=== PATIENT | male | born 1930 | race Caucasian/White ===

== ENCOUNTER 2017-11-14 23:34 | Inpatient (IN) | payer MEDICARE ==
[2017-11-15] LABS: #Lymphocytes 1.2 thou/uL (1.20-3.40); #Monocytes 0.8 thou/uL (0.11-0.59); %Basophils 0.2 % (0.0-1.0); %Eosinophils 0.2 % (0.0-10.0); %Lymphocytes 8.1 % (21.0-51.0); %Neutrophils 86.5 % (42.0-75.0); Hemoglobin 9.9 g/dL (14.0-18.0); Mean Platelet Volume 9.4 fL (7.4-10.4); Platelet Count 212 thou/uL (130-400); RBC Distribution Width 12.5 % (11.5-14.5); Red Blood Cell (RBC) Count 3.19 mill/uL (4.70-6.10)
[2017-11-15] MEDS ORDERED: Morphine 4 MG/ML VIAL ONE (00:02)
--- NOTE | 2017-11-15 00:06 | RAD ---
CHEST ONE VIEW: HISTORY: Chest pain. COMPARISON: Chest radiograph from 2008. FINDINGS: There are patchy opacities in both lung bases. No pneumothorax. No large effusion. The cardiac jesi houette is similar. IMPRESSION: Patchy opacities in both lung bases may reflect developing pneumonia. POS: [facility]
[2017-11-15 00:17] LABS: ALT (SGPT) 12 U/L (8-55); AST (SGOT) 8 U/L (5-34); Albumin 2.9 g/dL (3.4-4.8); Alkaline Phosphatase 66 U/L (40-150); Anion Gap 12 mmol/L (10-20); BUN (Urea Nitrogen) 31 mg/dL (8.4-25.7); Bilirubin, Total 0.4 mg/dL (0.2-1.2); Calc. Creatinine Clearance 0 mL/min (70-130); Calcium 8.1 mg/dL (7.8-10.44); Carbon Dioxide 26 mmol/L (23-31); Chloride 101 mmol/L (98-107); Estimated GFR-MDRD 49; Globulin 1.5 g/dL (2.4-3.5); Glucose 472 mg/dL (83-110); Lipase 35 U/L (8-78); Potassium 5.2 mmol/L (3.5-5.1); Protein, Total 4.4 g/dL (5.8-8.1); Sodium 134 mmol/L (136-145)
[2017-11-15 00:22] LABS: CKMB 3.2 ng/mL (0-6.6); Troponin I 0.038 ng/mL (< 0.028)
[2017-11-15] MEDS ORDERED: Cefepime 2 GM in Sodium Chloride 0.9% 100 ML IVPB SCH (01:15)
[2017-11-15 01:41] LABS: Bilirubin Negative (Negative); Blood, Urine Negative (Negative); Clarity CLEAR (Clear); Glucose, Urine (Dipstick) >=1000 mg/dL (Negative); Leukocyte Negative (Negative); Nitrite Negative (Negative); Protein, Urine (Dipstick) Negative (Neg-Trace); Specific Gravity, Urine 1.018 (1.002-1.036); Urobilinogen 0.2 mg/dL (0.2-1.0); pH, Urine 6.5 (5.0-9.0)
[2017-11-15 03:22] LABS: Troponin I 0.103 ng/mL (< 0.028)
[2017-11-15 03:41] LABS: Lactic Acid 1.4 mmol/L (0.5-2.2)
[2017-11-15] MEDS ORDERED: Sodium Chloride 0.9% 1,000 ML IV SCH ×2 (04:23→09:00)
[2017-11-15] MEDS ORDERED: Acetaminophen 325 MG TAB PO PRN (04:23)
[2017-11-15] MEDS ORDERED: Ondansetron HCl/PF 4 MG/2 ML Vial IVP PRN (04:23)
[2017-11-15] MEDS ORDERED: Ondansetron ODT 4 MG TAB SL PRN (04:23)
[2017-11-15 04:59] VITALS: BMI 36.6
[2017-11-15 08:20] LABS: Anion Gap 9 mmol/L (10-20); BUN (Urea Nitrogen) 35 mg/dL (8.4-25.7); Calc. Creatinine Clearance 71 mL/min (70-130); Calcium 8.1 mg/dL (7.8-10.44); Carbon Dioxide 26 mmol/L (23-31); Chloride 105 mmol/L (98-107); Estimated GFR-MDRD 59; Glucose 302 mg/dL (83-110); Magnesium 2.5 mg/dL (1.6-2.6); Potassium 4.6 mmol/L (3.5-5.1); Sodium 135 mmol/L (136-145)
[2017-11-15 08:23] LABS: Troponin I 0.906 ng/mL (< 0.028)
[2017-11-15] MEDS ORDERED: Nitroglycerin 0.4 MG TAB (25 Tab Bottle) PO PRN (08:49)
[2017-11-15] MEDS ORDERED: Ondansetron ODT 4 MG TAB PO PRN (08:50)
[2017-11-15] MEDS ORDERED: Mag-Al 1200 mg/1200 mg/30 ML UDCUP PO PRN (08:50)
[2017-11-15] MEDS ORDERED: Enoxaparin Sodium 40 MG/0.4 ML SYRINGE SC SCH ×2 (09:00→09:30)
[2017-11-15] MEDS ORDERED: Nitroglycerin 0.4 MG TAB (25 Tab Bottle) SL SCH (09:00)
[2017-11-15] MEDS ORDERED: Carvedilol 3.125 MG TAB PO SCH (09:00)
[2017-11-15] MEDS ORDERED: Lisinopril 20 MG TAB PO SCH ×2 (09:00)
[2017-11-15 09:11] LABS: Hemoglobin A1c 7.3 % (4.0-6.0)
[2017-11-15] MEDS ORDERED: Dextrose 5% in Water 1,000 ML IV PRN (09:26)
[2017-11-15] MEDS ORDERED: Dextrose 50% Abboject 50 ML SYRINGE SLOW IVP PRN (09:26)
[2017-11-15] MEDS ORDERED: Insulin Regular 300 UNITS/3 ML VIAL SC PRN (09:26)
[2017-11-15] MEDS ORDERED: Enoxaparin Sodium 120 MG/0.8 ML SYRINGE SC SCH ×2 (09:45→19:45)
[2017-11-15 09:57] LABS: Hemoglobin 9.8 g/dL (14.0-18.0); Mean Corpuscular HGB CONC 32.8 g/dL (32.0-36.0); Mean Corpuscular Hemoglobin 30.6 pg (27.0-31.0); Mean Corpuscular Volume 93.3 fL (78.0-98.0); Mean Platelet Volume 9.3 fL (7.4-10.4); Platelet Count 188 thou/uL (130-400); RBC Distribution Width 12.6 % (11.5-14.5); White Blood Cell (WBC) Count 19.1 thou/uL (4.8-10.8)
--- NOTE | 2017-11-15 09:59 | CON ---
DATE OF CONSULTATION: 11/15/2017 REASON FOR CONSULTATION: Pain between his shoulder blades, non-ST elevation myocardial infarction. Mr. Nir Johnson is an 87-year-old gentleman with history of hypertension, coronary artery disease, ob esity, transferred here with shortness of breath and increased white count, thought to have pneumonia , but appears to have had a non-ST elevation infarction. Mr. Johnson has a very long cardiac history. He underwent a percutaneous coronary angioplasty of a di agonal branch in 1995. At that time diagonal branch was successfully dilated. The patient may actually have had a previous angioplasty prior to that, it is unclear from the record s available in the chart. The patient presented with recurrent chest pain between his shoulder blade s 2000, that was found to have a stable lesion in his diagonal branch, but a critical lesion is right coronary artery. He had successful stent implantation. I believe it is 3 mm x 15 mm nondrug coated stent. The patient has done really well from a cardiac standpoint since then. He has had some hype rtension and peripheral edema. He was transferred from an outlying institution on this occasion with shortness of breath, some pain between his shoulder blades. The white count was elevated. He was t hought to potentially have pneumonia, but his follow up cardiac enzymes have been elevated. MEDICATIONS: 1. He was on aspirin. 2. Nitroglycerin. 3. Tamsulosin. 4. Lisinopril. 5. Furosemide. 6. Carvedilol. 7. Atorvastatin. 8. Amlodipine. ALLERGIES: FLUORESCEIN DYE, HYDROCODONE, PENICILLIN. REVIEW OF SYSTEMS: Constitutional: No significant weight gain or loss, but he is in active and rela tively poor health. Vision: No changes. Hearing: No changes. Pulmonary: Some shortness of breat h with exertion. Cardiac: As outlined above. Gastrointestinal: No nausea, vomiting, diarrhea. Sk in: No rashes. Neurologic: No unilateral weakness or numbness. Psychiatric: No unusual depressio n or anxiety. Hematologic: No unusual bruising. Genitourinary: No burning with urination. Muscul oskeletal: No unusual joint pains. PHYSICAL EXAMINATION: GENERAL: This is an 87-year-old gentleman resting in his bed, not having any pain now. VITAL SIGNS: His blood pressure is 126/61, pulse 74 regular. EYES: Sclerae nonicteric. Mouth mucous membranes moist. NECK: Supple, no lymphadenopathy. LUNGS: Clear, no wheezing, rales or rhonchi. CARDIOVASCULAR: Normal S1, normal S2. There is no murmur, rub or gallop. ABDOMEN: Soft, nontender, no hepatosplenomegaly, is obese. EXTREMITIES: No clubbing or cyanosis. He has mild to moderate edema. He has palpable posterior tib ial pulses. LABORATORY AND X-RAY FINDINGS: EKG initially did not show any acute changes. He does have right bun dle branch block with a left axis deviation. Followup EKG shows some T-wave inversions in V4 through V6. Troponin level 0.9. ASSESSMENT: 1. Non-ST elevation myocardial infarction. 2. History of hypertension. 3. Relatively inactive and would be a very poor candidate for surgical therapy. 4. Probably has sleep apnea. 5. Hypercholesterolemia. PLAN: 1. I will give him a full dose enoxaparin. 2. We will load him with Plavix. I think he would be a very poor surgical candidate. 3. Continue aspirin. 4. Echocardiogram. 5. Tentative plan for cardiac catheterization tomorrow. I discussed risks of stroke, heart attack, iodine allergy, loss of blood supply to the leg or kidney, stent thrombosis, stent restenosis. He un derstands and wishes to proceed.
[2017-11-15] MEDS ORDERED: Communication Order-Pharmacy FS SCH (10:00)
[2017-11-15 10:25] LABS: #Eosinphils 0.1 thou/uL (0.0-0.7); #Lymphocytes 1.5 thou/uL (1.20-3.40); #Monocytes 1.5 thou/uL (0.11-0.59); %Basophils 0.1 % (0.0-1.0); %Eosinophils 0.4 % (0.0-10.0); %Lymphocytes 7.7 % (21.0-51.0); %Monocytes 7.9 % (0.0-10.0); %Neutrophils 83.9 % (42.0-75.0); Band 9 % (5-11); Eosinophils 1 % (0-10); Lymphocytes 10 % (21-51); MDiff Complete? YES; Monocytes 8 % (0-10); Neutrophil 72 % (42-75); PLT Morphology Comment Appears Adequate; Polychromasia SLIGHT = 2-3 cells (100X) (0-2/hpf)
[2017-11-15] MEDS: Docusate 100 MG CAP PO SCH ×2 (10:27→22:20)
[2017-11-15] MEDS: Carvedilol 3.125 MG TAB PO SCH ×2 (10:27→23:21)
[2017-11-15] MEDS: Atorvastatin Calcium 40 MG TAB PO SCH (10:27)
[2017-11-15] MEDS: Aspirin 325 MG TAB PO SCH (10:27)
[2017-11-15] MEDS: Famotidine 20 MG TAB PO SCH ×2 (10:27→22:21)
[2017-11-15] MEDS: Nitroglycerin 2% Ointment 1 INCH/1 GM Packet TOP SCH ×3 (10:27→18:48)
[2017-11-15] MEDS: Insulin Regular 300 UNITS/3 ML VIAL SC PRN ×2 (10:28→16:57)
[2017-11-15] MEDS: Tamsulosin HCl 0.4 MG CAP PO SCH (10:28)
[2017-11-15] MEDS: Cefepime 1 GM in Sodium Chloride 0.9% 100 ML IVPB SCH ×2 (11:58→22:19)
[2017-11-15] MEDS: Timolol 0.5% Ophth Soln 5 ml Bottle EA EYE SCH (12:00)
[2017-11-15 12:57] LABS: Troponin I 1.836 ng/mL (< 0.028)
--- NOTE | 2017-11-15 13:23 | HP ---
DATE OF ADMISSION: 11/15/2017 PRIMARY CARE PHYSICIAN: Radha Monroe MD PRIMARY TERRA [place]: Dr. Smiley. CHIEF COMPLAINT: Chest discomfort. HISTORY OF PRESENT ILLNESS: Patient is an 87-year-old male with coronary artery disease, status post stent placement, obesity with suspected obstructive sleep apnea, hypertension, and hyperlipidemia, p resented to the emergency room with sudden onset of chest discomfort between his scapula that woke hi m up around 10:30 p.m. It was severe in intensity, associated with shortness of breath and diaphores is. There were no associated palpitations, lightheadedness or syncope. There was some nausea; howev er, denies any vomiting. Lately, patient has been getting short of breath on minimal exertion accord ing to the spouse. Please note that patient is a poor historian and history was obtained from the sp ou over the phone. There was no heartburn reported. He occasionally has dry cough. Patient state d that the pain radiated to his left arm. He is chest pain free at this time. PAST MEDICAL HISTORY: 1. Coronary artery disease, status post stent placement. 2. History of prostate cancer, status post radiation and hormone treatment. 3. Hypertension. 4. Dyslipidemia. 5. Glaucoma. 6. Diverticulosis. 7. Macular degeneration. 8. Degenerative joint disease. 9. Prediabetes. 10. Basal cell carcinoma, status post removal in 1984. PAST SURGICAL HISTORY: 1. Coronary stent placement in 2000. 2. Lumbar surgery in 2007. 3. Right knee meniscus repair. 4. Bilateral cataract surgery in 2012. 5. Colonoscopy in 2010. He was advised to repeat colonoscopy; however, the patient declined. ALLERGIES: The patient is allergic to HYDROCODONE, PENICILLIN, and FLUORESCEIN. CURRENT HOME MEDICATIONS: Aspirin 81 mg daily, amlodipine 5 mg daily, sublingual nitroglycerin as ne eded, Lipitor 40 mg daily, Carvedilol 3.125 mg b.i.d., Lasix 40 mg b.i.d., lisinopril 20 mg b.i.d., m agnesium oxide 800 mg daily, Flomax 0.4 mg daily, timolol eyedrops daily. SOCIAL HISTORY: Patient currently lives at home with spouse. He is a former smoker, quit in the 199 0s. He is retired. He has 3 children. He retired from [employer]. DPOA is the spouse. He is FULL CODE. FAMILY HISTORY: Positive for heart disease. Mother had colon cancer. One son with prostate cancer. REVIEW OF SYSTEMS: The following complete review of systems was negative, unless otherwise mentioned in the HPI or below: Constitutional: Weight loss or gain, ability to conduct usual activities. Sk in: Rash, itching. Eyes: Double vision, pain. ENT/Mouth: Nose bleeding, neck stiffness, pain, ten derness. Cardiovascular: Palpitations, dyspnea on exertion, orthopnea. Respiratory: Shortness of breath, wheezing, cough, hemoptysis, fever or night sweats. Gastrointestinal: Poor appetite, abdomi nal pain, heartburn, nausea, vomiting, constipation, or diarrhea. Genitourinary: Urgency, frequency , dysuria, nocturia. Musculoskeletal: Pain, swelling. Neurologic/Psychiatric: Anxiety, depression . Allergy/Immunologic: Skin rash, bleeding tendency. PHYSICAL EXAMINATION: VITAL SIGNS: Temperature 98.2, respirations 20, pulse 78, blood pressure 107/44 with O2 saturation 9 4% on room air. GENERAL: An 87-year-old male, obese, in no apparent distress. Denies any chest discomfort at this t wendi. HEENT: Head atraumatic, normocephalic. Sclerae are anicteric. Moist mucous membrane, no oral lesio n. NECK: Supple, no JVD, no carotid bruit. Again, JVD not really appreciated due to body habitus. LUNGS: Showed scattered rales at bases bilaterally. No wheezing. Lungs were symmetrical. No acces gemma muscle use. HEART: S1, S2 present. Regular rate and rhythm, no significant murmurs or rubs appreciated. ABDOMEN: Obese, soft. Bowel sounds present. EXTREMITIES: Trace edema in bilateral lower extremities. SKIN: Warm and dry. LYMPH NODES: No palpable lymph nodes in the neck. PERIPHERAL VASCULAR: Radial pulses palpable bilaterally. MUSCULOSKELETAL: No joint swelling or tenderness. LABORATORY FINDINGS: CBC showed WBC of 19.1 with hemoglobin 9.8, hematocrit 29.8, platelet of 188. Chemistries showed sodium 134, potassium 5.2, chloride 101, bicarb 26, BUN 31, creatinine 1.38. Hemo globin A1c 7.3. Maximum troponin 0.9. Lactic acid on admission was 2.5, albumin 2.9 with total prot ein of 4.4. Urinalysis was negative for WBC, bacteria. Influenza testing was negative. Chest x-ray by my review showed some patchy opacities in both the lung base. EKG by my review showed sinus rhyt hm with first degree AV block, left axis deviation, right bundle branch block with T-wave inversions in the lateral leads. IMPRESSION: 1. Non-ST elevation myocardial infarction. 2. Leukocytosis with questionable infiltrate suspected community-acquired pneumonia, questionable pn eumococcal. 3. Acute kidney injury on chronic kidney disease stage 2. 4. Coronary artery disease, status post stent placement. 5. Obesity with a body mass index of 36.7. 6. Suspected obstructive sleep apnea. 7. Moderate protein calorie malnutrition. 8. Hyperkalemia, probably secondary to acute kidney injury. 9. Hyponatremia. 10. Newly diagnosed diabetes mellitus type 2. 11. Lactic acidosis, probably secondary to suspected pneumonia. 12. Chronic anemia, normochromic normocytic. 13. History of prostate cancer. 14. Dyslipidemia. 15. Venous insufficiency. 16. Glaucoma. 17. Diverticulosis. PLAN: The patient will be monitored on telemetry unit. Cardiology has been consulted. We will cont inue aspirin. I discussed the case with Dr. Smiley. He will also receive a loading dose of Plavix w ith 1 mg/kg dose of Lovenox. We will empirically start him on antibiotics for suspected pneumonia. We will recheck chest x-ray in a.m. We will reduce the dose of lisinopril due to acute kidney injury and hyperkalemia. We will recheck labs in a.m. Repeat troponins. We will hold IV fluids due to hess spected congestive heart failure. Echocardiogram will be obtained. We will keep him n.p.o. past mid night for possible cardiac intervention. Plan of care was discussed with the patient and the family in detail. They stated understanding. The patient will require 2-3 days for stabilization. Cardiac rehabilitation will be consulted.
[2017-11-15] MEDS: Lisinopril 10 MG TAB PO SCH (23:27)
[2017-11-16] MEDS: Nitroglycerin 2% Ointment 1 INCH/1 GM Packet TOP SCH ×3 (02:45→17:15)
[2017-11-16] MEDS ORDERED: Clopidogrel Bisulfate 75 MG TAB PO SCH (06:00)
[2017-11-16 06:41] LABS: #Eosinphils 0.2 thou/uL (0.0-0.7); #Lymphocytes 1.4 thou/uL (1.20-3.40); #Monocytes 0.8 thou/uL (0.11-0.59); #Neutrophils 13.4 thou/uL (1.40-6.50); %Basophils 0.2 % (0.0-1.0); %Eosinophils 1.2 % (0.0-10.0); %Lymphocytes 9.1 % (21.0-51.0); %Monocytes 4.9 % (0.0-10.0); %Neutrophils 84.6 % (42.0-75.0); Hemoglobin 8.6 g/dL (14.0-18.0); Mean Corpuscular HGB CONC 32.9 g/dL (32.0-36.0); Mean Corpuscular Hemoglobin 31.2 pg (27.0-31.0); Mean Corpuscular Volume 94.6 fL (78.0-98.0); Mean Platelet Volume 9.3 fL (7.4-10.4); Platelet Count 182 thou/uL (130-400); RBC Distribution Width 12.8 % (11.5-14.5); Red Blood Cell (RBC) Count 2.75 mill/uL (4.70-6.10); White Blood Cell (WBC) Count 15.8 thou/uL (4.8-10.8)
[2017-11-16 06:44] LABS: Anion Gap 9 mmol/L (10-20); BUN (Urea Nitrogen) 59 mg/dL (8.4-25.7); Calc. Creatinine Clearance 73 mL/min (70-130); Calcium 8.2 mg/dL (7.8-10.44); Carbon Dioxide 27 mmol/L (23-31); Chloride 106 mmol/L (98-107); Estimated GFR-MDRD 61; Glucose 214 mg/dL (83-110); Magnesium 2.5 mg/dL (1.6-2.6); Potassium 4.4 mmol/L (3.5-5.1); Sodium 138 mmol/L (136-145)
[2017-11-16 06:48] LABS: Critical Call Chem Troponin I RESULT DECREASING; Troponin I 1.201 ng/mL (< 0.028)
[2017-11-16] MEDS ORDERED: Sodium Chloride 0.9% 1,000 ML IV SCH ×2 (07:00→09:28)
[2017-11-16] MEDS: Clopidogrel Bisulfate 300 MG TAB PO SCH ×2 (07:14→07:17)
[2017-11-16] MEDS ORDERED: Nitroglycerin 100MG/250ML BOT 0 ML ONE (07:16)
[2017-11-16] MEDS ORDERED: Lidocaine 1% (PF) 30 ML VIAL ONE (07:16)
[2017-11-16] MEDS: Lisinopril 10 MG TAB PO SCH (07:17)
[2017-11-16] MEDS: Aspirin 325 MG TAB PO SCH (07:17)
[2017-11-16] MEDS: Carvedilol 3.125 MG TAB PO SCH ×2 (07:18→21:22)
[2017-11-16] MEDS: Cefepime 1 GM in Sodium Chloride 0.9% 100 ML IVPB SCH ×2 (07:22→22:34)
[2017-11-16] MEDS ORDERED: Fentanyl 100 MCG/2 ML VIAL ONE (08:49)
[2017-11-16] MEDS ORDERED: Iopamidol 370 76% 100 ML VIAL ONE (09:01)
--- NOTE | 2017-11-16 09:13 | RAD ---
CHEST TWO VIEWS: HISTORY: Shortness of breath. FINDINGS: Heart size is enlarged. There are atherosclerotic changes of the aorta. The lungs are clear of inf iltrates. There are arthritic changes of the spine. IMPRESSION: Cardiomegaly. POS: [facility]
[2017-11-16] MEDS ORDERED: Nitroglycerin 0.4 MG TAB (25 Tab Bottle) SL PRN (09:29)
[2017-11-16] MEDS ORDERED: Sodium Chloride 0.9% 200 ML IV PRN (09:30)
[2017-11-16] MEDS: Atorvastatin Calcium 40 MG TAB PO SCH (11:17)
[2017-11-16] MEDS: Ondansetron HCl/PF 4 MG/2 ML Vial IVP PRN (11:18)
[2017-11-16] MEDS: Famotidine 20 MG TAB PO SCH ×2 (11:18→21:22)
[2017-11-16] MEDS: Tamsulosin HCl 0.4 MG CAP PO SCH (11:18)
[2017-11-16] MEDS: Docusate 100 MG CAP PO SCH ×2 (11:18→21:22)
[2017-11-16] MEDS: Timolol 0.5% Ophth Soln 5 ml Bottle EA EYE SCH (11:26)
[2017-11-16] MEDS: Acetaminophen 325 MG TAB PO PRN (14:02)
[2017-11-16] MEDS: traMADol HCl 50 MG TAB PO PRN (17:17)
[2017-11-16] MEDS ORDERED: Furosemide 20 MG/2 ML VIAL SLOW IVP SCH (18:30)
[2017-11-16] MEDS: Senokot 8.6 MG TAB PO PRN (19:11)
[2017-11-16] MEDS: Lisinopril 5 MG TAB PO SCH (21:23)
--- NOTE | 2017-11-16 22:17 | PDOC.PN ---
- Subjective Encounter Start Date: 11/16/17 Encounter Start Time: 12:30 Patient seen and examined for NSTEMI/Pneumonia. s/p Cath. No CP/SOB. Feels better. No new complaints. No overnight events - Objective Resuscitation Status: Resuscitation Status FULL:Full Resuscitation MAR Reviewed: Yes Vital Signs & Weight: Vital Signs (12 hours) Temp Pulse Resp BP BP Pulse Ox 11/16/17 21:23 100 124/76 11/16/17 15:18 97.6 F 68 17 122/75 97 11/16/17 11:56 98.1 F 63 20 135/71 95 11/16/17 11:26 70 Weight Admit Weight 241 lb 1.6 oz Weight 241 lb 1.6 oz I&O: 11/15/17 11/16/17 11/17/17 06:59 06:59 06:59 Intake Total 900 Balance 900 Result Diagrams: 11/16/17 05:44 11/16/17 05:44 Additional Labs: Accuchecks 11/16/17 11/16/17 11/16/17 16:42 10:48 05:49 POC Glucose 215 H 224 H 229 H EKG Reviewed by me: Yes (Tele SR) Phys Exam - Physical Examination Constitutional: NAD Neck: no nodes, no JVD Respiratory: no wheezing, no rhonchi Scat bibasilar rales, Symmetrical Cardiovascular: RRR, no rub No heaves/pulsations Gastrointestinal: soft, non-tender, positive bowel sounds Musculoskeletal: no edema Neurological: non-focal, normal sensation, moves all 4 limbs Psychiatric: normal affect, A&O x 3 Dx/Plan - Plan DVT proph w/SCDs IMPRESSION: 1. Non-ST elevation myocardial infarction. 2. Leukocytosis with questionable infiltrate suspected community-acquired pneumonia, questionable pneumococcal. - ruled out 3. Acute kidney injury on chronic kidney disease stage 2. 4. Coronary artery disease, status post stent placement. 5. Obesity with a body mass index of 36.7. 6. Suspected obstructive sleep apnea. 7. Moderate protein calorie malnutrition. 8. Hyperkalemia, probably secondary to acute kidney injury. 9. Hyponatremia. 10. Newly diagnosed diabetes mellitus type 2. 11. Lactic acidosis, probably secondary to suspected pneumonia. 12. Chronic anemia, normochromic normocytic. 13. History of prostate cancer. 14. Dyslipidemia. 15. Venous insufficiency. 16. Glaucoma. 17. Diverticulosis. PLAN: s/p Cath DC ATbx- No infiltrates on CXR - PA and Lat AM labs Cont ASA/Plavix/Coreg/Statins/ACEI Await Echo Review of Systems - Review of Systems Respiratory: negative: Cough, Dry, Shortness of Breath, Hemoptysis, SOB with Excertion, Pleuritic Pain, Sputum, Wheezing Cardiovascular: negative: chest pain, palpitations, orthopnea, paroxysmal nocturnal dyspnea, edema, light headedness, other Gastrointestinal: negative: Nausea, Vomiting, Abdominal Pain, Diarrhea, Constipation, Melena, Hematochezia, Other - Medications/Allergies Allergies/Adverse Reactions: Allergies Allergy/AdvReac Type Severity Reaction Status Date / Time fluorescein Allergy Verified 11/15/17 05:04 hydrocodone Allergy Verified 11/15/17 05:03 Penicillins Allergy Verified 11/15/17 05:03 Medications: Current Medications Acetaminophen (Tylenol) 650 mg PO Q4H PRN PRN Reason: Headache/Fever or Pain Last Admin: 11/16/17 14:02 Dose: 650 mg Al Hydroxide/Mg Hydroxide (Maalox) 30 ml PO Q6H PRN PRN Reason: Heartburn or Indigestion Aspirin (Aspirin) 325 mg PO DAILY [facility] Last Admin: 11/16/17 07:17 Dose: 325 mg Atorvastatin Calcium (Lipitor) 40 mg PO DAILY [facility] Last Admin: 11/16/17 11:17 Dose: 40 mg Calcium Carbonate (Tums) 1,000 mg PO Q4H PRN PRN Reason: Heartburn or Indigestion Carvedilol (Coreg) 6.25 mg PO BID [facility] Last Admin: 11/16/17 21:22 Dose: 6.25 mg Dextrose/Water (Dextrose 50%) 25 gm SLOW IVP PRN PRN PRN Reason: Hypoglycemia Docusate Sodium (Colace) 100 mg PO BID [facility] Last Admin: 11/16/17 21:22 Dose: 100 mg Famotidine (Pepcid) 20 mg PO BID [facility] Last Admin: 11/16/17 21:22 Dose: 20 mg Glucagon (Glucagon) 1 mg IM PRN PRN PRN Reason: Hypoglycemia Cefepime HCl 1 gm/ Sodium (Chloride) 100 mls @ 200 mls/hr IVPB Q12HR [facility] Last Admin: 11/16/17 07:22 Dose: 100 mls Dextrose/Water (D5w) 1,000 mls @ 0 mls/hr IV .Q0M PRN PRN Reason: Hypoglycemia Sodium Chloride (Normal Saline 0.9%) 200 mls @ 0 mls/hr IV ONE PRN PRN Reason: Bolus PRN SBP < 90 mm Hg Stop: 11/19/17 09:31 Lisinopril (Zestril) 5 mg PO BID [facility] Last Admin: 11/16/17 21:23 Dose: 5 mg Nitroglycerin (Nitro-Bid 2% Ointment) 0.5 inch TOP Q8H [facility] Last Admin: 11/16/17 17:15 Dose: 0.5 inch Nitroglycerin (Nitrostat) 0.4 mg PO Q5MIN PRN PRN Reason: Chest Pain Nitroglycerin (Nitrostat) 0.4 mg SL Q5MIN PRN PRN Reason: Chest Pain Ondansetron HCl (Zofran Odt) 4 mg PO Q6H PRN PRN Reason: Nausea/Vomiting Ondansetron HCl (Zofran) 4 mg IVP Q6H PRN PRN Reason: Nausea/Vomiting Last Admin: 11/16/17 11:18 Dose: 4 mg Senna (Senokot) 2 tab PO HSPRN PRN PRN Reason: Constipation Last Admin: 11/16/17 19:11 Dose: 2 tab Sodium Chloride (Flush - Normal Saline) 10 ml IVF Q12HR [facility] Last Admin: 11/16/17 21:24 Dose: 10 ml Sodium Chloride (Flush - Normal Saline) 10 ml IVF PRN PRN PRN Reason: Saline Flush Tamsulosin HCl (Flomax) 0.4 mg PO DAILY [facility] Last Admin: 11/16/17 11:18 Dose: 0.4 mg Timolol Maleate (Timoptic 0.5% Ophth Soln) 1 drop EA EYE DAILY [facility] Last Admin: 11/16/17 11:26 Dose: 1 drp Tramadol HCl (Ultram) 50 mg PO Q6H PRN PRN Reason: Moderate Pain (4-6) Last Admin: 11/16/17 17:17 Dose: 50 mg
[2017-11-17 05:58] LABS: Anion Gap 9 mmol/L (10-20); BUN (Urea Nitrogen) 38 mg/dL (8.4-25.7); Calc. Creatinine Clearance 84 mL/min (70-130); Calcium 8.2 mg/dL (7.8-10.44); Carbon Dioxide 27 mmol/L (23-31); Chloride 106 mmol/L (98-107); Estimated GFR-MDRD 71; Glucose 190 mg/dL (83-110); Potassium 4.4 mmol/L (3.5-5.1); Sodium 138 mmol/L (136-145)
[2017-11-17 06:02] LABS: #Eosinphils 0.2 thou/uL (0.0-0.7); #Lymphocytes 1.2 thou/uL (1.20-3.40); #Monocytes 0.9 thou/uL (0.11-0.59); #Neutrophils 12.5 thou/uL (1.40-6.50); %Basophils 0.3 % (0.0-1.0); %Eosinophils 1.5 % (0.0-10.0); %Lymphocytes 8.4 % (21.0-51.0); %Monocytes 6.1 % (0.0-10.0); %Neutrophils 83.7 % (42.0-75.0); Mean Corpuscular HGB CONC 32.6 g/dL (32.0-36.0); Mean Corpuscular Volume 94.9 fL (78.0-98.0); Mean Platelet Volume 9.1 fL (7.4-10.4); Platelet Count 187 thou/uL (130-400); RBC Distribution Width 13.2 % (11.5-14.5); Red Blood Cell (RBC) Count 2.57 mill/uL (4.70-6.10); White Blood Cell (WBC) Count 14.9 thou/uL (4.8-10.8)
[2017-11-17] MEDS: Aspirin 325 MG TAB PO SCH (08:02)
[2017-11-17] MEDS: Carvedilol 3.125 MG TAB PO SCH ×2 (08:02→21:34)
[2017-11-17] MEDS: Famotidine 20 MG TAB PO SCH ×2 (08:02→21:32)
[2017-11-17] MEDS: Lisinopril 5 MG TAB PO SCH ×2 (08:02→21:31)
[2017-11-17] MEDS: Atorvastatin Calcium 40 MG TAB PO SCH (08:02)
[2017-11-17] MEDS: Docusate 100 MG CAP PO SCH (08:02)
[2017-11-17] MEDS: Timolol 0.5% Ophth Soln 5 ml Bottle EA EYE SCH (08:03)
[2017-11-17] MEDS: Tamsulosin HCl 0.4 MG CAP PO SCH (08:03)
[2017-11-17] MEDS: traMADol HCl 50 MG TAB PO PRN ×2 (08:04→19:18)
[2017-11-17] MEDS ORDERED: Aspirin 325 MG TAB PO SCH (09:00)
--- NOTE | 2017-11-17 09:07 | PRG ---
DATE OF SERVICE: 11/17/2017 SUBJECTIVE: Mr. Johnson this morning started having chest pain or pressure. He said he slept well, b ut he is frustrated this morning. He is constipated. He had some shoulder pain, but does not sound like angina. PHYSICAL EXAMINATION: VITAL SIGNS: Blood pressure is 119/71, pulse 70, it is sinus with PACs on the monitor. LUNGS: Clear. CARDIAC: Normal S1, normal S2 with some premature contractions. ABDOMEN: Soft, nontender. EXTREMITIES: There is mild edema. LABORATORY: The hemoglobin is decreased to 8. ASSESSMENT: 1. Coronary artery disease, stable, has occluded right coronary artery, likely chronic with multiple subtotal lesions prior to the occlusion. There are collaterals from the left side. 2. Ejection fraction is 55-60%. 3. Some element of diastolic heart failure with increased BNP. 4. Premature atrial contractions. 5. Obesity. 6. Probable sleep apnea. 7. Constipation. PLAN: 1. He will receive lactulose. 2. Check iron levels, if he is low give him intravenous iron. 3. He may ultimately need blood, if so, he will need Lasix as well. 4. Continue carvedilol and lisinopril. 5. Aspirin without Plavix. 6. Statin certainly at the time of discharge.
[2017-11-17] MEDS ORDERED: Bisacodyl 10 MG SUPP PR PRN (09:38)
[2017-11-17] MEDS ORDERED: Polyethylene Glycol 3350 17 GM Packet PO SCH (09:45)
[2017-11-17] MEDS ORDERED: Senokot S 8.6-50 MG TAB PO SCH (09:45)
[2017-11-17 09:53] LABS: Iron 84 ug/dL (65-175); Iron Binding Capacity, Total 260 mcg/dL (261-462)
[2017-11-17] MEDS: Insulin Regular 300 UNITS/3 ML VIAL SC PRN ×3 (11:50→21:39)
[2017-11-17] MEDS: Ondansetron HCl/PF 4 MG/2 ML Vial IVP PRN (12:01)
[2017-11-17] MEDS ORDERED: Fleet Enema 133 ML BOT PR PRN (13:06)
--- NOTE | 2017-11-17 15:26 | RAD ---
KUB AND UPRIGHT: HISTORY: Abdominal pain and constipation. FINDINGS: The bowel gas pattern appears nonobstructed. No free air. No radiopaque calculi are demonstrated. There are arthritic changes of the spine and hips. Vascular calcifications are noted. IMPRESSION: No acute findings. POS: [facility]
--- NOTE | 2017-11-17 18:41 | PDOC.PN ---
- Subjective Encounter Start Date: 11/17/17 Encounter Start Time: 09:00 Patient seen and examined for NSTEMI. No new complaints. No CP/cough. No overnight events - Objective Resuscitation Status: Resuscitation Status FULL:Full Resuscitation MAR Reviewed: Yes Vital Signs & Weight: Vital Signs (12 hours) Temp Pulse Pulse Pulse Resp BP BP 11/17/17 15:53 97.8 F 65 16 11/17/17 11:56 97.9 F 67 18 11/17/17 11:39 97.9 F 67 18 11/17/17 09:40 76 66 128/65 11/17/17 08:03 68 119/71 11/17/17 08:02 68 119/71 11/17/17 07:40 11/17/17 07:32 97.4 F L 68 20 BP BP Pulse Ox 11/17/17 15:53 126/61 97 11/17/17 11:56 112/55 L 96 11/17/17 11:39 112/55 L 96 11/17/17 09:40 111/56 L 11/17/17 08:03 11/17/17 08:02 11/17/17 07:40 96 11/17/17 07:32 119/71 96 Weight Admit Weight 241 lb 1.6 oz Weight 241 lb 1.6 oz I&O: 11/16/17 11/17/17 11/18/17 06:59 06:59 06:59 Intake Total 900 460 600 Balance 900 460 600 Result Diagrams: 11/17/17 05:08 11/17/17 05:08 Additional Labs: Accuchecks 11/17/17 11/17/17 11/17/17 16:49 10:42 06:25 POC Glucose 263 H 241 H 201 H 11/17/17 11/16/17 02:08 20:32 POC Glucose 214 H 243 H EKG Reviewed by me: Yes (Tele SR) Phys Exam - Physical Examination Constitutional: NAD Respiratory: no wheezing, no rhonchi Cardiovascular: RRR, no rub Gastrointestinal: soft, non-tender, positive bowel sounds Musculoskeletal: no edema Neurological: non-focal, moves all 4 limbs Psychiatric: A&O x 3 Dx/Plan - Plan DVT proph w/SCDs IMPRESSION: 1. Non-ST elevation myocardial infarction. s/p Cath 2. Acute kidney injury on chronic kidney disease stage 2. 3. Coronary artery disease, status post stent placement. 4. Newly diagnosed diabetes mellitus type 2. on Sliding scale 5. Obesity with a body mass index of 36.7. 6. Suspected obstructive sleep apnea. 7. Moderate protein calorie malnutrition. 8. Hyperkalemia, probably secondary to acute kidney injury. 9. Hyponatremia. 10. Diverticulosis. 11. Lactic acidosis, probably secondary to suspected pneumonia. 12. Chronic anemia, normochromic normocytic. 13. History of prostate cancer. 14. Dyslipidemia. 15. Venous insufficiency. 16. Glaucoma. PLAN: Cont ASA/Coreg/Statins/ACEI Echo - normal EF Stat Metformin in AM Treat constipation CBC in AM Review of Systems - Review of Systems Respiratory: negative: Cough, Dry, Shortness of Breath, Hemoptysis, SOB with Excertion, Pleuritic Pain, Sputum, Wheezing Cardiovascular: negative: chest pain, palpitations, orthopnea, paroxysmal nocturnal dyspnea, edema, light headedness, other Gastrointestinal: Constipation. negative: Nausea, Vomiting, Abdominal Pain, Diarrhea, Melena, Hematochezia, Other - Medications/Allergies Allergies/Adverse Reactions: Allergies Allergy/AdvReac Type Severity Reaction Status Date / Time fluorescein Allergy Verified 11/15/17 05:04 hydrocodone Allergy Verified 11/15/17 05:03 Penicillins Allergy Verified 11/15/17 05:03 Medications: Current Medications Acetaminophen (Tylenol) 650 mg PO Q4H PRN PRN Reason: Headache/Fever or Pain Last Admin: 11/16/17 14:02 Dose: 650 mg Al Hydroxide/Mg Hydroxide (Maalox) 30 ml PO Q6H PRN PRN Reason: Heartburn or Indigestion Aspirin (Aspirin Chewable) 81 mg PO DAILY [facility] Last Admin: 11/17/17 09:21 Dose: Not Given Atorvastatin Calcium (Lipitor) 40 mg PO DAILY [facility] Last Admin: 11/17/17 08:02 Dose: 40 mg Bisacodyl (Dulcolax) 10 mg LA DAILYPRN PRN PRN Reason: Constipation Last Admin: 11/17/17 11:56 Dose: 10 mg Calcium Carbonate (Tums) 1,000 mg PO Q4H PRN PRN Reason: Heartburn or Indigestion Carvedilol (Coreg) 6.25 mg PO BID [facility] Last Admin: 11/17/17 08:02 Dose: 6.25 mg Dextrose/Water (Dextrose 50%) 25 gm SLOW IVP PRN PRN PRN Reason: Hypoglycemia Famotidine (Pepcid) 20 mg PO BID [facility] Last Admin: 11/17/17 08:02 Dose: 20 mg Glucagon (Glucagon) 1 mg IM PRN PRN PRN Reason: Hypoglycemia Dextrose/Water (D5w) 1,000 mls @ 0 mls/hr IV .Q0M PRN PRN Reason: Hypoglycemia Sodium Chloride (Normal Saline 0.9%) 200 mls @ 0 mls/hr IV ONE PRN PRN Reason: Bolus PRN SBP < 90 mm Hg Stop: 11/19/17 09:31 Iron Dextran 500 mg/ Sodium (Chloride) 250 mls @ 80 mls/hr IVPB ONE [facility] Insulin Human Regular (Humulin R) 0 units SC .MILD SLIDING SCALE PRN PRN Reason: Mild Correctional Scale Last Admin: 11/17/17 17:28 Dose: 4 unit Insulin Human Regular (Humulin R) 0 units SC .BEDTIME SLIDING SC PRN PRN Reason: Bedtime Correctional Scale Lisinopril (Zestril) 5 mg PO BID [facility] Last Admin: 11/17/17 08:02 Dose: 5 mg Nitroglycerin (Nitrostat) 0.4 mg SL Q5MIN PRN PRN Reason: Chest Pain Ondansetron HCl (Zofran Odt) 4 mg PO Q6H PRN PRN Reason: Nausea/Vomiting Ondansetron HCl (Zofran) 4 mg IVP Q6H PRN PRN Reason: Nausea/Vomiting Last Admin: 11/17/17 12:01 Dose: 4 mg Polyethylene Glycol (Miralax) 17 gm PO DAILY [facility] Senna (Senokot) 2 tab PO HSPRN PRN PRN Reason: Constipation Last Admin: 11/16/17 19:11 Dose: 2 tab Senna/Docusate Sodium (Senokot S) 2 tab PO BID [facility] Sodium Biphosphate/Sodium Phosphate (Fleet Enema) 133 ml LA DAILY PRN PRN Reason: Constipation Sodium Chloride (Flush - Normal Saline) 10 ml IVF Q12HR [facility] Last Admin: 11/17/17 08:03 Dose: 10 ml Sodium Chloride (Flush - Normal Saline) 10 ml IVF PRN PRN PRN Reason: Saline Flush Tamsulosin HCl (Flomax) 0.4 mg PO DAILY [facility] Last Admin: 11/17/17 08:03 Dose: 0.4 mg Timolol Maleate (Timoptic 0.5% Oph Soln) 1 drop EA EYE DAILY [facility] Last Admin: 11/17/17 08:03 Dose: 1 drp Tramadol HCl (Ultram) 50 mg PO Q6H PRN PRN Reason: Moderate Pain (4-6) Last Admin: 11/17/17 08:04 Dose: 50 mg
[2017-11-17] MEDS: Calcium Carbonate 500 MG ChewTAB PO PRN (19:19)
[2017-11-17] MEDS ORDERED: Sodium Ferric Gluconate 250 MG in Sodium Chloride 0.9% 100 ML IVPB SCH (20:00)
[2017-11-17] MEDS: Senokot S 8.6-50 MG TAB PO SCH (21:31)
[2017-11-17] MEDS: Sodium Ferric Gluconate 250 MG in Sodium Chloride 0.9% 100 ML IVPB SCH (21:32)
[2017-11-18] MEDS: Insulin Regular 300 UNITS/3 ML VIAL SC PRN ×3 (06:35→18:02)
[2017-11-18 06:49] LABS: Hemoglobin 8.9 g/dL (14.0-18.0); Hypochromia SLIGHT = 6-15 cells (100X) (0-5/hpf); Lymphocytes 7 % (21-51); MDiff Complete? YES; Mean Corpuscular HGB CONC 32.5 g/dL (32.0-36.0); Mean Corpuscular Hemoglobin 31.1 pg (27.0-31.0); Mean Corpuscular Volume 95.6 fL (78.0-98.0); Mean Platelet Volume 9.7 fL (7.4-10.4); Monocytes 7 % (0-10); Neutrophil 86 % (42-75); PLT Morphology Comment Appears Adequate; Platelet Count 223 thou/uL (130-400); Red Blood Cell (RBC) Count 2.86 mill/uL (4.70-6.10); White Blood Cell (WBC) Count 19.2 thou/uL (4.8-10.8)
[2017-11-18] MEDS ORDERED: Iron Dextran 500 MG in Sodium Chloride 0.9% 250 ML IVPB SCH (08:00)
--- NOTE | 2017-11-18 08:28 | PRG ---
DATE OF SERVICE: 11/18/2017 SUBJECTIVE: Mr. Johnson says he is going "stir crazy" wants to go home. His says his stomach "feels upset." He had bowel movements yesterday. His stomach feels better, but not back to normal he said. He is not having any chest pain. The patient did go in atrial fibrillation last night with control led ventricular response last night. PHYSICAL EXAMINATION: VITAL SIGNS: His blood pressure this morning 146/103 earlier 125/65, pulse 98 irregular, pulse is no w in the 80s on the monitor, it is atrial fibrillation. LUNGS: Clear. CARDIAC: Irregular. ABDOMEN: Soft, nontender. EXTREMITIES: There is no significant clubbing, cyanosis or edema. ASSESSMENT: 1. Status post non-ST elevation infarction, probably demand ischemia. 2. Atrial fibrillation. 3. Anemia, some degree of iron deficiency. PLAN: 1. We will have to resume anticoagulation. 2. Start low dose amiodarone. 3. Check complete blood count tomorrow. 4. If he is still in fibrillation tomorrow we will probably need to cardiovert, may not be able to a nticoagulate long-term due to the anemia.
[2017-11-18] MEDS: Polyethylene Glycol 3350 17 GM Packet PO SCH (09:51)
[2017-11-18] MEDS: Enoxaparin Sodium 120 MG/0.8 ML SYRINGE SC SCH ×2 (09:51→20:31)
[2017-11-18] MEDS: Famotidine 20 MG TAB PO SCH (09:52)
[2017-11-18] MEDS: metFORMIN 500 MG TAB PO SCH ×2 (09:52→18:02)
[2017-11-18] MEDS: Senokot S 8.6-50 MG TAB PO SCH ×2 (09:52→20:30)
[2017-11-18] MEDS: Atorvastatin Calcium 40 MG TAB PO SCH (09:52)
[2017-11-18] MEDS: Cefdinir 300 MG CAP PO SCH ×2 (09:52→20:30)
[2017-11-18] MEDS: Carvedilol 3.125 MG TAB PO SCH ×2 (09:52→20:29)
[2017-11-18] MEDS: Amiodarone 200 MG TAB PO SCH ×3 (09:53→20:30)
[2017-11-18] MEDS: Lisinopril 5 MG TAB PO SCH ×2 (09:53→20:31)
[2017-11-18] MEDS: Tamsulosin HCl 0.4 MG CAP PO SCH (09:54)
[2017-11-18] MEDS: Timolol 0.5% Ophth Soln 5 ml Bottle EA EYE SCH (09:54)
[2017-11-18] MEDS ORDERED: Sodium Ferric Gluconate 250 MG in Sodium Chloride 0.9% 100 ML IVPB SCH (11:00)
[2017-11-18] MEDS: Sodium Ferric Gluconate 250 MG in Sodium Chloride 0.9% 100 ML IVPB SCH (12:10)
[2017-11-18] MEDS: Senokot 8.6 MG TAB PO PRN (14:13)
--- NOTE | 2017-11-18 19:02 | PDOC.PN ---
- Subjective Encounter Start Date: 11/18/17 Encounter Start Time: 12:00 Patient seen and examined for NSTEMI. Developed Afib - started Amiodarone. Also had dark stool yesterday. No other complaints. No overnight events - Objective Resuscitation Status: Resuscitation Status FULL:Full Resuscitation MAR Reviewed: Yes Vital Signs & Weight: Vital Signs (12 hours) Temp Pulse Pulse Pulse Resp BP BP 11/18/17 15:57 99.1 F 80 20 11/18/17 12:00 98.9 F 82 20 11/18/17 11:07 84 66 124/57 L 11/18/17 09:54 98 146/103 H 11/18/17 09:53 98 146/103 H 11/18/17 09:29 98 20 146/103 H 11/18/17 07:50 98.1 F 98 20 BP BP Pulse Ox 11/18/17 15:57 132/74 94 L 11/18/17 12:00 95/64 98 11/18/17 11:07 108/63 11/18/17 09:54 98 11/18/17 09:53 11/18/17 09:29 11/18/17 07:50 146/103 H 99 Weight Admit Weight 241 lb 1.6 oz Weight 241 lb 1.6 oz I&O: 11/17/17 11/18/17 11/19/17 06:59 06:59 06:59 Intake Total 460 1700 Balance 460 1700 Result Diagrams: 11/18/17 05:22 11/17/17 05:08 Additional Labs: Accuchecks 11/18/17 11/18/17 11/18/17 17:00 10:45 05:54 POC Glucose 216 H 279 H 204 H 11/18/17 11/17/17 02:30 20:14 POC Glucose 210 H 261 H EKG Reviewed by me: Yes (Tele Afib) Phys Exam - Physical Examination Constitutional: NAD Respiratory: no wheezing, no rhonchi Cardiovascular: no rub, irregular Gastrointestinal: soft, non-tender, positive bowel sounds Musculoskeletal: no edema Neurological: moves all 4 limbs Dx/Plan - Plan DVT proph w/SCDs IMPRESSION: 1. Non-ST elevation myocardial infarction. s/p Cath 2. Acute kidney injury on chronic kidney disease stage 2. 3. Coronary artery disease, status post stent placement in the past. 4. Newly diagnosed diabetes mellitus type 2. on Sliding scale 5. New onset Afib 6. Dark stool - r/o GI bleeding 7. Moderate protein calorie malnutrition. 8. Hyperkalemia, probably secondary to acute kidney injury. resolved 9. Hyponatremia. 10. Diverticulosis. 11. Leucocytosis - unlikely to be infectious. 12. Chronic anemia, normochromic normocytic. 13. History of prostate cancer. 14. Dyslipidemia. 15. Venous insufficiency. 16. Glaucoma/Suspected obstructive sleep apnea/Obesity with a body mass index of 36.7/Constipation PLAN: Starte on Amiodarone with anticoag Stool for occult blood - Change Pepcid to PPI AM labs Cont ASA/Coreg/Statins/ACEI Echo - normal EF Cont Metformin Treat constipation CBC/BMP in AM Review of Systems - Review of Systems Respiratory: negative: Cough, Dry, Shortness of Breath, Hemoptysis, SOB with Excertion, Pleuritic Pain, Sputum, Wheezing Cardiovascular: negative: chest pain, palpitations, orthopnea, paroxysmal nocturnal dyspnea, edema, light headedness, other Gastrointestinal: Constipation. negative: Nausea, Vomiting, Abdominal Pain, Diarrhea, Melena, Hematochezia, Other - Medications/Allergies Allergies/Adverse Reactions: Allergies Allergy/AdvReac Type Severity Reaction Status Date / Time fluorescein Allergy Verified 11/15/17 05:04 hydrocodone Allergy Verified 11/15/17 05:03 Penicillins Allergy Verified 11/15/17 05:03 Medications: Current Medications Acetaminophen (Tylenol) 650 mg PO Q4H PRN PRN Reason: Headache/Fever or Pain Last Admin: 11/16/17 14:02 Dose: 650 mg Al Hydroxide/Mg Hydroxide (Maalox) 30 ml PO Q6H PRN PRN Reason: Heartburn or Indigestion Amiodarone HCl (Cordarone) 200 mg PO TID [facility] Last Admin: 11/18/17 14:56 Dose: 200 mg Aspirin (Aspirin Chewable) 81 mg PO DAILY [facility] Last Admin: 11/18/17 09:53 Dose: 81 mg Atorvastatin Calcium (Lipitor) 40 mg PO DAILY [facility] Last Admin: 11/18/17 09:52 Dose: 40 mg Bisacodyl (Dulcolax) 10 mg [place] DAILYPRN PRN PRN Reason: Constipation Last Admin: 11/17/17 11:56 Dose: 10 mg Calcium Carbonate (Tums) 1,000 mg PO Q4H PRN PRN Reason: Heartburn or Indigestion Last Admin: 11/17/17 19:19 Dose: 1,000 mg Carvedilol (Coreg) 6.25 mg PO BID [facility] Last Admin: 11/18/17 09:52 Dose: 6.25 mg Cefdinir (Omnicef) 300 mg PO BID [facility] Last Admin: 11/18/17 09:52 Dose: 300 mg Dextrose/Water (Dextrose 50%) 25 gm SLOW IVP PRN PRN PRN Reason: Hypoglycemia Enoxaparin Sodium (Lovenox) 120 mg SC 0900,2099 [facility] Last Admin: 11/18/17 09:51 Dose: 120 mg Famotidine (Pepcid) 20 mg PO BID [facility] Last Admin: 11/18/17 09:52 Dose: 20 mg Glucagon (Glucagon) 1 mg IM PRN PRN PRN Reason: Hypoglycemia Dextrose/Water (D5w) 1,000 mls @ 0 mls/hr IV .Q0M PRN PRN Reason: Hypoglycemia Sodium Chloride (Normal Saline 0.9%) 200 mls @ 0 mls/hr IV ONE PRN PRN Reason: Bolus PRN SBP < 90 mm Hg Stop: 11/19/17 09:31 Insulin Human Regular (Humulin R) 0 units SC .MILD SLIDING SCALE PRN PRN Reason: Mild Correctional Scale Last Admin: 11/18/17 18:02 Dose: 3 unit Insulin Human Regular (Humulin R) 0 units SC .BEDTIME SLIDING SC PRN PRN Reason: Bedtime Correctional Scale Last Admin: 11/17/17 21:39 Dose: 3 unit Lisinopril (Zestril) 5 mg PO BID [facility] Last Admin: 11/18/17 09:53 Dose: 5 mg Metformin HCl (Glucophage) 500 mg PO BID[facility] Last Admin: 11/18/17 18:02 Dose: 500 mg Nitroglycerin (Nitrostat) 0.4 mg SL Q5MIN PRN PRN Reason: Chest Pain Ondansetron HCl (Zofran Odt) 4 mg PO Q6H PRN PRN Reason: Nausea/Vomiting Ondansetron HCl (Zofran) 4 mg IVP Q6H PRN PRN Reason: Nausea/Vomiting Last Admin: 11/17/17 12:01 Dose: 4 mg Polyethylene Glycol (Miralax) 17 gm PO DAILY [facility] Last Admin: 11/18/17 09:51 Dose: 17 gm Senna (Senokot) 2 tab PO HSPRN PRN PRN Reason: Constipation Last Admin: 11/18/17 14:13 Dose: 2 tab Senna/Docusate Sodium (Senokot S) 2 tab PO BID [facility] Last Admin: 11/18/17 09:52 Dose: 2 tab Sodium Biphosphate/Sodium Phosphate (Fleet Enema) 133 ml [place] DAILY PRN PRN Reason: Constipation Sodium Chloride (Flush - Normal Saline) 10 ml IVF Q12HR [facility] Last Admin: 11/18/17 09:54 Dose: 10 ml Sodium Chloride (Flush - Normal Saline) 10 ml IVF PRN PRN PRN Reason: Saline Flush Tamsulosin HCl (Flomax) 0.4 mg PO DAILY [facility] Last Admin: 11/18/17 09:54 Dose: 0.4 mg Timolol Maleate (Timoptic 0.5% [facility]) 1 drop EA EYE DAILY [facility] Last Admin: 11/18/17 09:54 Dose: 1 drp Tramadol HCl (Ultram) 50 mg PO Q6H PRN PRN Reason: Moderate Pain (4-6) Last Admin: 11/17/17 19:18 Dose: 50 mg
[2017-11-19] MEDS ORDERED: Temazepam 15 MG CAP PO SCH (01:45)
[2017-11-19 05:54] LABS: Anion Gap 10 mmol/L (10-20); BUN (Urea Nitrogen) 30 mg/dL (8.4-25.7); Calc. Creatinine Clearance 79 mL/min (70-130); Calcium 8.3 mg/dL (7.8-10.44); Carbon Dioxide 27 mmol/L (23-31); Chloride 101 mmol/L (98-107); Estimated GFR-MDRD 66; Glucose 165 mg/dL (83-110); Potassium 4.2 mmol/L (3.5-5.1); Sodium 134 mmol/L (136-145)
[2017-11-19 06:09] LABS: Band 19 % (5-11); Hemoglobin 8.5 g/dL (14.0-18.0); Lymphocytes 15 % (21-51); MDiff Complete? YES; Mean Corpuscular HGB CONC 32.6 g/dL (32.0-36.0); Mean Corpuscular Hemoglobin 30.8 pg (27.0-31.0); Mean Corpuscular Volume 94.5 fL (78.0-98.0); Mean Platelet Volume 9.4 fL (7.4-10.4); Metamyelocyte 3 % (0-0); Monocytes 7 % (0-10); Neutrophil 56 % (42-75); PLT Morphology Comment Appears Adequate; Platelet Count 238 thou/uL (130-400); RBC Distribution Width 14.1 % (11.5-14.5); Red Blood Cell (RBC) Count 2.75 mill/uL (4.70-6.10); White Blood Cell (WBC) Count 17.1 thou/uL (4.8-10.8)
[2017-11-19] MEDS ORDERED: Labetalol HCl 100 MG/20 ML VIAL IVPB PRN (08:05)
[2017-11-19 08:24] LABS: CRP (Inflammatory) Less than 0.50 mg/dL (= or < 0.5); Lipase 25 U/L (8-78)
[2017-11-19 08:25] LABS: ALT (SGPT) 29 U/L (8-55); AST (SGOT) 22 U/L (5-34); Albumin 3.4 g/dL (3.4-4.8); Alkaline Phosphatase 62 U/L (40-150); Bilirubin, Direct 0.2 mg/dL (0.1-0.3); Bilirubin, Total 0.5 mg/dL (0.2-1.2); Protein, Total 5.3 g/dL (5.8-8.1)
[2017-11-19] MEDS ORDERED: Albuterol Sulfate 2.5 mg/3 ml Neb NEB SCH (09:00)
[2017-11-19] MEDS ORDERED: Albuterol Sulfate 1.25 MG/3 ML NEB ONE (09:01)
[2017-11-19] MEDS ORDERED: PROPOFOL 20 ML ONE (09:17)
[2017-11-19] MEDS ORDERED: Clopidogrel Bisulfate 75 MG TAB ONE (09:17)
[2017-11-19] MEDS ORDERED: Lisinopril 10 MG TAB ONE (09:17)
[2017-11-19] MEDS ORDERED: Atropine Sulfate 1 mg/10 ml Syringe ONE (09:19)
--- NOTE | 2017-11-19 10:00 | PRG ---
DATE OF SERVICE: 11/19/2017 SUBJECTIVE: Mr. Johnson still is having abdominal discomfort, not having chest pain or pressure. PHYSICAL EXAMINATION: VITAL SIGNS: His blood pressure was 142/94 followed by 180/108. Pulse, this morning it was irregula r prior to the cardioversion, now it is regular. LUNGS: Clear. CARDIAC: Previously irregular, now it is regular. ABDOMEN: Obese, nontender. EXTREMITIES: Mild edema. ASSESSMENT: 1. Atrial fibrillation. He was successfully cardioverted. 2. Coronary artery disease, stable. It looks like he has a chronically occluded right coronary fill ing via collaterals from the left. 3. Anemia, appears to be iron deficiency. 4. Atrial fibrillation, status post cardioversion. 5. Abdominal pain being evaluated by hospitalist. PLAN: 1. Continue enoxaparin. May have to stop if the blood counts drop. 2. The abdominal discomfort is being investigated.
--- NOTE | 2017-11-19 11:04 | OP ---
DATE OF PROCEDURE: 11/19/2017 PROCEDURE: Cardioversion. Mr. Johnson was brought to the post-cath area in the fasting state. He was sedated intravenously. He was given 200 joules direct current energy and converted to sinus rhythm with premature atrial contr actions. Prior to the cardioversion, he was in atrial fibrillation with a ventricular response of ap proximately 75-80 beats per minute. CONCLUSION: Successful cardioversion. Indication was persistent atrial fibrillation and successful cardioversion.
[2017-11-19] MEDS: Timolol 0.5% Ophth Soln 5 ml Bottle EA EYE SCH (11:50)
[2017-11-19] MEDS: Senokot S 8.6-50 MG TAB PO SCH ×2 (11:51→21:28)
[2017-11-19] MEDS: Enoxaparin Sodium 120 MG/0.8 ML SYRINGE SC SCH (11:51)
[2017-11-19] MEDS: Carvedilol 3.125 MG TAB PO SCH ×2 (11:52→21:28)
[2017-11-19] MEDS: Tamsulosin HCl 0.4 MG CAP PO SCH (11:52)
[2017-11-19] MEDS: Atorvastatin Calcium 40 MG TAB PO SCH (11:52)
[2017-11-19] MEDS: Lisinopril 5 MG TAB PO SCH ×2 (11:53→21:28)
[2017-11-19] MEDS: Polyethylene Glycol 3350 17 GM Packet PO SCH (11:59)
[2017-11-19] MEDS ORDERED: Iopamidol 370 76% 100 ML VIAL ONE (12:01)
[2017-11-19] MEDS: Cefdinir 300 MG CAP PO SCH (13:11)
[2017-11-19] MEDS: Amiodarone 200 MG TAB PO SCH ×2 (13:11→21:28)
[2017-11-19] MEDS: metFORMIN 500 MG TAB PO SCH (13:11)
[2017-11-19] MEDS: cefTRIAXone\\ROCEPHIN 1 GM in Sodium Chloride 0.9% 100 ML IVPB SCH (13:37)
--- NOTE | 2017-11-19 13:57 | CT ---
CONTRAST ENHANCED CT ABDOMEN AND PELVIS: HISTORY: Leukocytosis. Bandemia. TECHNIQUE: Contrast enhanced CT images of the abdomen and pelvis are obtained after the administration of IV and oral contrast. FINDINGS: The lung bases demonstrate small bilateral pleural effusions and some patchy bibasilar areas of atele ctasis in the lung bases. The heart demonstrates mitral annular calcifications and some coronary artery calcifications. The liver is unremarkable with no evidence of masses or lesions. There is diffuse enhancement of the gallbladder. There is extensive fat stranding surrounding the ga llbladder, concerning for an inflammatory process and possible cholecystitis. The common bile duct is of normal size. The spleen is unremarkable, except for some splenic calcifications, compatible with previous granulom atous disease. The pancreas is unremarkable. The adrenal glands and kidneys are unremarkable. A normal appendix is visualized. The small bowel is unremarkable. No definite evidence of colonic lesions seen. A moderate sized umbilical hernia is seen with herniation of intraperitoneal fat through the hernial defect. IMPRESSION: Abnormal inflammatory change and enhancement of the gallbladder. This is concerning for acute cholec ystitis. Findings called to Dr. Peterson at 12:33 p.m. on 11/19/2017. CODE CR POS: [facility]
[2017-11-19] MEDS: metroNIDAZOLE 500 MG in Premix Bag 1 BAG IVPB SCH ×2 (14:43→21:29)
[2017-11-19] MEDS ORDERED: PROPOFOL 200 MG/20 ML VIAL ONE (15:13)
--- NOTE | 2017-11-19 15:16 | ULT ---
GALLBLADDER ULTRASOUND: 11/19/17 HISTORY: Possible cholecystitis on CT. COMPARISON: None. TECHNIQUE: Utilizing a multihertz transducer, sonographic imaging of the right upper quadrant is performed in th e longitudinal and transverse plane. FINDINGS: The visualized head of the pancreas has a normal echotexture. The remainder of the pancreas is obscur ed by bowel gas. Main portal vein is patent. Appropriate directional flow. Liver has an appropriate echotexture. No hepatic masses or intrahepatic biliary dilatation. Right hep atic lobe measures 14.6 cm. Gallbladder wall is thickened. There is pericholecystic fluid. Sonographe r does not report a positive Moss's sign. Common bile duct diameter is 0.3 cm. No sonographic evidence of cholelithiasis. RIGHT KIDNEY: No hydronephrosis, with a maximum diameter of 10.9 cm. IMPRESSION: Limited evaluation by body habitus. There is gallbladder wall thickening and pericholecystic fluid wi thout evidence of cholelithiasis. Correlate for possible chronic cholecystitis versus acalculous chol ecystitis. Consider HIDA scan. POS: [facility]
[2017-11-19] MEDS ORDERED: Fentanyl 100 MCG/2 ML VIAL SLOW IVP PRN (17:36)
[2017-11-19] MEDS: Acetaminophen 325 MG TAB PO PRN ×2 (17:39→23:24)
[2017-11-19] MEDS: traMADol HCl 50 MG TAB PO PRN (17:39)
--- NOTE | 2017-11-19 19:03 | PRG ---
DATE OF SERVICE: 11/19/2017 DATE OF ADMISSION: 11/15/2017 BRIEF HOSPITAL COURSE: Patient is an 87-year-old male with coronary artery disease, status post sten t, hypertension, hyperlipidemia, and suspected obstructive sleep apnea, presented to the hospital on 11/15/2017 with chest discomfort. He also was short of breath and had diaphoresis. His workup on ad mission was consistent with non-ST elevation [place]. He also had leukocytosis; however, his repeat chest x-ray was negative for infiltrate. Echocardiogram showed ejection fraction 55%-60%. Cardiac cathet erization was performed by Dr. Smiley on the that showed 2-vessel coronary artery disease. Ther e was 100% RCA lesion which is filling via collaterals. There was 80% diagonal lesion. Medical ther apy was recommended. The patient converted to atrial fibrillation for which he was started on amiodarone oral loading. He underwent cardioversion this morning, which was successful. Due to persistent leukocytosis as well as 19% bandemia this morning, the patient underwent a CT scan of the abdomen and pelvis. SUBJECTIVE: The patient feels better after cardioversion. He persistently has generalized abdominal discomfort without any point tenderness. He denies any nausea or vomiting. No chest pain, shortnes s of breath reported. Patient continues to have on and off black stools. CURRENT MEDICATIONS: Reviewed. The patient has been started on ceftriaxone and Flagyl. He also is on amiodarone loading. OBJECTIVE: VITAL SIGNS: Temperature 97.6, pulse rate of 87, respiration of 18, blood pressure 162/84 with O2 sa turation 92% on room air. Intake of 1700, output not documented. Weight unavailable. GENERAL: An 87-year-old male, in no apparent distress. Still has some discomfort in the abdomen whi ch is generalized. NECK: Supple, no JVD. LUNGS: Essentially clear to auscultation bilaterally with scattered rhonchi. HEART: S1, S2 present. Regular rate and rhythm. No rubs or gallops. ABDOMEN: Soft, obese, bowel sounds present. Mild generalized tenderness, without any rebound or gua rding. EXTREMITIES: No edema or calf tenderness. LABORATORY FINDINGS: 1. WBC 17.1 with 19% bandemia. 2. LFTs in normal range. Lipase 25, BUN 30, creatinine 1.06, sodium 134. Stool for occult blood wa s positive. 3. Telemetry by my review showed sinus rhythm. CT scan of the abdomen and pelvis showed questionabl e acute cholecystitis. Appendix was normal. 4. Right upper quadrant ultrasound showed gallbladder wall thickening and pericholecystic fluid with out evidence of cholelithiasis. Possibilities include chronic cholecystitis versus acalculous cholec ystitis. IMPRESSION: 1. Non-ST elevation myocardial infarction on admission, requiring cardiac catheterization. 2. New onset of atrial fibrillation requiring cardioversion this morning. 3. New diagnosis of cholecystitis today. 4. New diagnosis of diabetes mellitus type 2 this admission with A1c of 7.3. 5. History of coronary artery disease, status post stent placement. 6. Acute kidney injury on chronic kidney disease stage 2, resolved. 7. Hemoccult positive stool. 8. Other diagnosis per previous notes. PLAN: The patient will be kept n.p.o. Antibiotics have been initiated. I have contacted Dr. Jimmy teague. I also discussed with Dr. Smiley, who is okay with General anesthetics if needed. Right upper qu adrant ultrasound has been done. HIDA scan per GI/general surgery. We will also consult Gastroenter ology for positive Hemoccult blood. We will hold anticoagulation for now due to possible surgical in tervention. He received a dose of Lovenox today. We will repeat labs in a.m. Plan of and care was discussed with the patient in detail. He stated understanding.
[2017-11-19] MEDS: Melatonin 3 MG TAB PO PRN (21:28)
[2017-11-19] MEDS: Saccharomyces boulardii 250 MG CAP PO SCH (21:28)
--- NOTE | 2017-11-19 23:02 | CON ---
DATE OF CONSULTATION: 11/19/2017 CHIEF COMPLAINT: Abdominal pain. HISTORY OF PRESENT ILLNESS: Mr. Johnson is an 87-year-old man who was admitted to the hospital on with chest discomfort. He was noted to have mildly elevated troponins and ultimately underwe nt cardiac catheterization that showed coronary artery disease. He was noted to have diastolic dysfu nction and then developed atrial fibrillation and underwent cardioversion today. He has been complai kathleen of upper to periumbilical abdominal pain, which is diffuse aching and comes with severity severa l times per hour and last a few times per minute. He has had nausea when the pain comes on. He did eat last night, which was associated with some worsening of the discomfort then. He was incidentally also noted to have severe anemia, hemoglobin is ranging in the 8.5 to 9.9 range. MCV has been ria l. His iron studies show normal iron, normal ferritin, and low TIBC. He has had no overt gastrointe stinal blood loss. He had a colonoscopy back around 2010 with a couple of polyps removed that was do ne by Dr. Perdomo in [place]. He has had a small bowel movement today. PAST MEDICAL HISTORY: Coronary artery disease with history of prior stent, hypertension, hyperlipide raghav, glaucoma, prostate cancer treated with radiation and hormone therapy, diverticulosis, macular de generation, arthritis. PAST SURGICAL HISTORY: Knee surgery, cataract surgery, basal cell carcinoma resection decades ago, c olonoscopy. FAMILY HISTORY: His mother had colon cancer. SOCIAL HISTORY: No alcohol, tobacco, or drugs. He did smoke in the past. ALLERGIES: HYDROCODONE, PENICILLIN. MEDICATIONS: Prior to admission included aspirin, amlodipine, Lipitor, carvedilol, Lasix, lisinopril , Flomax, magnesium, and timolol eye drops. He also reports taking ibuprofen around once per week fo r knee pain. Here in the hospital, he is on amiodarone, aspirin, atorvastatin, carvedilol, ceftriaxo ne, labetalol, lisinopril, metronidazole, pantoprazole, Florastor, Flomax, timolol eye drops, tramado l as needed. REVIEW OF SYSTEMS: Negative x10 systems reviewed except as stated in history of present illness. PHYSICAL EXAMINATION: VITAL SIGNS: Temperature 97.4, pulse 80, blood pressure 162/84. GENERAL: He is in no acute distress. EYES: Have no scleral icterus. OROPHARYNX: Clear without lesions. He is obese. He has a thick neck, certainly looks acute be a ri sk for sleep apnea. He has no cervical or supraclavicular lymphadenopathy. LUNGS: Clear to auscultation bilaterally. HEART: Regular rate and rhythm. ABDOMEN: Soft, it is somewhat distended. His bowel sounds are present. His tenderness somewhat dif fusely in the upper abdomen without guarding. Bowel sounds are present. EXTREMITIES: No lower extremity edema. LABORATORY DATA: Creatinine 1.06, bilirubin 0.5, AST 22, ALT 29, alkaline phosphatase 62, albumin 3. 4, lipase 25. Hemoglobin 8.5, white blood cell count 17.1, platelets 238. CT scan of the abdomen an d pelvis from this morning shows inflammatory changes and thickening around the gallbladder concernin g for acute cholecystitis. Ultrasound was performed follow that up; however, it was limited by body habitus. There was gallbladder wall thickening and pericholecystic fluid noted. IMPRESSION: 1. Diffuse upper abdominal pain with nausea and abdominal distention. The pain has been severe at t imes and comes and goes several times per hour. The CT scan certainly concerning for acute cholecyst itis. 2. Anemia. He has iron studies suggestive of source other than iron deficiency given his normal jody ritin, normal iron, and low TIBC. He does have a history of colon polyps removed in 2010. His mothe r had colon cancer. He has had no overt GI bleeding. He does take ibuprofen occasionally and has be en on aspirin. RECOMMENDATIONS: 1. He is on appropriate antibiotics with ceftriaxone and metronidazole. 2. General Surgery consultation. Ultimately, if he is not an adequate surgical candidate, then chol ecystostomy tube could be considered. 3. Proton pump inhibitor.
[2017-11-20] MEDS: traMADol HCl 50 MG TAB PO PRN (01:03)
[2017-11-20 05:15] LABS: ALT (SGPT) 26 U/L (8-55); AST (SGOT) 17 U/L (5-34); Albumin 3.3 g/dL (3.4-4.8); Alkaline Phosphatase 61 U/L (40-150); Anion Gap 7 mmol/L (10-20); BUN (Urea Nitrogen) 29 mg/dL (8.4-25.7); Bilirubin, Total 0.6 mg/dL (0.2-1.2); Calc. Creatinine Clearance 89 mL/min (70-130); Calcium 8.2 mg/dL (7.8-10.44); Carbon Dioxide 29 mmol/L (23-31); Chloride 102 mmol/L (98-107); Estimated GFR-MDRD 76; Globulin 1.9 g/dL (2.4-3.5); Glucose 153 mg/dL (83-110); Magnesium 2.3 mg/dL (1.6-2.6); Protein, Total 5.2 g/dL (5.8-8.1); Sodium 134 mmol/L (136-145)
[2017-11-20] MEDS: metroNIDAZOLE 500 MG in Premix Bag 1 BAG IVPB SCH ×3 (05:19→20:54)
[2017-11-20 05:38] LABS: Band 1 % (5-11); Eosinophils 2 % (0-10); Hemoglobin 7.9 g/dL (14.0-18.0); Hypochromia SLIGHT = 6-15 cells (100X) (0-5/hpf); Lymphocytes 6 % (21-51); MDiff Complete? YES; Mean Corpuscular HGB CONC 32.8 g/dL (32.0-36.0); Mean Corpuscular Hemoglobin 31.2 pg (27.0-31.0); Mean Corpuscular Volume 95.1 fL (78.0-98.0); Mean Platelet Volume 9.3 fL (7.4-10.4); Monocytes 3 % (0-10); Neutrophil 88 % (42-75); Nucleated RBC 2 % (0); PLT Morphology Comment Appears Adequate; Platelet Count 235 thou/uL (130-400); RBC Distribution Width 14.4 % (11.5-14.5); Red Blood Cell (RBC) Count 2.53 mill/uL (4.70-6.10); White Blood Cell (WBC) Count 18.9 thou/uL (4.8-10.8)
--- NOTE | 2017-11-20 09:21 | PDOC.GSPN ---
Surgery Progress Note: Subj - Subjective Narrative: See note in chart. Pt wants to try non-op tx cholecystitis. OK to resume lovenox , diet. US ordered to eval for stones vs acalculous disease. Will follow. OR if sxs worsen. Surgery Progress Note: Obj - Vital signs Vital signs: Vital Signs - Most Recent Temp Pulse Resp BP Pulse Ox 98.5 F 80 16 147/91 H 92 L 11/20/17 08:00 11/20/17 08:00 11/20/17 08:00 11/20/17 08:00 11/20/17 08:00 Surgery Progress Note: Results - Labs Result Diagrams: 11/20/17 04:36 11/20/17 04:36 Lab results: Laboratory Results - last 24 hr 11/19/17 11/20/17 11/20/17 20:47 04:32 04:36 WBC 18.9 H RBC 2.53 L Hgb 7.9 L Hct 24.1 L MCV 95.1 MCH 31.2 H MCHC 32.8 RDW 14.4 Plt Count 235 MPV 9.3 Neutrophils % (Manual) 88 H Band Neuts % (Manual) 1 L Lymphocytes % (Manual) 6 L Monocytes % (Manual) 3 Eosinophils % (Manual) 2 Nucleated RBCs # (Man) 2 H Hypochromia SLIGHT = 6-15 cells Plt Morphology Comment Appears Adequate Sodium Potassium Chloride Carbon Dioxide Anion Gap BUN Creatinine Estimated GFR (MDRD) Glucose POC Glucose 184 H 171 H Calcium Magnesium Total Bilirubin AST ALT Alkaline Phosphatase Serum Total Protein Albumin Globulin Albumin/Globulin Ratio 11/20/17 11/20/17 04:36 05:31 WBC RBC Hgb Hct MCV MCH MCHC RDW Plt Count MPV Neutrophils % (Manual) Band Neuts % (Manual) Lymphocytes % (Manual) Monocytes % (Manual) Eosinophils % (Manual) Nucleated RBCs # (Man) Hypochromia Plt Morphology Comment Sodium 134 L Potassium 4.0 Chloride 102 Carbon Dioxide 29 Anion Gap 7 L BUN 29 H Creatinine 0.94 Estimated GFR (MDRD) 76 Glucose 153 H POC Glucose 155 H Calcium 8.2 Magnesium 2.3 Total Bilirubin 0.6 AST 17 ALT 26 Alkaline Phosphatase 61 Serum Total Protein 5.2 L Albumin 3.3 L Globulin 1.9 L Albumin/Globulin Ratio 1.7
[2017-11-20] MEDS: Carvedilol 3.125 MG TAB PO SCH ×2 (11:05→21:01)
[2017-11-20] MEDS: Senokot S 8.6-50 MG TAB PO SCH ×2 (11:05→21:01)
[2017-11-20] MEDS: Tamsulosin HCl 0.4 MG CAP PO SCH (11:06)
[2017-11-20] MEDS: Lisinopril 5 MG TAB PO SCH ×2 (11:06→21:00)
[2017-11-20] MEDS: Amiodarone 200 MG TAB PO SCH ×2 (11:06→21:00)
[2017-11-20] MEDS: Atorvastatin Calcium 40 MG TAB PO SCH (11:07)
[2017-11-20] MEDS: Timolol 0.5% Ophth Soln 5 ml Bottle EA EYE SCH (11:07)
--- NOTE | 2017-11-20 11:45 | CON ---
DATE OF CONSULTATION: 11/20/2017 REASON FOR CONSULT: Cholecystitis. HISTORY OF PRESENT ILLNESS: Mr. Johnson is an 87-year-old man who was admitted to the hospital with a non-ST elevation AK. Recently, he underwent heart catheterization and no stent or angioplasty was p erformed. He did have RCA occlusion filling through collaterals. Since that time, the pain that he was having in his chest and shoulders has resolved. He states that around the same time that he deve loped his heart problems, he also developed what he describes as indigestion pain in his abdomen with nausea. This persisted after his heart catheterization and cardioversion, so a CT was performed, wh ich showed significant inflammation around his gallbladder. The patient states that he has not eaten for 2 days, but back when he was eating, he did not notice any difference in his pain related to eat ing. The pain that he experiences is somewhat diffuse, but the tenderness in his abdomen is in the r ight upper quadrant. He states he still has occasional nausea when he changes position, but other th an that, he is not having any pain at this time. PAST MEDICAL HISTORY: Coronary artery disease status post AK twice in the past. He had angioplasty for his first AK and angioplasty and stenting for his second AK. He has a history of prostate cancer , hypertension, hyperlipidemia, prediabetes, basal cell carcinoma, macular degeneration and colonic d iverticula. Atrial fibrillation, cardioverted during this admission. PAST SURGICAL HISTORY: Angioplasty and stent in the past, angiography without stenting during this a dmission and cardioversion. He has also had back surgery, knee surgery, cataract surgery and colonos copy with removal of some polyps. ALLERGIES: He reports allergies or adverse drug reactions to PENICILLIN, which caused itching; HYDRO CODONE, which made it hard for him to sleep; FLUORESCEIN and also BETADINE, which caused itching. OUTPATIENT MEDICATIONS: Include aspirin, amlodipine, sublingual nitroglycerin, Lipitor, carvedilol, Lasix, lisinopril, magnesium oxide, Flomax and timolol eyedrops. INPATIENT MEDICATIONS: Include amiodarone, aspirin, atorvastatin, carvedilol, ceftriaxone started ye sterday, sliding scale insulin, lisinopril, Flagyl started yesterday, Protonix, Florastor, Senokot, F deloris, timolol eyedrops and multiple p.r.n. He was also on therapeutic dose Lovenox receiving his la st dose yesterday around noon. REVIEW OF SYSTEMS: Ten system review of systems is negative except per HPI. When he was having his chest and shoulder pain, he was also diaphoretic, but has not had any episodes of sweating, chills or fevers since his admission. He does have some chronic dyspnea on exertion. FAMILY HISTORY: Noncontributory. PHYSICAL EXAMINATION: VITAL SIGNS: The patient is afebrile since admission, heart rate 80, respirations 16, 92% saturated on room air with blood pressure of 147/91. GENERAL: Reveals an obese elderly man, in no acute distress. He does have central obesity with a pr otuberant abdomen. HEENT: Unremarkable. NECK: Short, but without lymphadenopathy or palpable thyroid nodules. HEART: Regular in its rate and rhythm without murmurs, rubs or gallops. LUNGS: Clear to auscultation bilaterally. He does not have any pain with deep inspiration. ABDOMEN: Soft, protuberant, but not tight or distended. He has an easily reducible umbilical hernia with about a 2 cm fascial defect. He is mildly tender to palpation in the right upper quadrant with out rigidity, rebound or guarding and is otherwise nontender to palpation. EXTREMITIES: Cool, but with normal capillary refill. He does not have any palpable pedal pulses, bu t does have popliteal pulses palpable. NEUROLOGIC: No focal deficits. PSYCHIATRIC: Alert, oriented and appropriate. LABORATORY DATA: White count is moderately elevated at 18. He does have a left shift of 88%. H and H are somewhat low at 7.9 and 24.1, but this is not much different from his last few H and Hs. Elec trolytes are unremarkable. Blood sugars have ranged from 153-223. LFTs are all normal and lipase wa s normal yesterday. IMAGING: CT showed significant inflammation around the gallbladder, but no other abnormalities. Ult rasound of the gallbladder did not show any stones, but did show wall thickening and pericholecystic fluid. Common bile duct was normal in diameter. ASSESSMENT AND PLAN: Acalculous cholecystitis. The patient was admitted with a non-ST elevation deb cardial infarction with troponins as high as 1.8, but no intervention on cardiac catheterization. Ia s computerized mill recorder feels he is an acceptable medical risk for a laparoscopic cholecystectomy. Options fo r treatments of his acalculous cholecystitis include laparoscopic cholecystectomy, medical treatment with antibiotics and observation or cholecystostomy drain placement. The gallbladder looks small on CT scans. I do not think that a cholecystostomy drain would be particularly helpful. So, options re ally include laparoscopic cholecystectomy or medical management with antibiotics. The risks and bene fits of both approaches were discussed with the patient and his family who are at the bedside. Risks of laparoscopic cholecystectomy include the typical operative risks of bleeding, infection, risks of anesthesia, damage to nearby structures including bowel, liver and bile duct, need for open surgery, need for other procedures. His medical risk is elevated somewhat due to his age, medical comorbidit ies and recent non-ST elevation myocardial infarction, but his computerized mill recorder feels like his risks are acceptable. Risks of medical management include failure to respond and worsening cholecystitis. The patient and his family wish to proceed with nonsurgical treatment at this time. He states that he i s feeling better and not having any pain and is hungry, so we will go ahead and start him on a clear liquid diet. If he tolerates that, advance to a low-fat diet. If he has worsening pain, nausea or v omiting with this, then we will reconsider surgery. I have told his nurse from a surgical standpoint , it is okay to resume his Lovenox since he has decided not to proceed with OR. Certainly, I do not anticipate that he would need an emergent procedure given his minimal tenderness on exam and stable v itals. If he does not respond to medical management, then we can hold his Lovenox and proceed with s urgshayan. I will continue to follow this patient as an inpatient.
--- NOTE | 2017-11-20 12:18 | PDOC.CTH ---
<Katina Nielsen - Last Filed: 11/20/17 12:16> Cardiology Progress Note - Subjective Patient without complaints. Has declined surgery for jewel. Plan for antibiotics only. Tele stable. - Objective Vital Signs Temp Pulse Resp BP Pulse Ox 11/20/17 11:48 99.2 F 84 16 96 11/20/17 11:07 80 11/20/17 11:06 80 11/20/17 08:00 98.5 F 80 16 147/91 H 92 L 11/20/17 04:00 99.1 F 48 L 20 145/81 H 93 L Admit Weight 241 lb 1.6 oz Weight 241 lb 1.6 oz 11/19/17 11/20/17 11/21/17 06:59 06:59 06:59 Intake Total 990 270 Balance 990 270 - Physical Examination General/Neuro: alert & oriented x3 Lungs: CTA Heart: RRR Abdomen: NT/ND - Telemetry Telemetry Rhythm: SR - Labs Result Diagrams: 11/20/17 04:36 11/20/17 04:36 Troponin/CKMB CK-MB (CK-2) 3.2 ng/mL (0-6.6) 11/14/17 23:47 Troponin I 1.201 ng/mL (< 0.028) H* 11/16/17 05:44 - Assessment/Plan 1. Acute cholecystitis 2. Anemia 3. s/p NSTEMi 4. AF s/p cardoversion 5. HTN 6. CAD Stable cardiac status, but now with declining Hgb. Recheck in AM. Hold Lovenox for now. <Dionisio Chowdary - Last Filed: 11/20/17 13:28> Cardiology Progress Note - Objective Vital Signs Temp Pulse Resp BP Pulse Ox 11/20/17 11:48 99.2 F 84 16 96 11/20/17 11:07 80 11/20/17 11:06 80 11/20/17 08:00 98.5 F 80 16 147/91 H 92 L 11/20/17 04:00 99.1 F 48 L 20 145/81 H 93 L Admit Weight 241 lb 1.6 oz Weight 241 lb 1.6 oz 11/19/17 11/20/17 11/21/17 06:59 06:59 06:59 Intake Total 990 270 Balance 990 270 - Labs Result Diagrams: 11/20/17 04:36 11/20/17 04:36 Troponin/CKMB CK-MB (CK-2) 3.2 ng/mL (0-6.6) 11/14/17 23:47 Troponin I 1.201 ng/mL (< 0.028) H* 11/16/17 05:44 - Assessment/Plan Pt seen and examined. Agree with above. Concerned about low Hb. No active bleeding. Continue with ACT for now and repeat Hb in am. Given one dose of lasix
--- NOTE | 2017-11-20 12:28 | PRG ---
DATE OF SERVICE: 11/20/2017 SUBJECTIVE: Mr. Johnson took some clear liquid diet this morning. He states after that his abdominal pain is completely resolved. OBJECTIVE: VITAL SIGNS: Temperature 99.2, pulse 84, blood pressure 147/91. GENERAL: He is in no acute distress. He is alert and oriented x3. His family is at the bedside. LUNGS: Clear to auscultation bilaterally. HEART: Regular rate and rhythm. ABDOMEN: Soft, nontender. He has an obese abdomen, but not acutely distended. His bowel sounds are present. EXTREMITIES: No lower extremity edema. LABORATORY DATA: White blood cell count 18.9, hemoglobin 7.9, platelets 235, creatinine 0.94. IMPRESSION: Apparent acalculous cholecystitis with significant inflammatory changes around the gallb ladder by CT scan. He discussed the risks and benefits of surgery with Dr. Gupta and ultimately he has decided against surgical management at this point. This morning he feels much better. His abdo katt pain is resolved. He has been on antibiotics. He is tolerating a clear liquid diet so far erin zavaleta RECOMMENDATIONS: 1. We will continue antibiotics and manage conservatively. 2. I did encourage him in the future as an outpatient to undergo a sleep evaluation for sleep apnea. His family is in agreement with this and he will discuss this with his primary care doctor.
--- NOTE | 2017-11-20 13:04 | PDOC.PN ---
- Subjective Encounter Start Date: 11/20/17 Encounter Start Time: 13:02 Mr. Johnson was seen today in follow-up of NSTEMI, and Cholecyctitis. He is sitting up in bed eating. He does not have any complaints. He denies abdominal pain, or nausea. He denies chest pain. He is asking to go home. - Objective Resuscitation Status: Resuscitation Status FULL:Full Resuscitation MAR Reviewed: Yes Vital Signs & Weight: Vital Signs (12 hours) Temp Pulse Resp BP Pulse Ox 11/20/17 11:48 99.2 F 84 16 96 11/20/17 11:07 80 11/20/17 11:06 80 11/20/17 08:00 98.5 F 80 16 147/91 H 92 L 11/20/17 04:00 99.1 F 48 L 20 145/81 H 93 L Weight Admit Weight 241 lb 1.6 oz Weight 241 lb 1.6 oz I&O: 11/19/17 11/20/17 11/21/17 06:59 06:59 06:59 Intake Total 990 270 Balance 990 270 Result Diagrams: 11/20/17 04:36 11/20/17 04:36 Additional Labs: Accuchecks 11/20/17 11/20/17 11/20/17 10:59 05:31 04:32 POC Glucose 163 H 155 H 171 H 11/19/17 11/19/17 20:47 16:28 POC Glucose 184 H 223 H Phys Exam - Physical Examination HEENT: PERRLA Respiratory: no wheezing, no rales + occasional rhonchi bilaterallt Cardiovascular: RRR, no significant murmur, no rub no gallop Gastrointestinal: soft, non-tender, no distention, positive bowel sounds Musculoskeletal: edema present trace pedal edema Neurological: non-focal Dx/Plan (1) NSTEMI (non-ST elevated myocardial infarction) Code(s): I21.4 - NON-ST ELEVATION (NSTEMI) MYOCARDIAL INFARCTION Status: Acute (2) Acute cholecystitis Code(s): K81.0 - ACUTE CHOLECYSTITIS Status: Acute (3) Atrial fibrillation Code(s): I48.91 - UNSPECIFIED ATRIAL FIBRILLATION Status: Acute (4) Obesity (BMI 30-39.9) Code(s): E66.9 - OBESITY, UNSPECIFIED Status: Chronic (5) Hypertension Code(s): I10 - ESSENTIAL (PRIMARY) HYPERTENSION Status: Chronic - Plan * NSTEMI- patient is s/p Cardiac Cath, and is being treated medically * AFIB- he is s/p cardioversion and is currently in sinus. Continue Amiodarone, and Lovenox, has been started- he will need to be switched over to an oral agent tomorrow if his H&H is stable * Acute cholecystitis- he has declined surgery, and is being treated medically. Continue Rocephin and Flagyl , IV- will re-evaluate his WBC count in the AM, and see how he does on a solid diet * Normocystic Anemia- ? cause- his iron level, are low but normal- he says he had a colonoscopy about 2 years ago, which was normal with exception of 2 polyps - discussed with the patient in detail- he will need to have this evaluated as an outpatient, he may also need to see a Filament Welder, as the Leukocytosis may also be chronic. He was given IV iron infusion * HTN.- Lisinopril has been re-introduced, at a lower dose, Amlodipine is on hold
[2017-11-20 14:26] LABS: Reticulocyte Count 8.6 % (0.5-1.5)
[2017-11-20] MEDS ORDERED: Furosemide 40 MG/4 ML VIAL SLOW IVP SCH (14:30)
--- NOTE | 2017-11-20 15:00 | RAD ---
PORTABLE AP CHEST XRAY: DATE: 11/20/17. HISTORY: Shortness of breath. COMPARISON: 11/14/17. FINDINGS: The cardiac silhouette is magnified by projection but does appear mildly enlarged. Pulmonary vascula ture is within normal limits. The lungs are clear. Vascular calcifications are again seen in the th oracic aorta and there are stable degenerative changes in the spine. IMPRESSION: 1. Cardiomegaly. 2. No acute cardiopulmonary process. POS: [facility]
[2017-11-20] MEDS: Senokot 8.6 MG TAB PO PRN (15:21)
[2017-11-20] MEDS: cefTRIAXone\\ROCEPHIN 1 GM in Sodium Chloride 0.9% 100 ML IVPB SCH ×2 (19:02→20:27)
[2017-11-20] MEDS: Insulin Regular 300 UNITS/3 ML VIAL SC PRN ×2 (19:03→21:16)
[2017-11-20] MEDS: Enoxaparin Sodium 120 MG/0.8 ML SYRINGE SC SCH (21:00)
[2017-11-20] MEDS: Saccharomyces boulardii 250 MG CAP PO SCH (21:01)
[2017-11-21] MEDS: metroNIDAZOLE 500 MG in Premix Bag 1 BAG IVPB SCH ×2 (04:41→12:56)
[2017-11-21 05:27] LABS: Band 13 % (5-11); Eosinophils 4 % (0-10); Hemoglobin 8.1 g/dL (14.0-18.0); Lymphocytes 14 % (21-51); MDiff Complete? YES; Mean Corpuscular HGB CONC 33.6 g/dL (32.0-36.0); Mean Corpuscular Hemoglobin 31.9 pg (27.0-31.0); Mean Corpuscular Volume 95.1 fL (78.0-98.0); Mean Platelet Volume 9.5 fL (7.4-10.4); Metamyelocyte 2 % (0-0); Monocytes 4 % (0-10); Neutrophil 63 % (42-75); Nucleated RBC 2 % (0); PLT Morphology Comment Appears Adequate; Platelet Count 253 thou/uL (130-400); RBC Distribution Width 15.4 % (11.5-14.5); Red Blood Cell (RBC) Count 2.55 mill/uL (4.70-6.10); White Blood Cell (WBC) Count 16.4 thou/uL (4.8-10.8)
[2017-11-21] MEDS ORDERED: Furosemide 40 MG/4 ML VIAL IVP SCH (07:30)
[2017-11-21] MEDS: Enoxaparin Sodium 120 MG/0.8 ML SYRINGE SC SCH ×2 (08:38→21:05)
[2017-11-21] MEDS: Timolol 0.5% Ophth Soln 5 ml Bottle EA EYE SCH (08:40)
[2017-11-21] MEDS: Acetaminophen 325 MG TAB PO PRN (08:40)
[2017-11-21] MEDS: Senokot S 8.6-50 MG TAB PO SCH ×2 (08:41→21:03)
[2017-11-21] MEDS: Lisinopril 5 MG TAB PO SCH ×2 (08:41→21:04)
[2017-11-21] MEDS: Carvedilol 3.125 MG TAB PO SCH ×2 (08:42→21:04)
[2017-11-21] MEDS: Atorvastatin Calcium 40 MG TAB PO SCH (08:42)
[2017-11-21] MEDS: Tamsulosin HCl 0.4 MG CAP PO SCH (08:42)
[2017-11-21] MEDS: Amiodarone 200 MG TAB PO SCH ×2 (08:43→21:04)
--- NOTE | 2017-11-21 10:13 | PDOC.PN ---
- Subjective Encounter Start Date: 11/21/17 Encounter Start Time: 10:11 Mr. Johnson was seen today in follow-up of AFIB and Cholecystitis. He says he rested ok last night. He denies any abdominal pain or nausea, and ate a solid diet. He syas he is breathing better today. He wants to go home. - Objective Resuscitation Status: Resuscitation Status FULL:Full Resuscitation MAR Reviewed: Yes Vital Signs & Weight: Vital Signs (12 hours) Temp Pulse Resp BP Pulse Ox 11/21/17 08:41 87 11/21/17 08:40 87 160/90 H 11/21/17 07:51 98.1 F 87 18 96 11/21/17 04:21 97.8 F 76 20 158/88 H 94 L Weight Admit Weight 241 lb 1.6 oz Weight 241 lb 1.6 oz I&O: 11/20/17 11/21/17 11/22/17 06:59 06:59 06:59 Intake Total 270 480 Output Total 2000 Balance 270 -1520 Result Diagrams: 11/21/17 04:22 11/20/17 04:36 Additional Labs: Accuchecks 11/21/17 11/20/17 11/20/17 05:38 21:11 17:04 POC Glucose 152 H 203 H 223 H 11/20/17 10:59 POC Glucose 163 H Phys Exam - Physical Examination HEENT: PERRLA Respiratory: no wheezing, no rhonchi, clear to auscultation bilateral minimal rales at the bases Cardiovascular: RRR, no significant murmur, no rub Gastrointestinal: soft, non-tender, positive bowel sounds mildly distended Musculoskeletal: edema present trace pedal edema Dx/Plan (1) NSTEMI (non-ST elevated myocardial infarction) Code(s): I21.4 - NON-ST ELEVATION (NSTEMI) MYOCARDIAL INFARCTION Status: Acute (2) Acute cholecystitis Code(s): K81.0 - ACUTE CHOLECYSTITIS Status: Acute (3) Atrial fibrillation Code(s): I48.91 - UNSPECIFIED ATRIAL FIBRILLATION Status: Acute (4) Obesity (BMI 30-39.9) Code(s): E66.9 - OBESITY, UNSPECIFIED Status: Chronic (5) Hypertension Code(s): I10 - ESSENTIAL (PRIMARY) HYPERTENSION Status: Chronic - Plan * NSTEMI- clinically stable- continue aspirin , Carvediolol, and lipitor * AFIB- his heart rate has been stable- Continue Amiodarone * Cholecystitis- he is tolerating a solid diet, continue flagyl, and Rocephin * Dyspnea- this has improved, likely from volume overload- he was given another dose of Lasix today. * HTN- not to goal- will restart his Amolodpine
[2017-11-21] MEDS ORDERED: Amlodipine 5 MG TAB PO SCH (10:45)
--- NOTE | 2017-11-21 11:47 | PDOC.CTH ---
<Katina Nielsen - Last Filed: 11/21/17 11:46> Cardiology Progress Note - Subjective Patient without complaints. Wanting to go home soon if possible. - Objective Vital Signs Temp Pulse Resp BP Pulse Ox 11/21/17 11:37 97.7 F 85 18 97 11/21/17 10:59 75 11/21/17 08:41 87 11/21/17 08:40 87 160/90 H 11/21/17 07:51 98.1 F 87 18 96 11/21/17 04:21 97.8 F 76 20 158/88 H 94 L Admit Weight 241 lb 1.6 oz Weight 241 lb 1.6 oz 11/20/17 11/21/17 11/22/17 06:59 06:59 06:59 Intake Total 270 480 Output Total 2000 Balance 270 -1520 - Physical Examination General/Neuro: alert & oriented x3 Neck: no JVD present Lungs: CTA Heart: RRR Abdomen: NT/ND - Telemetry Telemetry Rhythm: SR - Labs Result Diagrams: 11/21/17 04:22 11/20/17 04:36 Troponin/CKMB CK-MB (CK-2) 3.2 ng/mL (0-6.6) 11/14/17 23:47 Troponin I 1.201 ng/mL (< 0.028) H* 11/16/17 05:44 - Assessment/Plan 1. Acute cholecystitis 2. Anemia 3. s/p NSTEMi 4. AF s/p cardoversion 5. HTN 6. CAD Stable. Lovenox resumed last night. Hgb 8.1. Will continue for now. Dr. Corcoraney back tomorrow and can discuss long-term OAC with patient. Continue Amio. Continue antibiotics for conservative approach to cholecystitis. <Dionisio Chowdary - Last Filed: 11/21/17 13:57> Cardiology Progress Note - Objective Vital Signs Temp Pulse Resp BP Pulse Ox 11/21/17 11:37 97.7 F 85 18 97 11/21/17 10:59 75 11/21/17 08:41 87 11/21/17 08:40 87 160/90 H 11/21/17 07:51 98.1 F 87 18 96 11/21/17 04:21 97.8 F 76 20 158/88 H 94 L Admit Weight 241 lb 1.6 oz Weight 241 lb 1.6 oz 11/20/17 11/21/17 11/22/17 06:59 06:59 06:59 Intake Total 270 480 240 Output Total 1999 Balance 270 -1520 240 - Labs Result Diagrams: 11/21/17 04:22 11/20/17 04:36 Troponin/CKMB CK-MB (CK-2) 3.2 ng/mL (0-6.6) 11/14/17 23:47 Troponin I 1.201 ng/mL (< 0.028) H* 11/16/17 05:44 - Assessment/Plan Added one dose of lasix today and reassess symptoms given SOB and distention
--- NOTE | 2017-11-21 12:04 | PRG ---
DATE OF SERVICE: 11/21/2017 SUBJECTIVE: Mr. Johnson had one small black stool this morning. He has no abdominal pain, no nausea or vomiting. He is tolerating diet well. OBJECTIVE: VITAL SIGNS: Temperature 98.1, pulse 87, blood pressure 160/90. GENERAL: He is in no acute distress. He is alert and oriented x3. LUNGS: Clear to auscultation bilaterally. HEART: Regular rate and rhythm. ABDOMEN: Soft, mildly distended. Bowel sounds are present. EXTREMITIES: Trace lower extremity edema. LABORATORY DATA: White blood cell count 16.4, hemoglobin 8.1, platelets 253. IMPRESSION: 1. Cholecystitis is being treated conservatively with medical management. He is asymptomatic now an d tolerating antibiotics. Should be able to shift over to oral antibiotics now. 2. Anemia. He has black stools today. This was just one small black stool. His hemoglobin has bee n stable. He did have an episode of atrial fibrillation, but converted spontaneously and only had th at fibrillation when he was acutely ill. He may not require chronic anticoagulation. I would prefer to avoid anticoagulation if it is not absolutely necessary. He has been on NSAIDs and he has been s tarted on proton pump inhibitors. RECOMMENDATIONS: 1. Should be okay to just to oral antibiotics. 2. Continue pantoprazole 40 mg daily with discharge. 3. I would like to check his hemoglobin again tomorrow given black stool that he passed this morning .
[2017-11-21] MEDS: Insulin Regular 300 UNITS/3 ML VIAL SC PRN ×2 (12:54→18:25)
--- NOTE | 2017-11-21 14:25 | EKG ---
Test Reason : Blood Pressure : / mmHG Vent. Rate : 073 BPM Atrial Rate : 073 BPM P-R Int : 230 ms QRS Dur : 142 ms QT Int : 422 ms P-R-T Axes : 051 -60 -50 degrees QTc Int : 464 ms Sinus rhythm with 1st degree A-V block with Premature atrial complexes Left axis deviation Right bundle branch block T wave abnormality, consider lateral ischemia Abnormal ECG When compared with ECG of 14-NOV-2017 23:40, (Unconfirmed) Premature atrial complexes are now Present Confirmed by ENRIKE VEGA (2) on 11/21/2017 2:25:07 PM Referred By: LIONEL Confirmed By:ENRIKE VEGA
--- NOTE | 2017-11-21 14:34 | EKG ---
Test Reason : Blood Pressure : / mmHG Vent. Rate : 077 BPM Atrial Rate : 277 BPM P-R Int : 000 ms QRS Dur : 144 ms QT Int : 400 ms P-R-T Axes : 000 -86 -37 degrees QTc Int : 452 ms Normal sinus rhythm with premature atrial complexes Left axis deviation Right bundle branch block T wave abnormality, consider lateral ischemia Abnormal ECG No previous ECGs available Confirmed by ENRIKE VEGA (2) on 11/21/2017 2:33:34 PM Referred By: ILYA Confirmed By:ENRIKE VEGA
[2017-11-21] MEDS: metroNIDAZOLE 500 MG TAB PO SCH ×2 (17:38→21:03)
--- NOTE | 2017-11-21 17:51 | EKG ---
Test Reason : POST CARDIOVERSION Blood Pressure : / mmHG Vent. Rate : 070 BPM Atrial Rate : 061 BPM P-R Int : 214 ms QRS Dur : 144 ms QT Int : 434 ms P-R-T Axes : 058 -63 -27 degrees QTc Int : 468 ms Sinus rhythm with marked sinus arrhythmia with 1st degree A-V block with Premature supraventricular c omplexes Left axis deviation Right bundle branch block Abnormal ECG When compared with ECG of 15-NOV-2017 19:20, (Unconfirmed) Sinus rhythm has replaced Atrial fibrillation Confirmed by ENRIKE VEGA (2) on 11/21/2017 5:51:31 PM Referred By: LIONEL Confirmed By:ENRIKE VEGA
[2017-11-21] MEDS: cefTRIAXone\\ROCEPHIN 1 GM in Sodium Chloride 0.9% 100 ML IVPB SCH (18:24)
[2017-11-21] MEDS: Calcium Carbonate 500 MG ChewTAB PO PRN (19:40)
[2017-11-21] MEDS: traMADol HCl 50 MG TAB PO PRN (19:41)
--- NOTE | 2017-11-21 20:13 | PDOC.GSPN ---
Surgery Progress Note: Subj - Subjective Narrative: Patient denies nausea or abdominal pain. He tolerated his diet without problems. He is afebrile and his abdomen is nontender and nondistended. His white count is still elevated but down somewhat from yesterday. From a surgical standpoint he could be transitioned to oral antibiotics and discharged home since he has declined surgical intervention. He can follow up in my clinic in a couple weeks. No new recommendations. Surgery Progress Note: Obj - Vital signs Vital signs: Vital Signs - Most Recent Temp Pulse Resp BP Pulse Ox 98 F 84 20 138/80 97 11/21/17 19:50 11/21/17 19:50 11/21/17 19:50 11/21/17 16:55 11/21/17 19:50 Surgery Progress Note: Results - Labs Result Diagrams: 11/21/17 04:22 11/20/17 04:36 Lab results: Laboratory Results - last 24 hr 11/21/17 11/21/17 11:00 16:59 POC Glucose 181 H 161 H
[2017-11-21] MEDS: Melatonin 3 MG TAB PO PRN (21:03)
[2017-11-21] MEDS: Saccharomyces boulardii 250 MG CAP PO SCH (21:03)
[2017-11-22 06:48] LABS: Eosinophils 3 % (0-10); Hemoglobin 8.4 g/dL (14.0-18.0); Hypochromia SLIGHT = 6-15 cells (100X) (0-5/hpf); Lymphocytes 10 % (21-51); MDiff Complete? YES; Mean Corpuscular HGB CONC 33.1 g/dL (32.0-36.0); Mean Corpuscular Hemoglobin 32.4 pg (27.0-31.0); Mean Corpuscular Volume 97.8 fL (78.0-98.0); Mean Platelet Volume 8.9 fL (7.4-10.4); Monocytes 5 % (0-10); Neutrophil 82 % (42-75); Nucleated RBC 2 % (0); PLT Morphology Comment Appears Adequate; Platelet Count 268 thou/uL (130-400); RBC Distribution Width 16.8 % (11.5-14.5); Red Blood Cell (RBC) Count 2.58 mill/uL (4.70-6.10); White Blood Cell (WBC) Count 11.8 thou/uL (4.8-10.8)
--- NOTE | 2017-11-22 08:45 | PRG ---
DATE OF SERVICE: 11/22/2017 Mr. Johnson is feeling much better. He has no chest pain or pressure. PHYSICAL EXAMINATION: VITAL SIGNS: Blood pressure 148/62, pulse 88, it is regular with frequent PACs (premature atrial con tractions). LUNGS: Clear. CARDIAC: Normal S1, normal S2 with frequent premature beats. ABDOMEN: Obese, nontender. EXTREMITIES: Warm and dry. ASSESSMENT: 1. Coronary artery disease, recent non-ST elevation infarction, probably demand ischemia. 2. Episode of atrial fibrillation, it was short, it was treated successfully with cardioversion. He is maintaining sinus rhythm. 3. Anemia with some black stools, probably had some gastrointestinal blood loss. 4. Obesity. 5. Probable sleep apnea. 6. Acalculous cholecystitis, improved with antibiotics. PLAN: 1. He is to receive antibiotics. 2. He is on amiodarone 200 mg twice daily. 3. Aspirin 81 mg daily. 4. He will receive 1 further dose of enoxaparin, then stop. It looks like the risk of full anticoag ulation at this time is very substantial as he has had a drop in hemoglobin and hematocrit earlier du ring this admission when he was anticoagulated. He will receive 1 further dose of anticoagulation an d then be treated with aspirin only. He will be on amiodarone, which will hopefully maintain sinus r hythm. At this point, I think the risk of long-term anticoagulation exceeds the potential benefit. This can be reassessed in the future, but I think the patient is at high risk of GI bleeding and the commercial credit analyst is also concerned about the risk of GI bleeding with anticoagulation at this time. The patient remains anemic at this point. He has received iron.
[2017-11-22] MEDS ORDERED: Amlodipine 5 MG TAB PO SCH (09:00)
[2017-11-22] MEDS: Enoxaparin Sodium 120 MG/0.8 ML SYRINGE SC SCH (10:21)
[2017-11-22] MEDS: Senokot S 8.6-50 MG TAB PO SCH (10:22)
[2017-11-22] MEDS: Lisinopril 5 MG TAB PO SCH (10:22)
[2017-11-22] MEDS: Acetaminophen 325 MG TAB PO PRN (10:23)
[2017-11-22] MEDS: Atorvastatin Calcium 40 MG TAB PO SCH (10:24)
[2017-11-22] MEDS: Carvedilol 3.125 MG TAB PO SCH (10:25)
[2017-11-22] MEDS: Tamsulosin HCl 0.4 MG CAP PO SCH (10:25)
[2017-11-22] MEDS: Amiodarone 200 MG TAB PO SCH (10:25)
[2017-11-22] MEDS: metroNIDAZOLE 500 MG TAB PO SCH ×2 (10:25→15:46)
[2017-11-22] MEDS: Timolol 0.5% Ophth Soln 5 ml Bottle EA EYE SCH (10:26)
--- NOTE | 2017-11-22 11:21 | PDOC.PN ---
- Subjective Encounter Start Date: 11/22/17 Encounter Start Time: 11:19 Mr. Johnson was seen today in follow-up of AFIB, and Cholecystitis. He says he is feeling much better and ready to go home. - Objective Resuscitation Status: Resuscitation Status FULL:Full Resuscitation MAR Reviewed: Yes Vital Signs & Weight: Vital Signs (12 hours) Temp Pulse Pulse Pulse Resp BP BP 11/22/17 10:26 88 11/22/17 10:24 88 162/82 H 11/22/17 10:22 88 11/22/17 09:12 90 97 162/82 H 11/22/17 07:37 97.8 F 88 18 11/22/17 04:40 11/22/17 04:00 97.4 F L 70 18 11/22/17 02:01 11/22/17 00:00 97.6 F 71 20 BP BP Pulse Ox 11/22/17 10:26 11/22/17 10:24 11/22/17 10:22 11/22/17 09:12 162/77 H 11/22/17 07:37 96 11/22/17 04:40 148/62 H 11/22/17 04:00 97 11/22/17 02:01 172/78 H 11/22/17 00:00 94 L Weight Admit Weight 241 lb 1.6 oz Weight 241 lb 1.6 oz I&O: 11/21/17 11/22/17 11/23/17 06:59 06:59 06:59 Intake Total 480 1220 Output Total 2000 225 Balance -1520 995 Result Diagrams: 11/22/17 05:25 11/20/17 04:36 Additional Labs: Accuchecks 11/22/17 11/22/17 11/22/17 10:28 05:46 02:07 POC Glucose 198 H 137 H 161 H 11/21/17 11/21/17 20:36 16:59 POC Glucose 171 H 161 H Phys Exam - Physical Examination HEENT: PERRLA Respiratory: no wheezing, no rales, no rhonchi, clear to auscultation bilateral Cardiovascular: RRR, no significant murmur, no rub Gastrointestinal: soft, non-tender, positive bowel sounds Musculoskeletal: edema present Dx/Plan (1) NSTEMI (non-ST elevated myocardial infarction) Code(s): I21.4 - NON-ST ELEVATION (NSTEMI) MYOCARDIAL INFARCTION Status: Acute (2) Acute cholecystitis Code(s): K81.0 - ACUTE CHOLECYSTITIS Status: Acute (3) Atrial fibrillation Code(s): I48.91 - UNSPECIFIED ATRIAL FIBRILLATION Status: Acute (4) Obesity (BMI 30-39.9) Code(s): E66.9 - OBESITY, UNSPECIFIED Status: Chronic (5) Hypertension Code(s): I10 - ESSENTIAL (PRIMARY) HYPERTENSION Status: Chronic - Plan * .Cholecystitis- being treated medically * AFIB- his heart rate is stable. Cardiology input appreciated. He is too high risk for anticoagulation. aspirin only for stroke prevention * NSTEMI- stable * D/C home
[2017-11-22 11:46] VITALS: BP 137/83; TEMP 97.6
--- NOTE | 2017-11-22 13:26 | DIS ---
PRIMARY CARE PHYSICIAN: Radha Monroe MD DATE OF ADMISSION: 11/15/2017 DATE OF DISCHARGE: 11/22/2017 DISCHARGE DISPOSITION: Home. PRIMARY DISCHARGE DIAGNOSES: 1. Non-ST segment elevated myocardial infarction. 2. Atrial fibrillation. 3. Acute cholecystitis. 4. Severe iron deficiency anemia. 5. Hypertension. 6. Obesity. DISCHARGE MEDICATIONS: Include amiodarone 200 mg twice daily, aspirin 81 mg daily, ciprofloxacin 500 mg twice a day for 7 days, Flagyl 500 mg t.i.d. for 7 days, lisinopril 5 mg twice a day, pantoprazol e 40 mg twice daily, Florastor 250 mg daily, timolol ophthalmic 0.5% 1 drop in each eye daily, Flomax 0.4 mg daily, Nitrostat 0.4 mg sublingual p.r.n., magnesium oxide 800 mg daily, furosemide 40 mg twi ce a day, carvedilol 3.125 mg twice daily, Lipitor 40 mg daily, and amlodipine 5 mg daily. PROCEDURES DONE DURING ADMISSION: The patient had a cardiac catheterization and it showed 2-vessel c oronary artery disease. There was 100% RCA defect, which fills via collaterals from the left and 80% diagonal, and it was recommended medical treatment. The patient also had an echocardiogram, in ic h the ejection fraction was estimated at 55-60%. It was technically difficult due to the patient's b brian habitus. No significant valvular disease. The patient also had a CT scan of the abdomen and pel vis showing abnormal inflammatory change and enhancement of the gallbladder, which was concerning for acute cholecystitis. CODE STATUS: FULL CODE. ALLERGIES: To FLUORESCEIN, HYDROCODONE, and PENICILLIN. HOSPITAL COURSE: Mr. Johnson is a pleasant 87-year-old gentleman, who presented to the emergency room initially with complaints of chest discomfort. He was evaluated in the emergency room and found to have a non-ST segment elevated VA. He was seen urgently by Cardiology and underwent cardiac catheter ization. He was found to have 2-vessel coronary artery disease, which was not amenable to invasive t herapy such as a stent placement, angioplasty, or bypass. It was recommended that he be treated medi nay. Also, during this hospital stay, he developed atrial fibrillation. This was treated with rat e control medications with carvedilol as well as he was placed on amiodarone. He will not be anticoa gulated due to severe anemia and he had an initial drop in his hemoglobin during his hospital stay. He has since converted to sinus and anticoagulation can be readdressed once he is clinically more sta ble and once the anemia is addressed further. He was seen by Gastroenterology both due to abdominal pain and findings on CT related to gallbladder disease. He was seen by General Surgery as well. Reg arding the gallbladder disease, findings on CT scan were consistent with acute cholecystitis; however , given his recent VA during this hospital stay and also his multiple comorbid conditions, it was rec ommended that this be treated nonsurgically. He was placed on antibiotics to cool off the gallbladde r. Also, endoscopy will be held off until a later date once he is stabilized from the [facility] to furt her evaluate the anemia. It is consistent with possible iron deficiency anemia and his iron level wa s low normal, so was his ferritin level. His indices were normocytic however, and I did explain to power verdin and his that he may need hematology evaluation as well should it nocturnist that he does not sanders ve iron deficiency anemia or possibly have multiple etiologies for his anemia.
--- NOTE | 2017-11-22 14:33 | PRG ---
DATE OF SERVICE: 11/22/2017 SUBJECTIVE: Mr. Johnson has had no bowel movement today. No abdominal pain. He is tolerating his di et well. OBJECTIVE: VITAL SIGNS: Temperature 97.6, pulse 77, blood pressure 137/83. GENERAL: He is in no acute distress. He is alert and oriented x3. LUNGS: Clear to auscultation bilaterally. HEART: Regular rate and rhythm without murmur. ABDOMEN: Soft, nontender. Bowel sounds are present. EXTREMITIES: No lower extremity edema. LABORATORY DATA: Hemoglobin is 8.4. IMPRESSION: 1. Acute cholecystitis being treated conservatively with medical management with antibiotics. He is responding to this well and has no abdominal pain and tolerating a regular diet well. 2. Anemia with some component of blood loss. He did have black stools previously, but no ongoing ov ert bleeding now. His iron studies are consistent with anemia of chronic disease. We will treat wit h a proton pump inhibitor and follow up as needed. RECOMMENDATIONS: 1. Pantoprazole 40 mg daily. 2. Follow up in GI clinic as needed.
--- NOTE | 2017-11-22 15:17 | PDOC.GSPN ---
Surgery Progress Note: Subj - Subjective Narrative: Patient is feeling well and expects to go home today. No pain tenderness or nausea and is tolerating his diet. White count is down. I offered to see him in my clinic in follow-up and he prefers to follow-up with his primary care doctor in [place]. He has my contact information if he develops any abdominal pain or nausea. Surgery Progress Note: Obj - Vital signs Vital signs: Vital Signs - Most Recent Temp Pulse Resp BP Pulse Ox 97.6 F 77 18 137/83 96 11/22/17 11:46 11/22/17 11:46 11/22/17 11:46 11/22/17 11:46 11/22/17 11:46 Surgery Progress Note: Results - Labs Result Diagrams: 11/22/17 05:25 11/20/17 04:36 Lab results: Laboratory Results - last 24 hr 11/22/17 11/22/17 11/22/17 05:25 05:46 10:28 WBC 11.8 H RBC 2.58 L Hgb 8.4 L Hct 25.2 L MCV 97.8 MCH 32.4 H MCHC 33.1 RDW 16.8 H Plt Count 268 MPV 8.9 Neutrophils % (Manual) 82 H Lymphocytes % (Manual) 10 L Monocytes % (Manual) 5 Eosinophils % (Manual) 3 Nucleated RBCs # (Man) 2 H Hypochromia SLIGHT = 6-15 cells Plt Morphology Comment Appears Adequate POC Glucose 137 H 198 H
== END 2017-11-22 15:47 | disposition home health service (06) | DRG 281 ==
LOC: ERS 23:34 → 2SE 11-15 01:10 → ERS 11-15 03:30
PROVIDERS: ADMIT Hospitalist; ATTEND Hospitalist
PROC: 4A023N7 Measurement of Cardiac Sampling and Pressure, Left Heart, Percutaneous Approach (ICD-10-PCS; 2017-11-16)
PROC: B2111ZZ Fluoroscopy of Multiple Coronary Arteries using Low Osmolar Contrast (ICD-10-PCS; 2017-11-16)
PROC: 5A2204Z Restoration of Cardiac Rhythm, Single (ICD-10-PCS; principal; 2017-11-19)
DX: I21.4 Non-ST elevation (NSTEMI) myocardial infarction (principal); N17.9 Acute kidney failure, unspecified; E44.0 Moderate protein-calorie malnutrition; E87.1 Hypo-osmolality and hyponatremia; E87.2 Acidosis; I45.2 Bifascicular block; K81.0 Acute cholecystitis; I13.0 Hypertensive heart and chronic kidney disease with heart failure and stage 1 through stage 4 chronic kidney disease, or unspecified chronic kidney disease; I50.30 Unspecified diastolic (congestive) heart failure; I25.10 Atherosclerotic heart disease of native coronary artery without angina pectoris; E66.9 Obesity, unspecified; Z68.36 Body mass index [BMI] 36.0-36.9, adult; G47.33 Obstructive sleep apnea (adult) (pediatric); E78.5 Hyperlipidemia, unspecified; H40.9 Unspecified glaucoma; K57.90 Diverticulosis of intestine, part unspecified, without perforation or abscess without bleeding; H35.30 Unspecified macular degeneration; M19.90 Unspecified osteoarthritis, unspecified site; D72.829 Elevated white blood cell count, unspecified; E11.22 Type 2 diabetes mellitus with diabetic chronic kidney disease; N18.2 Chronic kidney disease, stage 2 (mild); E87.5 Hyperkalemia; I87.2 Venous insufficiency (chronic) (peripheral); I48.2 Chronic atrial fibrillation; D50.9 Iron deficiency anemia, unspecified; Z79.82 Long term (current) use of aspirin; Z88.0 Allergy status to penicillin; Z88.5 Allergy status to narcotic agent; I25.2 Old myocardial infarction; Z85.828 Personal history of other malignant neoplasm of skin; Z85.46 Personal history of malignant neoplasm of prostate; Z87.891 Personal history of nicotine dependence; Z95.5 Presence of coronary angioplasty implant and graft; Z82.49 Family history of ischemic heart disease and other diseases of the circulatory system; Z80.0 Family history of malignant neoplasm of digestive organs; Z80.42 Family history of malignant neoplasm of prostate
CPT/HCPCS: 36415; 36416; 71045; 71046; 74019; 74177; 76705; 76942; 80048; 80053; 80076; 81003; 82274; 82550; 82553; 82728; 83010; 83036; 83540; 83550; 83605; 83615; 83690; 83735; 83880; 84484; 85025; 85046; 86140; 87040; 87804; 92960; 93005; 93010; 93306; 93454; 93798; 94640; 94760; 96361; 96365; 96375; A4216; C1769; G8978-GP-CJ; G8979-GP-CJ; G8980-GP-CJ; J0461; J0692; J0696; J1644; J1650; J1815; J1940; J1956; J2001; J2270; J2405; J2704; J2916; J3010; J7050; J7611

== ENCOUNTER 2019-07-24 04:21 | Inpatient (IN) | payer MEDICARE ==
[2019-07-24 07:45] VITALS: BMI 35.8
[2019-07-24] MEDS ORDERED: Prevnar 13-Val Conj/PF 0.5 ML SYRINGE IM ONE (08:15)
[2019-07-24] MEDS ORDERED: Lisinopril 5 MG TAB PO SCH (09:30)
[2019-07-24] MEDS ORDERED: Aspirin 81 mg Enteric Coated Tablet PO SCH (09:30)
[2019-07-24] MEDS ORDERED: Furosemide 40 MG TAB PO SCH (09:30)
[2019-07-24] MEDS ORDERED: Amlodipine 5 MG TAB PO SCH (09:30)
--- NOTE | 2019-07-24 09:31 | PDOC.HHP ---
Hospitalist HPI - History of Present Illness Altered mental status History of Present Illness: This patient is a 89-year-old male with a history of significant coronary artery disease that is not amenable to intervention. He has had prior MIs, stent placements. He also has a history of atrial fibrillation that probably converted back to sinus rhythm during a hospitalization in 2018. Patient had significant iron deficiency anemia at that time and was not placed on anticoagulation. Patient was in his usual state of health at home with his . He developed some confusion yesterday. He can recall the episodes of confusion quite well. States he was having some difficulty trying to place the chain on his door lock. He also had some difficulty trying to get the sheets arranged properly on his bed. He states they all ended up on the floor. Per the record the patient also had some other confusion issues referring to towels as "#9" and putting his clothes and piles on the floor. The patient initially presented to the emergency department in [place]. There the patient was assessed and was found to have difficulty determining the time on the clock although he was able to name all of the numbers and components of the clock. He had no other neurologic findings at that time. Work-up there included labs and imaging. He had a mild leukocytosis but otherwise his labs were generally unremarkable his initial blood pressure was 202/93 and a temperature of 99.2 his exam was otherwise unremarkable he did apparently report some generalized abdominal discomfort at that time specifics of his note, patient did have a negative COVID -19 screening sodium was 132 white count was 13.2 hemoglobin 11.4 troponin was normal alcohol level normal ammonia level normal CT head only some chronic findings CT abdomen and pelvis showed nothing specific other than some generalized vascular calcifications drug screen was negative urinalysis was only notable for some protein disposition from there was to transfer the patient to this facility was initially admitted to the family practice residents however upon their evaluation of the patient this morning it was found that his PCP was Dr. Monroe. Therefore his care is been transferred to the hospitalist service. Currently the patient feels like he is completely back to his normal baseline. He has insight to his confusion. He recalls his difficulty with the clock at the emergency department in [place] and that is now completely and fully resolved. He states he has had one other episode like this in the past and that was related to a urinary tract infection. That was documented in his record here in 2018. ED Course: At the emergency department in [place] the patient received IV fluids sublingual nitroglycerin with substantial improvement in his blood pressure he also received clonidine, pantoprazole and famotidine. Hospitalist ROS - Review of Systems Constitutional: reports: fever, chills Eyes: denies: vision change Cardiovascular: denies: chest pain, palpitations Gastrointestinal: denies: nausea, vomiting, abdominal pain Genitourinary: reports: frequency, other (Frequent nocturia chronically) All other systems reviewed; all pertinent +/- noted in HPI/Subj Hospitalist History - Past Medical History Source: patient Cardiac: reports: AFIB, CAD (Heart cath in 2018 revealed significant two-vessel disease that was not amenable to intervention.), HTN, Hyperlipidemia Gastrointestinal: reports: Diverticulosis Heme/Onc: reports: Iron deficiency anemia Musculoskeletal: reports: Osteoarthritis Renal/: reports: Benign prostatic enlarg. - Exam General Appearance: NAD, awake alert Neck: supple, symmetric, no JVD, no thyromegaly, no lymphadenopathy, no carotid bruit Heart: RRR, no murmur, no gallops, no rubs, normal peripheral pulses Respiratory: CTAB, no wheezes, no rales, no ronchi, normal chest expansion, no tachypnea, normal percussion Gastrointestinal: soft, non-tender, non-distended, normal bowel sounds, no palpable masses, no hepatomegaly, no splenomegaly, no bruit Extremities: no cyanosis, no clubbing, no edema Skin: normal turgor, no lesions, no rashes Neurological: cranial nerve grossly intact, normal sensation to touch, no weakness, no focal deficits, no new deficit Musculoskeletal: normal tone, normal strength, no muscle wasting Psychiatric: normal affect, normal behavior, A&O x 3 Hospitalist Results - Labs Lab results: Lipase 26, ammonia 23, drug screen negative, alcohol less than 10, procalcitonin 0.06, coronavirus screen negative next urinalysis with protein and rare bacteria otherwise normal. Troponin 0 0.02, glucose 114, BUN 20, creatinine 0.99, sodium 132, potassium 4.4, chloride 97, CO2 26, calcium 8.9, LFTs normal, WBC 13.2, hemoglobin 11.4, platelets 294. Additional comment: CT abdomen and pelvis no acute findings CT head chronic findings with no acute abnormalities chest x-ray negative - EKG Interpretation EKG: Sinus bradycardia with first-degree AV block with a rate of 58. Hospitalist H&P A/P - Problem (1) TIA (transient ischemic attack) Code(s): G45.9 - TRANSIENT CEREBRAL ISCHEMIC ATTACK, UNSPECIFIED Status: Acute (2) History of atrial fibrillation Code(s): Z86.79 - PERSONAL HISTORY OF OTHER DISEASES OF THE CIRCULATORY SYSTEM Status: Acute (3) Coronary artery disease Code(s): I25.10 - ATHSCL HEART DISEASE OF [place] CORONARY ARTERY W/O ANG PCTRS Status: Acute (4) Hyperlipidemia Code(s): E78.5 - HYPERLIPIDEMIA, UNSPECIFIED Status: Acute (5) BPH (benign prostatic hyperplasia) Code(s): N40.0 - BENIGN PROSTATIC HYPERPLASIA WITHOUT LOWER URINRY TRACT SYMP Status: Acute (6) Hypertension Code(s): I10 - ESSENTIAL (PRIMARY) HYPERTENSION Status: Chronic (7) Obesity (BMI 30-39.9) Code(s): E66.9 - OBESITY, UNSPECIFIED Status: Chronic - Plan Plan: Acute metabolic encephalopathy/TIA: This patient had a strange onset of some acute metabolic encephalopathy. He does not appear to have any underlying dementia. Currently he is very cognitively intact and appropriate. He is very detailed about the history and has good insight to these episodes. Concerning for a TIA primarily based on the fact that he has a history of significant atherosclerotic disease. Possibility of a stroke exist although initial CT was negative. This would be partially based on his history of his atherosclerotic disease and transient A. fib. Will obtain echocardiogram. Carotid Dopplers. Continue telemetry. MRI of the brain. Neurology consult. He is currently on aspirin and a statin. History of atrial fibrillation: This patient has a history of transient atrial fibrillation in 2018. There is no evidence that he has had a recurrence since that time. Given his current symptomatology well consult cardiology. I do not have any indication that the patient has had recurrence of A. fib since that time. However given the current symptoms consideration may be given to anticoagulation. Hypertension: Patient has a history of hypertension. He had a significant elevation of his blood pressure on presentation to the emergency department in [place]. It did improve with nitroglycerin and clonidine. Possible that this is related to his altered mental status. Could potentially have been a hypertensive encephalopathy. Blood pressure is much improved although still slightly elevated. We will continue to monitor closely and not be too aggressive and reducing it until we have evaluated for possible stroke.
--- NOTE | 2019-07-24 13:15 | CON ---
DATE OF CONSULTATION: HISTORY OF PRESENT ILLNESS: Nir Johnson is an 89-year-old white male, who has followed with Dr. Smiley for many years. In July 1995, he underwent PTCA of first diagonal lesion. In September 1995, he underwent redo PTCA of this. In January 2001, there was a 70% lesion in the first diagonal; however, the distal RCA had a 90% lesion. He underwent placement of a 3.0 x 15 mm stent. In August 2001 catheterization, the stent continues to show good results. However, the first diagonal had an 80% lesion. He presented in October 2017 having done well during the interim. He again had some infrascapular pain, which is in general his anginal-type pain. Troponin I was 0.9. He underwent cardiac catheterization, which revealed 30% left main, 80% first diagonal. There was total occlusion of the distal right coronary artery at the area of stent implantation and the distal right coronary filled retrograde. Also during that admission, he developed atrial fibrillation. He was started on amiodarone as well as anticoagulation with Lovenox. He did have some black bowel movements and was somewhat anemic and was felt that he should not be anticoagulated. On November 19, 2017 he underwent electrical cardioversion by Dr. Smiley and with 200 joules, returned to sinus rhythm. Again, it was felt that he was not a good candidate for long-term anticoagulation, but he did get the Lovenox for several days. He has not had any further documentation of atrial fibrillation since that time. It also does not appear that he has had any further gastrointestinal evaluation. Mr. Johnson was seen in the office for follow up in January,. He had a heart rate in the low 50s and Amiodarone was discontinued at that time. He states that several weeks ago, he started to notice a lot of dark bowel movements. He saw his oracle programmer analyst, which he thinks is Dr. Garrett and was told to stop taking his aspirin several weeks ago. Then yesterday, he had an episode of confusion with difficulty in doing simple tasks around the house, difficulty getting into the sheets in bed, etc. He was taken to the [facility], evaluated and then transferred here. He denies any chest discomfort or infrascapular pain. He denies any shortness of breath or palpitations. PAST MEDICAL HISTORY: Coronary artery disease, episode of atrial fibrillation in October 2017, history of cholelithiasis, hypertension, hyperlipidemia, iron-deficiency anemia, and benign prostatic hypertrophy. HOME MEDICATIONS: (The patient states he is not taking aspirin 81 for several weeks). 1. Amlodipine 5 mg daily. 2. Atorvastatin 40 daily. 3. Vitamin D3. 4. Vitamin B12. 5. Furosemide 40 q.a.m. 6. Lisinopril 5 mg b.i.d. 7. Magnesium oxide 400 at bedtime. 8. Nitrostat p.r.n. 9. Protonix 40 mg b.i.d. 10. Flomax 0.4 at bedtime. ALLERGIES: HYDROCODONE, PENICILLIN, AND FLUORESCEIN. REVIEW OF SYSTEMS: A 10-point review of systems is otherwise unremarkable. PHYSICAL EXAMINATION: VITAL SIGNS: Blood pressure 167/73 and pulse of 66 and sinus rhythm on the monitor. HEENT: PERRL. NECK: Supple. CHEST: Clear. CARDIAC: S1 and S2 normal without any S3, S4, or murmurs. Carotid upstrokes normal without bruits. ABDOMEN: Normal bowel sounds without tenderness or organomegaly. EXTREMITIES: Revealed no clubbing, cyanosis, or edema. NEUROLOGIC: Grossly intact. SKIN: Warm and dry. LABORATORY DATA: EKG reveals sinus bradycardia with rate of 58 per minute, first-degree AV block, left axis deviation, and right bundle-branch block. Blood work from [facility] revealed negative urine drug screen, ammonia 23. EtOH less than 10. Sodium 132, potassium 4.4, chloride 97, carbon dioxide 26, BUN 20, creatinine 0.99, and glucose 114. Liver function tests normal. Hemoglobin 11.4, hematocrit 38.4, white count 13,200, and platelets 294,000. It is of note that he has hypochromic microcytic anemia. Head CT in [place] was unremarkable. IMPRESSION: 1. Transient confusion, which appears to have resolved. It does not appear that he had any localizing neurological symptoms. This certainly may be related to being off his aspirin for several weeks. 2. Hypochromic microcytic anemia, probably due to iron deficiency. As best I can tell, he has never undergone Gastroenterology evaluation except for a colonoscopy many years ago. This certainly may need to be further evaluated. 3. History of atrial fibrillation in October 2017 converted electrically to sinus rhythm. Amiodarone was stopped several months later due to bradycardia. He has never been on anticoagulation due to dark stools at the time of electrical cardioversion and iron deficiency. 4. Hypertension. 5. Hypercholesterolemia. 6. Obesity. 7. Benign prostatic hyperplasia. PLAN: Mr. Johnson has been restarted on his aspirin. There is no evidence that he has had recurrence of atrial fibrillation. [facility] and TIBC will be ordered. He probably needs to undergo GI evaluation. Since he was not on aspirin when this occurred, I would simply resume his aspirin and avoid anticoagulation at this time with possible gastrointestinal blood loss. Job ID: [id number] MTDD
--- NOTE | 2019-07-24 13:18 | ULT ---
BILATERAL CAROTID DUPLEX ULTRASOUND INCLUDING COLOR AND SPECTRAL DOPPLER IMAGING: HISTORY: TIA. FINDINGS: Minimal visual plaque, evidence for atherosclerotic vascular disease. PSV right ICA 109 cm/s, EDV 16 cm/s, ICA/CCA ratio 0.8. PSV left ICA 59 cm/s, EDV 8 cm/s, ICA/CCA ratio 0.6. Vertebral flow is antegrade. 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 No hemodynamica lly significant stenosis. POS: [facility]
--- NOTE | 2019-07-24 13:18 | MRI ---
EXAM: BRAIN MRI WITHOUT IV CONTRAST: History: TIA FINDINGS: There is bilateral atrophy and chronic white matter ischemic changes with fairly prominent periventri cular white matter changes. No evidence for acute infarct. No mass or midline shift. No intra or extr aaxial hemorrhage. IMPRESSION: Atrophy and chronic white matter ischemic change. No evidence for acute infarct or other acute proces s. POS: [facility]
--- NOTE | 2019-07-24 13:39 | CON ---
DATE OF CONSULTATION: 07/24/2019 CONSULTING PHYSICIAN: Hospitalist Service. IMPRESSION: 1. Possible transient ischemic attack. 2. Possible aspirin failure. PLAN: 1. If MRI of the brain confirms evidence of an ischemic event, I would add Plavix 75 mg per day. 2. Carotid ultrasound. 3. Echocardiogram. HISTORY OF PRESENT ILLNESS: Mr. Johnson is an 89-year-old gentleman with past history of hypertension, coronary artery disease with previous myocardial infarction, hyperlipidemia, peripheral vascular disease, right bundle branch block, and questionable atrial fibrillation. He presented after developing some confusion. He was having trouble locking the door and manipulating the covers to go to bed. He was taken to the emergency room and was noted that he could not tell the time on the clock. He had symptoms for several hours. There was no associated headache, nausea, vomiting, vertigo, lateralized weakness or numbness. He has had some chronic abdominal pain, which has been attributed to nonsteroidal use. He is complaining of some of that today as well. He denies any history of stroke-like symptoms, otherwise. PAST MEDICAL HISTORY: As listed above. ALLERGIES: PER CHART. SOCIAL HISTORY: No tobacco or alcohol use. FAMILY HISTORY: Noncontributory. REVIEW OF SYSTEMS: Ten-system review of systems is otherwise negative. PHYSICAL EXAMINATION: GENERAL: He is a well-nourished elderly man, who appears younger than his age. VITAL SIGNS: Stable. He has been afebrile. HEENT: Pupils are equal and reactive. Conjunctivae clear. Oropharynx clear. NECK: Supple. EXTREMITIES: No cyanosis present. NEUROLOGIC: He was alert and oriented. His speech was fluent and clear. Cranial nerves 2 through 12 are intact. Motor exam showed equal strength. There was no tremor or dysmetria. Sensations intact to touch. He was sitting at the bedside without any difficulty. Gait was not tested. DIAGNOSTIC STUDIES: CT of the brain was unremarkable. Vascular studies are pending. SUMMARY: This is an elderly gentleman with some transient nonspecific confusions, this is the second time it has happened in his life. There are no definitive stroke symptoms otherwise given the duration of symptoms, if his MRI shows evidence of an acute ischemic event, I would make the adjustments as noted above. Otherwise, I would continue his current treatment plan given the lack of other etiologies based on his lab work. Job ID: [id number]
[2019-07-24] MEDS: Calcium Carbonate 500 MG ChewTAB PO PRN ×2 (17:07→21:12)
[2019-07-24] MEDS: Acetaminophen 325 MG TAB PO PRN (18:31)
[2019-07-24] MEDS ORDERED: Senokot S 8.6-50 MG TAB PO PRN (20:50)
[2019-07-24] MEDS: Timolol 0.5% Ophth Soln 5 ml Bottle EA EYE SCH (21:12)
[2019-07-24] MEDS: Tamsulosin HCl 0.4 MG CAP PO SCH (21:13)
[2019-07-24] MEDS: Lisinopril 5 MG TAB PO SCH (21:14)
[2019-07-24] MEDS: Atorvastatin Calcium 40 MG TAB PO SCH (21:14)
[2019-07-24] MEDS: Magnesium Oxide 400 MG TAB PO SCH (21:14)
[2019-07-25] MEDS: Mag-Al 1200 mg/1200 mg/30 ML UDCUP PO PRN ×4 (00:25→17:47)
[2019-07-25] MEDS ORDERED: Ondansetron ODT 4 MG TAB PO SCH (02:30)
[2019-07-25 05:21] LABS: Anion Gap 10 mmol/L (10-20); BUN (Urea Nitrogen) 15 mg/dL (8.4-25.7); Calc. Creatinine Clearance 87 mL/min (70-130); Calcium 8.5 mg/dL (7.8-10.44); Carbon Dioxide 27 mmol/L (23-31); Cardiac Risk 2.6 (Less than 4.5); Chloride 89 mmol/L (98-107); Cholesterol 128 mg/dl (< 200 Desired); Estimated GFR-MDRD 80; Glucose 176 mg/dL (83-110); HDL Cholesterol 49 mg/dL (>60 Neg Risk); Iron 23 ug/dL (65-175); Iron Binding Capacity, Total 365 mcg/dL (261-462); LDL Cholesterol, Calculated 65 mg/dL; Sodium 122 mmol/L (136-145); Triglycerides 70 mg/dL (Less than 150)
[2019-07-25 05:47] LABS: #Eosinphils 0.1 thou/uL (0.0-0.7); #Lymphocytes 0.9 thou/uL (1.20-3.40); #Monocytes 0.8 thou/uL (0.11-0.59); #Neutrophils 9.9 thou/uL (1.40-6.50); %Basophils 0.4 % (0.0-1.0); %Eosinophils 0.5 % (0.0-10.0); %Lymphocytes 7.6 % (21.0-51.0); %Monocytes 7.2 % (0.0-10.0); %Neutrophils 84.3 % (42.0-75.0); Anisocytosis SLIGHT = 6-15 cells (100X) (0-5/hpf); Elliptocytes SLIGHT = 2-5 cells (100X) (0-1/hpf); Hemoglobin 10.9 g/dL (14.0-18.0); Hypochromia SLIGHT = 6-15 cells (100X) (0-5/hpf); Large Platelets SLIGHT; MDiff Complete? YES; Mean Corpuscular HGB CONC 29.6 g/dL (32.0-36.0); Mean Corpuscular Hemoglobin 22.1 pg (27.0-31.0); Mean Corpuscular Volume 74.6 fL (78.0-98.0); Mean Platelet Volume 10.3 fL (7.4-10.4); Microcytosis SLIGHT = 6-15 cells (100X) (0-5/hpf); Platelet Count 269 thou/uL (130-400); Platelet Morphology Comment Appears Adequate; RBC Distribution Width 16.8 % (11.5-14.5); Red Blood Cell (RBC) Count 4.95 mill/uL (4.70-6.10); White Blood Cell (WBC) Count 11.7 thou/uL (4.8-10.8)
[2019-07-25] MEDS: Nitroglycerin 0.4 MG TAB (25 Tab Bottle) SL SCH ×2 (06:32→12:58)
[2019-07-25] MEDS: Lisinopril 5 MG TAB PO SCH ×2 (08:18→21:21)
[2019-07-25] MEDS: Aspirin Chewable 81 MG TAB PO SCH (08:19)
[2019-07-25] MEDS: Cyanocobalamin (Vitamin B-12) 1,000 MCG TAB PO SCH (08:19)
[2019-07-25] MEDS: Timolol 0.5% Ophth Soln 5 ml Bottle EA EYE SCH ×2 (08:20→21:22)
[2019-07-25] MEDS ORDERED: Furosemide 40 MG TAB PO SCH (09:00)
[2019-07-25] MEDS ORDERED: Amlodipine 5 MG TAB PO SCH ×3 (09:00→10:00)
[2019-07-25] MEDS ORDERED: Non-Formulary Item 1 EACH (Cholecalciferol (Vitamin D3) [Vitamin D3] 1,000 UNIT) PO SCH (09:00)
[2019-07-25] MEDS ORDERED: Non-Formulary Item 1 EACH (Cyanocobalamin (Vitamin B-12) [Vitamin B12] 1,000 MCG) PO SCH (09:00)
[2019-07-25] MEDS ORDERED: Milk Of Magnesia 30 ML UDCUP PO PRN (09:53)
--- NOTE | 2019-07-25 10:02 | PDOC.HOSPP ---
- Subjective Encounter Date: 07/25/19 Subjective: Patient reports he had significant abdominal pain overnight. He reports that he is chronically had some abdominal pain. Apparently just saw GI on to assess his abdominal pain. He reports that in the past that he has had diagnosis of gallbladder disease the record does confirm that. The patient had recently had an MRI therefore any treatment surgically was postponed. On follow -up he was told that he no longer needed to have any surgical intervention for his gallbladder. Patient also has a umbilical hernia. It is not specifically bothering him at the moment. He describes his abdominal pain is diffuse. Says he is not had a bowel movement in a couple of days. He does have occasional constipation at home for which he takes milk of magnesia and occasionally a suppository. Continues to have pain now. Cognitively he feels like he is still at his baseline. - Objective Vital Signs & Weight: Vital Signs (12 hours) Temp Pulse Resp BP BP Pulse Ox 07/25/19 07:47 98 F 70 18 169/74 H 97 07/25/19 06:31 97.8 F 77 22 H 163/69 H 96 07/25/19 04:14 186/81 H 07/25/19 04:00 98.5 F 64 20 186/81 H 98 07/25/19 00:00 98.6 F 63 20 193/107 H 97 Weight Weight 235 lb 8 oz I&O: 07/24/19 07/25/19 07/26/19 06:59 06:59 06:59 Intake Total 300 Balance 300 Result Diagrams: 07/25/19 04:37 07/25/19 04:37 Hospitalist ROS - Medication Medications: Active Medications Generic Name Dose Route Start Last Admin Trade Name Freq PRN Reason Stop Dose Admin Acetaminophen 650 mg 07/24/19 09:15 07/24/19 18:31 Tylenol PO 650 mg Q4H PRN Administration Headache/Fever/Mild Pain (1-3) Al Hydroxide/Mg Hydroxide 30 ml 07/24/19 23:07 07/25/19 07:43 Maalox PO 30 ml Q4H PRN Administration Indigestion Aspirin 81 mg 07/25/19 09:00 07/25/19 08:19 Aspirin Chewable PO 81 mg DAILY JAMES Administration Atorvastatin Calcium 40 mg 07/24/19 21:00 07/24/19 21:14 Lipitor PO 40 mg HS JAMES Administration Calcium Carbonate 1,000 mg 07/24/19 16:32 07/24/19 21:12 Tums PO 1,000 mg Q4H PRN Administration Heartburn or Indigestion Cholecalciferol 1,000 units 07/25/19 09:00 07/25/19 08:18 Vitamin D3 PO 1,000 units DAILY JAMES Administration Cyanocobalamin 1,000 mcg 07/25/19 09:00 07/25/19 08:19 Vitamin B-12 PO 1,000 mcg DAILY JAMES Administration Furosemide 40 mg 07/25/19 09:00 07/25/19 08:19 Lasix PO 40 mg DAILY JAMES Administration Lisinopril 5 mg 07/24/19 21:00 07/25/19 08:18 Zestril PO 5 mg BID JAMES Administration Magnesium Oxide 400 mg 07/24/19 21:00 07/24/19 21:14 Magnesium Oxide PO 400 mg HS JAMES Administration Nitroglycerin 0.4 mg 07/24/19 09:30 07/25/19 06:32 Nitrostat SL 0.4 mg Q5MIN JAMES Administration Pantoprazole Sodium 40 mg 07/24/19 21:00 07/25/19 08:20 Protonix PO 40 mg BID JAMES Administration Senna/Docusate Sodium 2 tab 07/24/19 20:50 07/24/19 21:12 Senokot S PO 2 tab BIDPRN PRN Administration Constipation Tamsulosin HCl 0.4 mg 07/24/19 21:00 07/24/19 21:13 Flomax PO 0.4 mg HS JAMES Administration Timolol Maleate 1 drop 07/24/19 21:00 07/25/19 08:20 Timoptic 0.5% Ophth Soln EA EYE 1 drop BID JAMES Administration - Exam General Appearance: NAD, awake alert General - other findings: He does appear uncomfortable. Heart: RRR, no murmur, no gallops, no rubs, normal peripheral pulses Respiratory: CTAB, no wheezes, no rales, no ronchi, normal chest expansion, no tachypnea, normal percussion Gastrointestinal: soft, non-distended, normal bowel sounds, no palpable masses, tender to palpation (Mildly diffusely tender.) Gastrointestinal - other findings: Umbilical hernia reducible. Soft. Extremities: no cyanosis, no clubbing, no edema Skin: normal turgor Neurological: no focal deficits Musculoskeletal: normal tone Psychiatric: normal affect, normal behavior, A&O x 3 Hosp A/P (1) TIA (transient ischemic attack) Code(s): G45.9 - TRANSIENT CEREBRAL ISCHEMIC ATTACK, UNSPECIFIED Status: Acute (2) History of atrial fibrillation Code(s): Z86.79 - PERSONAL HISTORY OF OTHER DISEASES OF THE CIRCULATORY SYSTEM Status: Acute (3) Coronary artery disease Code(s): I25.10 - ATHSCL HEART DISEASE OF [place] CORONARY ARTERY W/O ANG PCTRS Status: Acute (4) Hyperlipidemia Code(s): E78.5 - HYPERLIPIDEMIA, UNSPECIFIED Status: Acute (5) BPH (benign prostatic hyperplasia) Code(s): N40.0 - BENIGN PROSTATIC HYPERPLASIA WITHOUT LOWER URINRY TRACT SYMP Status: Acute (6) Hypertension Code(s): I10 - ESSENTIAL (PRIMARY) HYPERTENSION Status: Chronic (7) Obesity (BMI 30-39.9) Code(s): E66.9 - OBESITY, UNSPECIFIED Status: Chronic (8) Hyponatremia Code(s): E87.1 - HYPO-OSMOLALITY AND HYPONATREMIA Status: Acute - Plan TIA/acute metabolic encephalopathy: Patient presented with confusion. Patient had full memory and insight to his confusion. It appeared to resolve prior to arrival here. Initial imaging has been negative for any type of acute stroke. Concerning for the possibility of a TIA. Echo and carotid Dopplers were unremarkable. Patient has a history of A. fib with no evidence of recurrence. He is not on anticoagulation because of history of iron deficiency anemia. Recommendation from cardiology is aspirin. At this point is concerning that his symptoms may be related to rapidly decreasing sodium levels. Hyponatremia: Patient has developed significant hyponatremia very rapidly. He was 132 in the emergency department in [place] but now is down to 122 today. Reviewing his labs in the computer does not appear to reveal any significant prior hyponatremia issues. This may account for his acute confusional state prior to admission. Will consult nephrology for assistance. It does not appear that he is on any medications that should induce this. Can order a recheck on the lab just to confirm the accuracy. Abdominal pain: This patient saw GI on . He is apparently had some recurrent abdominal pain that has been causing him some difficulty with sleeping at night. Dr. Garrett evaluated the patient on in the outpatient clinic. He prescribed MiraLAX and PPI. Patient does have some iron deficiency anemia which is not new. My understanding is that the patient has had endoscopy in the past but chose not to follow-up for additional work-up. Discussed the case with Dr. Garrett. Given his current abdominal pain and iron deficiency anemia he will likely need endoscopy. Because of his electrolyte issues and cardiac history will probably need to do that while he is here in the hospital. His umbilical hernia is soft and reducible. He is not particularly tender in the right upper quadrant and nothing else suggest this would be cholecystitis. We will give him some milk of magnesia now. He says he uses this at home. If that does not help consider MiraLAX. I will consult GI to get on board to assist with this now. Coronary artery disease: Continue with the patient's usual home regimen including the aspirin. Hypertension: Patient's blood pressure continues to run a bit high. He is on low-dose amlodipine and lisinopril. I will give an additional dose of the amlodipine. He has opportunity to increase the lisinopril if needed. Will give as needed hydralazine for significant elevations. History of atrial fibrillation: Again the patient had a history of transient atrial fibrillation. It resolved quickly with amiodarone. This was not continued. The patient was not placed on anticoagulation because of concerns regarding iron deficiency anemia. The patient did not pursue aggressive work-up of the iron deficiency anemia. Cardiology has seen the patient and has recommended aspirin until that can be evaluated further.
[2019-07-25 10:56] LABS: Anion Gap 12 mmol/L (10-20); BUN (Urea Nitrogen) 17 mg/dL (8.4-25.7); Calc. Creatinine Clearance 84 mL/min (70-130); Calcium 8.3 mg/dL (7.8-10.44); Carbon Dioxide 25 mmol/L (23-31); Chloride 91 mmol/L (98-107); Estimated GFR-MDRD 76; Glucose 132 mg/dL (83-110); Potassium 4.3 mmol/L (3.5-5.1); Sodium 124 mmol/L (136-145)
[2019-07-25] MEDS: hydrALAZINE 20 MG/ML VIAL SLOW IVP PRN (11:53)
[2019-07-25 13:35] LABS: Creatinine, Urine 44.97 mg/dL (63-166); Protein, Urine Random Quant 171 mg/dL (1-14); Sodium, Urine Less than 20 mmol/L (Not Available)
[2019-07-25] MEDS: Acetaminophen 325 MG TAB PO PRN ×2 (13:43→17:47)
--- NOTE | 2019-07-25 13:44 | PDOC.HOSPP ---
- Subjective Encounter Date: 07/25/19 Subjective: NEUROLOGY PROGRESS NOTE Patient awake, alert and complains of abdominal pain. - Objective Vital Signs & Weight: Vital Signs (12 hours) Temp Pulse Resp BP BP BP BP 07/25/19 13:02 140/62 07/25/19 12:43 97.7 F 88 22 H 186/80 H 07/25/19 11:53 69 187/84 H 07/25/19 11:00 97.4 F L 71 16 187/81 H 07/25/19 07:47 98 F 70 18 169/74 H 07/25/19 06:31 97.8 F 77 22 H 163/69 H 07/25/19 04:14 186/81 H 07/25/19 04:00 98.5 F 64 20 186/81 H Pulse Ox 07/25/19 13:02 07/25/19 12:43 98 07/25/19 11:53 07/25/19 11:00 99 07/25/19 07:47 97 07/25/19 06:31 96 07/25/19 04:14 07/25/19 04:00 98 Weight Weight 235 lb 8 oz I&O: 07/24/19 07/25/19 07/26/19 06:59 06:59 06:59 Intake Total 300 Balance 300 Result Diagrams: 07/25/19 04:37 07/25/19 08:22 Radiology Reviewed by me: Yes EKG Reviewed by me: Yes Hospitalist ROS - Review of Systems Constitutional: denies: fever, chills, sweats, weakness, malaise, other Eyes: denies: pain, vision change, conjunctivae inflammation, eyelid inflammation, redness, other ENT: denies: ear pain, ear discharge, nose pain, nose discharge, nose congestion , mouth pain, mouth swelling, throat pain, throat swelling, other Respiratory: denies: cough, dry, shortness of breath, hemoptysis, SOB with excertion, pleuritic pain, sputum, wheezing, other Cardiovascular: denies: chest pain, palpitations, orthopnea, paroxysmal noc. dyspnea, edema, light headedness, other Gastrointestinal: reports: abdominal pain. denies: nausea, vomiting, diarrhea, constipation, melena, hematochezia, other Genitourinary: denies: dysuria, frequency, incontinence, hematuria, retention, other Musculoskeletal: denies: neck pain, shoulder pain, arm pain, back pain, hand pain, leg pain, foot pain, other Skin: denies: rash, lesions, hortencia, bruising, other Neurological: denies: weakness, numbness, incoordination, change in speech, confusion, seizures, other - Medication Medications: Active Medications Generic Name Dose Route Start Last Admin Trade Name Freq PRN Reason Stop Dose Admin Acetaminophen 650 mg 07/24/19 09:15 07/24/19 18:31 Tylenol PO 650 mg Q4H PRN Administration Headache/Fever/Mild Pain (1-3) Al Hydroxide/Mg Hydroxide 30 ml 07/24/19 23:07 07/25/19 07:43 Maalox PO 30 ml Q4H PRN Administration Indigestion Aspirin 81 mg 07/25/19 09:00 07/25/19 08:19 Aspirin Chewable PO 81 mg DAILY JAMES Administration Atorvastatin Calcium 40 mg 07/24/19 21:00 07/24/19 21:14 Lipitor PO 40 mg HS JAMES Administration Calcium Carbonate 1,000 mg 07/24/19 16:32 07/24/19 21:12 Tums PO 1,000 mg Q4H PRN Administration Heartburn or Indigestion Cholecalciferol 1,000 units 07/25/19 09:00 07/25/19 08:18 Vitamin D3 PO 1,000 units DAILY JAMES Administration Cyanocobalamin 1,000 mcg 07/25/19 09:00 07/25/19 08:19 Vitamin B-12 PO 1,000 mcg DAILY JAMES Administration Furosemide 40 mg 07/25/19 09:00 07/25/19 08:19 Lasix PO 40 mg DAILY JAMES Administration Hydralazine HCl 10 mg 07/25/19 09:54 07/25/19 11:53 Apresoline SLOW IVP 10 mg Q4H PRN Administration Hypertension Lisinopril 5 mg 07/24/19 21:00 07/25/19 08:18 Zestril PO 5 mg BID JAMES Administration Magnesium Hydroxide 30 ml 07/25/19 09:53 07/25/19 10:37 Milk Of Magnesium PO 30 ml DAILYPRN PRN Administration Constipation Magnesium Oxide 400 mg 07/24/19 21:00 07/24/19 21:14 Magnesium Oxide PO 400 mg HS JAMES Administration Nitroglycerin 0.4 mg 07/24/19 09:30 07/25/19 12:58 Nitrostat SL 0.4 mg Q5MIN JAMES Administration Pantoprazole Sodium 40 mg 07/24/19 21:00 07/25/19 08:20 Protonix PO 40 mg BID JAMES Administration Senna/Docusate Sodium 2 tab 07/24/19 20:50 07/24/19 21:12 Senokot S PO 2 tab BIDPRN PRN Administration Constipation Tamsulosin HCl 0.4 mg 07/24/19 21:00 07/24/19 21:13 Flomax PO 0.4 mg HS JAMES Administration Timolol Maleate 1 drop 07/24/19 21:00 07/25/19 08:20 Timoptic 0.5% Ophth Soln EA EYE 1 drop BID JAMES Administration - Exam General Appearance: awake alert Eye: PERRL ENT: normocephalic atraumatic Neck: supple Heart: RRR Respiratory: CTAB Gastrointestinal: soft Extremities: no cyanosis, no clubbing, no edema Skin: normal turgor, no lesions, no rashes Neurological: cranial nerve grossly intact, normal sensation to touch, no weakness, no focal deficits, no new deficit Musculoskeletal: normal tone, normal strength, no muscle wasting Psychiatric: normal affect, normal behavior, oriented to person, oriented to place Hosp A/P (1) Altered mental status Code(s): R41.82 - ALTERED MENTAL STATUS, UNSPECIFIED Status: Acute (2) TIA (transient ischemic attack) Code(s): G45.9 - TRANSIENT CEREBRAL ISCHEMIC ATTACK, UNSPECIFIED Status: Acute (3) Iron deficiency anemia Code(s): D50.9 - IRON DEFICIENCY ANEMIA, UNSPECIFIED Status: Acute (4) Atrial fibrillation Code(s): I48.91 - UNSPECIFIED ATRIAL FIBRILLATION Status: Acute - Plan PT/OT, speech therapy 89 year old with altered mental status and concern for TIA. He does have risk factors for stroke. MRI Brain reviewed which was negative for acute intracranial pathology. 2 d Echo and carotid Dopplers were unremarkable. Continue ASA and statin for secondary stroke prevention. Neuro checks every 4 hours. PT/OT/Speech Telemetry Continue home medications. Continue medical management per primary team. Recoomend EEG if confusion does not resolve
[2019-07-25 14:07] LABS: Troponin I 0.026 ng/mL (< 0.028)
[2019-07-25] MEDS ORDERED: Bisacodyl 10 MG SUPP PR SCH (14:33)
--- NOTE | 2019-07-25 15:47 | PRG ---
DATE OF SERVICE: 07/25/2019 SUBJECTIVE: Mr. Johnson main complaint is abdominal pain. He has also had shoulder blades. OBJECTIVE: VITAL SIGNS: His blood pressure 140/60, pulse 80 and it is regular. LUNGS: Clear. CARDIAC: Normal S1, normal S2. ABDOMEN: Soft, nontender. EXTREMITIES: Minimal edema. PERTINENT LABORATORY DATA: Sodium is still low at 124 he still feels somewhat confused. Iron levels low 23, ferritin level extremely low 8.4, hemoglobin is 10.9. ASSESSMENT: 1. Iron deficiency with mild iron deficiency anemia. 2. Recent black stools thought to be related to GI blood loss. 3. Abdominal pain. 4. Confusion, disorientation of uncertain etiology, so this could be related to the hyponatremia. 5. Previous abdominal pain about a year and a half ago in October 2017, thought to be related to cholecystitis. PLAN: 1. Hold furosemide. 2. Increase lisinopril. 3. We will replete iron intravenously, difficult situation, really cannot be anticoagulated. We have started him on low-dose of anti-platelet drug in the form of aspirin in view of the underlying coronary artery disease, difficult situation. We will continue to follow with you. The patient had undergone cardiac catheterization in October 2017, had a 2-vessel coronary disease, 100% right coronary filling via collaterals from the left, 80% diagonal with a small to medium size vessel, medical therapy being appropriate treatment. Job ID: [id number]
[2019-07-25] MEDS ORDERED: Iron, Sodium Ferric Gluconate 250 MG in Sodium Chloride 0.9% 100 ML IVPB SCH ×2 (16:00→21:00)
--- NOTE | 2019-07-25 16:12 | CON ---
DATE OF CONSULTATION: 07/25/2019 SERVICE: Nephrology. REASON FOR CONSULTATION: Hyponatremia. REQUESTING PHYSICIAN: . CHIEF COMPLAINT: Altered mental status. HISTORY OF PRESENT ILLNESS: An 89-year-old male patient with known history of coronary artery disease, atrial fibrillation, and iron-deficiency anemia, who was admitted on transfer from [facility] in [place]. The patient had reportedly developed acute confusional state associated with inappropriate behavior. He was subsequently taken to the ER in [place] where he was evaluated with CT scan of the brain which was unremarkable. He was subsequently brought over here for further evaluation and treatment. Of note, in the ER in [place], the patient was found to have sodium of 132. For unclear reason, the patient received 2 L of normal saline while in the ER before transfer over here. Mental status has improved and the patient seems to be at baseline. He was, however, found to have acute drop in sodium from 132 yesterday to 122 today necessitating Nephrology consult. The patient also complained of upper abdominal pain, especially on drinking or eating. He reported history of gastritis which got worse with ingestion of NSAIDs, hence he was taken off NSAIDs. The patient also reported use of Tylenol PM intermittently and admitted to using a dose of this the night prior to presentation. He also reported an episode of urinary tract infection associated with confusion about a year ago, but during this period, urinalysis was unremarkable. The patient denied shortness of breath, dysuria, hematuria, hematemesis, nausea, hematochezia, chest pain, focal weakness, but admitted to leg swelling. PAST MEDICAL HISTORY: 1. AFib. 2. Coronary artery disease, status post stent placement. 3. Hypertension. 4. Hyperlipidemia. 5. Diverticulosis. 6. Iron deficiency anemia. 7. Osteoarthritis. 8. BPH. PAST SURGICAL HISTORY: Cardiac catheterization. FAMILY HISTORY: Reviewed, but noncontributory. SOCIAL HISTORY: The patient is a former smoker and alcohol drinker, but has quit for more than 10 years ago. Currently lives with spouse. Denied recreational drug use. ALLERGIES: HYDROCODONE, PENICILLIN, AND FLUORESCEIN. HOME MEDICATIONS: 1. Nitroglycerin 0.4 mg sublingual q.5 p.r.n. 2. . 3. Amlodipine 5 mg p.o. daily. 4. Lipitor 40 mg p.o. daily at bedtime. 5. Cholecalciferol 1000 units daily. 6. Cyanocobalamin 1000 mcg p.o. daily. 7. Furosemide 40 mg p.o. daily. 8. Magnesium oxide 400 mg p.o. daily at bedtime. 9. MiraLAX 17 g p.o. daily. 10. Flomax 0.4 mg p.o. daily. 11. Timolol eyedrop both eyes b.i.d. 12. Aspirin 81 mg p.o. daily. 13. Lisinopril 5 mg p.o. b.i.d. 14. Protonix 40 mg p.o. b.i.d. REVIEW OF SYSTEMS: A 12-point review of system performed was negative other than pertinent positives and negatives included in the history of present illness. PHYSICAL EXAMINATION: VITAL SIGNS: Temperature 97.4, pulse 71, respiratory rate 16, SpO2 of 99% on room air, blood pressure is 187/81. GENERAL: Obese elderly male, in no obvious distress. Afebrile. Anicteric. Acyanotic. HEENT: Normocephalic, atraumatic. Oral mucosa is moist. NECK: Supple with no JVD. CARDIOVASCULAR: Regular rhythm and rate with normal heart sounds 1 and 2. Soft systolic murmur noted. RESPIRATORY: Fair air entry bilateral with few transmitted breath sounds, but no overt crackles or rhonchi or use of accessory muscles. GI: Obese, soft, nontender, nondistended with normal bowel sounds. EXTREMITIES: Moderate bilateral leg edema noted. No erythema appreciated. DIALER: Conscious, alert, oriented x3 with appropriate mental status. Cranial nerves 2 through 12 are grossly intact. The patient moves all extremities. DIAGNOSTIC DATA: CBC today showed WBC count of 11.7, hemoglobin of 10.9, MCV of 74.8, and platelets of 269. CMP today showed sodium of 122, potassium 4.0, chloride 89, CO2 of 27, BUN 15, creatinine 0.9, glucose 176, calcium 8.5. Iron chemistry showed serum iron of 23, TIBC of 365, and ferritin of 8.42. Of note, CMP performed on July [address] [facility] showed sodium of 132. Urinalysis performed at [facility] on July 24, 2019, was only significant for proteinuria with urine protein more than 300 mg/dL. Microscopy was not consistent with UTI. Brain MRI performed on July 24, 2019, showed atrophy and chronic white matter ischemic changes with no evidence of acute infarct or other acute processes. Echocardiogram performed on July 23 showed technically difficult examination with EF visually estimated at 55% to 60%. Left atrium is [id number] dilated with mild mitral regurgitation and mild tricuspid regurgitation. ASSESSMENT: 1. Acute hyponatremia: Plasma sodium dropped from 132 yesterday to 122. The patient received 2 L of normal saline yesterday while in the ER in [place]. 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 At presentation at [place], sodium was low at 132, and review of medical record here showed the patient has had intermittent hyponatremia here, but the most recent sodium level was 138 on April 18, 2019. Despite acute drop in sodium, acute confusion has resolved and the patient seems to be back to baseline. MRI also is unremarkable for acute infarct. 2. Acute confusional state: Etiology is unclear. TIA is considered. Medication induced acute confusion is a concern. The patient reportedly takes Tylenol PM or related substance as needed and reportedly took one the night prior to onset of symptoms. Hyponatremia unlikely is related to this event as at the time of presentation, sodium was 132, and now symptoms are pretty much resolved, sodium is 122. 3. Proteinuria: The patient had proteinuria on urinalysis with protein more than 300 mg/dL. 4. Bilateral leg edema: Most likely due to CHF from fluid overload. The patient received 2 L of normal saline yesterday. Association of bilateral leg edema and proteinuria is concerning for glomerulonephritis. Creatinine, however, is preserved. 5. Chronic anemia. 6. Iron deficiency anemia: Etiology is unclear. GI bleed remains a concern. PLAN: 1. We will start fluid restriction at 1200 mL/h. We will also give the patient some salt tablets given acute drop in plasma sodium. We will also get urine and plasma osmolality as well as urine sodium and urine protein/creatinine ratio to quantify proteinuria. 2. We will defer hypertension management to primary attending and Urology. 3. Further treatment to follow depending on hospital course. Many thanks for involving us in the care of this patient. We will follow along with you. Job ID: [id number]
[2019-07-25 18:26] LABS: Troponin I 0.038 ng/mL (< 0.028)
--- NOTE | 2019-07-25 20:30 | CON ---
DATE OF CONSULTATION: 07/25/2019 REASON FOR CONSULTATION: Abdominal pain and iron deficiency anemia. HISTORY OF PRESENT ILLNESS: Mr. Johnson is an 89-year-old male, who was initially admitted to the hospital two days ago with acute change in mental status and confusion at home. However, his confusion resolved with mentation at baseline soon after admission. Currently, he appears to be lucid and has good recollection of the event given his confusion episode. Reportedly, patient has significant periumbilical pain last evening. On my questioning, the patient has had a long history of recurrent diffuse pain for the last one year without any localization. The pain appears to be precipitated by eating or occurs at night that sometime wakes him up. He denies any nausea or vomiting. He denies any weight loss. The patient reports having increasing constipation with a stool once every 3 to 4 days. He was seen by Dr. Garrett last week and was started on MiraLAX. Reportedly, he had a colonoscopy in 2010 with polyps removed. In reviewing of his prior records in [facility], he was admitted with abdominal pain in 2018, at which time both CT and ultrasound showed evidence of cholecystitis with thickening of gallbladder wall and pericholecystic fluid. However, his pain resolved and surgery was not needed. His current pain is different from his previous pain that was thought to be from cholecystitis. Currently, his main complaint is constipation. PAST MEDICAL HISTORY: 1. Coronary artery disease, status post PTCA and stent placement. 2. Atrial fibrillation, known sinus rhythm. 3. Hypertension. 4. Hyperlipidemia. 5. Degenerative joint disease. 6. Benign prostatic hypertrophy. 7. History of anemia. 8. History of colon polyps, reportedly last colonoscopy in 2010. SOCIAL HISTORY: The patient is . He has no tobacco or alcohol usage presently. The patient is a retired public accountant. FAMILY HISTORY: Negative for any known GI problem, liver disease, or GI malignancy. ALLERGIES: INCLUDE HYDROCODONE, PENICILLIN, AND FLUORESCEIN. MEDICATIONS: At home include: 1. Amlodipine. 2. Aspirin 81 mg daily. 3. Atorvastatin. 4. Furosemide. 5. Lisinopril. 6. Nitrostat. 7. Pantoprazole. 8. Tamsulosin. 9. Timolol eyedrops. REVIEW OF SYSTEMS: Ten-point review of systems did not show any other pertinent positives or negatives. PHYSICAL EXAMINATION: VITAL SIGNS: Temperature 97.7, blood pressure 186/80, pulse of 88. GENERAL: He is alert, conversant, does not appear in any distress. HEENT: Head exam shows anicteric sclerae. Oropharynx is clear and moist. NECK: Supple. No adenopathy. CV: Shows normal S1, S2. Regular rate and rhythm. CHEST: Shows breath sounds. ABDOMEN: Protuberant, but no tympany. No distention. He has active bowel sounds diffusely. No palpable mass or organomegaly, but these are difficult to assess secondary to size. He has no illicit tenderness. EXTREMITIES: Shows no edema. LABORATORY DATA: WBCs 11.7, hemoglobin 10.9, and platelet count of 269. Sodium 124, potassium 4.3, chloride 91, CO2 of 25, creatinine 0.94. Ferritin of 8.42, TIBC of 365, serum iron 23. ASSESSMENT: 1. One year history of recurrent diffuse nonlocalized abdominal pain that appears to be worse at night. The patient also reports same pain after eating. Etiology of pain is unlikely. He did have radiographic evidence of cholecystitis in 2018, but with resolution of clinical symptoms. His current pain is not suggestive of gallbladder biliary disease. 2. Iron deficiency anemia with ferritin of 8.4. No recent endoscopic evaluation to evaluate for any source of occult GI bleeding. 3. Acute change in mentation, resolved. Likely transient ischemic attacks. 4. Coronary artery disease. 5. History of atrial fibrillation. 6. Hypertension. 7. New onset hyponatremia. 8. Constipation. RECOMMENDATION: 1. Dulcolax suppository today and will resume MiraLAX 17 g daily. We will watch for any excessive loose stool that may worsen his electrolyte derangements. 2. Once his hyponatremia improves, we will proceed with bowel prep for diagnostic upper endoscopy and colonoscopy. 3. Bladder scan if he wakes up with abdominal pain at night to rule out any urinary retention/bladder distention. 4. We will consider CT angiogram to exclude mesenteric vascular disease if endoscopic evaluation is unremarkable as patient does relate having history of recurrent abdominal pain after eating. 5. We will follow. Job ID: [id number]
[2019-07-25] MEDS: Sodium Chloride 1 GM TAB PO SCH (21:21)
[2019-07-25] MEDS: Magnesium Oxide 400 MG TAB PO SCH (21:22)
[2019-07-25] MEDS: Atorvastatin Calcium 40 MG TAB PO SCH (21:22)
[2019-07-25] MEDS: Tamsulosin HCl 0.4 MG CAP PO SCH (21:22)
[2019-07-25 21:31] LABS: Troponin I 0.046 ng/mL (< 0.028)
[2019-07-25] MEDS: Nitroglycerin 2% Ointment 1 INCH/1 GM Packet TOP SCH (21:38)
[2019-07-25] MEDS: Calcium Carbonate 500 MG ChewTAB PO PRN (23:06)
[2019-07-26 06:06] LABS: Albumin 3.9 g/dL (3.4-4.8); Anion Gap 9 mmol/L (10-20); BUN (Urea Nitrogen) 22 mg/dL (8.4-25.7); BUN/Creatinine Ratio 21.78; Calc. Creatinine Clearance 78 mL/min (70-130); Calcium 8.3 mg/dL (7.8-10.44); Carbon Dioxide 29 mmol/L (23-31); Chloride 90 mmol/L (98-107); Estimated GFR-MDRD 70; Glucose 139 mg/dL (83-110); Phosphorus 2.7 mg/dL (2.3-4.7); Potassium 4.2 mmol/L (3.5-5.1); Sodium 124 mmol/L (136-145)
[2019-07-26] MEDS ORDERED: Furosemide 40 MG/4 ML VIAL SLOW IVP SCH (07:45)
[2019-07-26] MEDS: Timolol 0.5% Ophth Soln 5 ml Bottle EA EYE SCH ×2 (09:37→21:25)
[2019-07-26] MEDS: Sodium Chloride 1 GM TAB PO SCH ×3 (09:37→21:26)
[2019-07-26] MEDS: Polyethylene Glycol 3350 17 GM Packet PO SCH (09:39)
[2019-07-26] MEDS: Aspirin Chewable 81 MG TAB PO SCH (09:39)
[2019-07-26] MEDS: Amlodipine 10 MG TAB PO SCH (09:40)
[2019-07-26] MEDS: Lisinopril 5 MG TAB PO SCH ×2 (09:40→21:26)
[2019-07-26] MEDS: Cyanocobalamin (Vitamin B-12) 1,000 MCG TAB PO SCH (09:40)
[2019-07-26] MEDS: Nitroglycerin 2% Ointment 1 INCH/1 GM Packet TOP SCH ×2 (09:41→21:26)
[2019-07-26] MEDS: Iron, Sodium Ferric Gluconate 250 MG in Sodium Chloride 0.9% 100 ML IVPB SCH ×2 (10:36→21:27)
[2019-07-26] MEDS: Acetaminophen 325 MG TAB PO PRN (10:45)
--- NOTE | 2019-07-26 11:09 | PRG ---
DATE OF SERVICE: 07/26/2019 SERVICE: Nephrology. SUBJECTIVE: An 89-year-old male patient with multiple comorbidities, admitted with acute mental status change concerning for TIA. Nephrology is following the patient for acute hyponatremia dropping from 132 on admission to 122 the next day. Mental status has improved to baseline. An MRI of the brain was negative for acute CVA. The patient is still hemodynamically stable and currently undergoing continuous EEG. OBJECTIVE: VITAL SIGNS: Temperature 97.6, pulse 72, respiratory rate 18, SpO2 of 95% on room air, blood pressure is 182/89. I and O in the last 24 hours showed total intake of 960 with total output that is incomplete. GENERAL: Obese male, in no obvious distress. HEENT: Normocephalic, atraumatic. Oral mucosa is moist. CARDIOVASCULAR: Regular rhythm and rate with normal heart sounds 1 and 2. RESPIRATORY: Fair air entry bilaterally with few transmitted breath sounds. No use of accessory muscles appreciated. GI: Obese, soft, nontender, nondistended with normal bowel sounds. EXTREMITIES: Moderate bilateral leg edema noted. ELECTRIC SERVICEMAN: Conscious, alert, and oriented x3 with appropriate mental status. Cranial nerves 2 through 12 are grossly intact. DIAGNOSTIC DATA: Renal function panel this morning showed sodium 124, potassium 4.2, chloride 90, CO2 of 29, BUN 22, creatinine 1.01, glucose 139, calcium 8.3, phosphorus 2.7, albumin 3.9. Urine osmolality yesterday was 323 while plasma osmolality was 262. Urine electrolytes showed sodium less than 20 with urine creatinine of 44.97. Urine protein is 171 with UPC of 3.6 of protein. ASSESSMENT: 1. Acute hyponatremia: Most likely due to use of sodium chloride infusion in a patient with syndrome of inappropriate ADH secretion. Urine and plasma osmolality are consistent with inappropriate ADH secretion. There, however, seems to be other components to this as the patient has bilateral leg edema and is morbidly obese and urine sodium is less than 20, suggesting a component of appropriate ADH secretion from intravascular contraction and that of CHF exacerbation. 2. Proteinuria: Nephrotic range by UPC of 3.6. The patient also has bilateral leg edema. Creatinine is preserved at 0.9 to 1.0. 3. Iron deficiency anemia, chronic: This is concerning for GI pathology and this happening in an elderly male which is a concern for neoplastic disorder. 4. Hypertension: Control is still suboptimal. Lisinopril has been increased to 10 mg b.i.d. 5. Fluid overload with bilateral leg edema. PLAN: 1. We will continue fluid restriction at 1200 mL per 24 hours. 2. We will start salt tablet and also give a dose of Lasix to improve water diuresis. 3. We will also monitor antihypertensive and adjust dose to get adequate BP control. 4. We will get 24-hour urine collection to estimate 24-hour protein. 5. We will monitor electrolytes and replete as indicated. Further treatment to follow depending on hospital course. Job ID: [id number]
--- NOTE | 2019-07-26 12:39 | PDOC.HOSPP ---
- Subjective Encounter Date: 07/26/19 Subjective: NEUROLOGY PROGRESS NOTE Patient awake, alert and follows command appropriately. - Objective Vital Signs & Weight: Vital Signs (12 hours) Temp Pulse Resp BP BP BP Pulse Ox 07/26/19 11:53 97.5 F L 69 16 166/77 H 96 07/26/19 09:40 66 07/26/19 09:37 70 130/87 07/26/19 07:05 98.3 F 66 18 143/66 H 94 L 07/26/19 04:00 97.6 F 73 18 182/89 H 95 Weight Weight 235 lb 8 oz I&O: 07/25/19 07/26/19 07/27/19 06:59 06:59 06:59 Intake Total 300 960 Output Total 175 350 Balance 300 785 -350 Result Diagrams: 07/25/19 04:37 07/26/19 05:29 Radiology Reviewed by me: Yes EKG Reviewed by me: Yes Hospitalist ROS - Review of Systems Constitutional: denies: fever, chills, sweats, weakness, malaise, other Eyes: denies: pain, vision change, conjunctivae inflammation, eyelid inflammation, redness, other ENT: denies: ear pain, ear discharge, nose pain, nose discharge, nose congestion , mouth pain, mouth swelling, throat pain, throat swelling, other Respiratory: denies: cough, dry, shortness of breath, hemoptysis, SOB with excertion, pleuritic pain, sputum, wheezing, other Cardiovascular: denies: chest pain, palpitations, orthopnea, paroxysmal noc. dyspnea, edema, light headedness, other Gastrointestinal: denies: nausea, vomiting, abdominal pain, diarrhea, constipation, melena, hematochezia, other Genitourinary: denies: dysuria, frequency, incontinence, hematuria, retention, other Musculoskeletal: denies: neck pain, shoulder pain, arm pain, back pain, hand pain, leg pain, foot pain, other Neurological: reports: incoordination, confusion - Medication Medications: Active Medications Generic Name Dose Route Start Last Admin Trade Name Freq PRN Reason Stop Dose Admin Acetaminophen 650 mg 07/24/19 09:15 07/26/19 10:45 Tylenol PO 650 mg Q4H PRN Administration Headache/Fever/Mild Pain (1-3) Al Hydroxide/Mg Hydroxide 30 ml 07/24/19 23:07 07/25/19 17:47 Maalox PO 30 ml Q4H PRN Administration Indigestion Amlodipine Besylate 10 mg 07/26/19 09:00 07/26/19 09:40 Norvasc PO 10 mg DAILY JAMES Administration Aspirin 81 mg 07/25/19 09:00 07/26/19 09:39 Aspirin Chewable PO 81 mg DAILY JAMES Administration Atorvastatin Calcium 40 mg 07/24/19 21:00 07/25/19 21:22 Lipitor PO 40 mg HS JAMES Administration Calcium Carbonate 1,000 mg 07/24/19 16:32 07/25/19 23:06 Tums PO 1,000 mg Q4H PRN Administration Heartburn or Indigestion Cholecalciferol 1,000 units 07/25/19 09:00 07/26/19 09:39 Vitamin D3 PO 1,000 units DAILY JAMES Administration Cyanocobalamin 1,000 mcg 07/25/19 09:00 07/26/19 09:40 Vitamin B-12 PO 1,000 mcg DAILY JAMES Administration Hydralazine HCl 10 mg 07/25/19 09:54 07/25/19 11:53 Apresoline SLOW IVP 10 mg Q4H PRN Administration Hypertension Ferric Sodium Gluconate 120 mls @ 60 mls/hr 07/26/19 09:00 07/26/19 10:36 Complex 250 mg/ Sodium IVPB 07/26/19 22:59 120 mls Chloride 0900,2100 JAMES Administration Lisinopril 10 mg 07/25/19 21:00 07/26/19 09:40 Zestril PO 10 mg BID JAMES Administration Magnesium Hydroxide 30 ml 07/25/19 09:53 07/25/19 10:37 Milk Of Magnesium PO 30 ml DAILYPRN PRN Administration Constipation Magnesium Oxide 400 mg 07/24/19 21:00 07/25/19 21:22 Magnesium Oxide PO 400 mg HS [facility] Administration Nitroglycerin 0.4 mg 07/24/19 09:30 07/25/19 12:58 Nitrostat SL 0.4 mg Q5MIN JAMES Administration Nitroglycerin 1 inch 07/25/19 21:00 07/26/19 09:41 Nitro-Bid 2% Ointment TOP Not Given BID [facility] Pantoprazole Sodium 40 mg 07/24/19 21:00 07/26/19 09:40 Protonix PO 40 mg BID JAMES Administration Polyethylene Glycol 17 gm 07/26/19 09:00 07/26/19 09:39 Miralax PO 17 gm DAILY JAMES Administration Senna/Docusate Sodium 2 tab 07/24/19 20:50 07/24/19 21:12 Senokot S PO 2 tab BIDPRN PRN Administration Constipation Sodium Chloride 10 ml 07/24/19 09:14 07/26/19 09:37 Flush - Normal Saline IVF 10 ml PRN PRN Administration Saline Flush Sodium Chloride 1 gm 07/25/19 21:00 07/26/19 09:37 Sodium Chloride PO 1 gm TID JAMES Administration Tamsulosin HCl 0.4 mg 07/24/19 21:00 07/25/19 21:22 Flomax PO 0.4 mg HS JAMES Administration Timolol Maleate 1 drop 07/24/19 21:00 07/26/19 09:37 Timoptic 0.5% Ophth Soln EA EYE 1 drop BID JAMES Administration - Exam General Appearance: awake alert Eye: PERRL, anicteric sclera ENT: normocephalic atraumatic, no oropharyngeal lesions Neck: supple Heart: RRR Respiratory: CTAB Gastrointestinal: soft Extremities: no cyanosis, 1+ LE edema Skin: normal turgor Neurological: cranial nerve grossly intact, normal sensation to touch, no weakness, no focal deficits Musculoskeletal: normal tone, normal strength, no muscle wasting Psychiatric: normal affect, normal behavior, A&O x 3 Hosp A/P (1) Altered mental status Code(s): R41.82 - ALTERED MENTAL STATUS, UNSPECIFIED Status: Acute (2) TIA (transient ischemic attack) Code(s): G45.9 - TRANSIENT CEREBRAL ISCHEMIC ATTACK, UNSPECIFIED Status: Acute (3) Iron deficiency anemia Code(s): D50.9 - IRON DEFICIENCY ANEMIA, UNSPECIFIED Status: Acute (4) Atrial fibrillation Code(s): I48.91 - UNSPECIFIED ATRIAL FIBRILLATION Status: Acute - Plan 89 year old with altered mental status and concern for TIA. He does have risk factors for stroke. Altered mental status is now improved. Hyponatrmia can also contribute to AMS. EEG reviewed which was negative for seizure activity. MRI Brain reviewed which was negative for acute intracranial pathology. 2 d Echo and carotid Dopplers were unremarkable. Continue ASA and statin for secondary stroke prevention. Neuro checks every 4 hours. PT/OT/Speech Telemetry Strict control of BP and BG. Continue home medications. Continue medical management per primary team. No further recommendations from neurological stand point.
--- NOTE | 2019-07-26 14:37 | CT ---
EXAM: CT angiogram abdomen and pelvis with IV contrast and 3-D reconstructions PROVIDED CLINICAL HISTORY: Abdominal pain after eating. COMPARISON: CT abdomen and pelvis on 11/19/2017 FINDINGS: The heart is mildly enlarged. Tiny right pleural effusion is present. Atelectasis is present at each lung base. Vascular calcifications are seen in the abdominal aorta and involving the iliac arteries. There is at least mild narrowing involving the origins of each internal iliac artery and proximal left common iliac artery. Mild atherosclerotic plaque is seen involving the proximal celiac artery without signif icant narrowing. Superior mesenteric artery is patent. Vascular calcifications are present at the origin of the KOBE, but the KOBE also appears patent. Single patent right and 2 patent left renal arter ies are present. There is atherosclerotic plaque involving the mid splenic artery with mild narrowing present. A stable 1.5 cm hypodense lesion is again seen in the posterior segment right hepatic lobe. Liver oth erwise has a normal CT appearance. Splenic granulomata are seen. Mild thickening of each adrenal gland is again seen. Pancreas has a normal CT appearance. A 2.8 cm heterogeneously enhancing mass is seen at the inferior pole left kidney. Neoplasm is diagnos is of exclusion. Subcentimeter too small to characterize hypodense lesions are seen involving the right kidney. Urinary bladder has a normal CT appearance and incompletely distended. Prostate gland is mildly enlar ged measuring 5.5 cm in transverse dimensions. Fat-containing umbilical hernia is again seen with linear low-density areas present which were also p resent on prior study and could be related to minimal fluid and/or associated vessels. This is similar in size to prior study. Colonic diverticulosis is present. Small amount retained fecal material is seen throughout the colon. Loops of small bowel are normal in caliber. A retrocecal appendix is visualized and normal in caliber. There is minimal inflammatory stranding seen just anterior to the aortic bifurcation. Exact etiology uncertain this may relate to minimal edema. Degenerative changes lumbar spine are present greatest at the L2-3 level. Trace grade 1 anterolisthes is of L4 on L5 is present related to prominent facet degenerative changes. IMPRESSION: 1. Heterogeneously enhancing inferior pole left renal mass. Neoplasm is diagnosis of exclusion. Urolo gy consultation is recommended. 2. Cardiomegaly. 3. Tiny right pleural effusion. 4. Difficult to characterize hypodense lesion posterior segment right hepatic lobe, stable in size co mpared to study in 2018. 5. Colonic diverticulosis and evidence of constipation. 6. Fat-containing umbilical hernia with linear stranding or minimal amount of edema. This is a stable finding compared to study in 2018. 7. Minimal stranding anterior to the aortic bifurcation of uncertain etiology. This may related to mi nimal nonspecific edema. However, follow-up evaluation is recommended.
--- NOTE | 2019-07-26 14:47 | EEG ---
Referring Physician: Madison BANKS EEG # [id number] TEST TYPE: EXTENDED CONTINUOUS VIDEO EEG REPORT: This EEG was performed using 24 channel [employer] video digital EEG machine with 24 disc electrodes. This was an extended 2 hour 4 minutes of inpatient video EEG recording. Digital analysis of the EEG was done for spike and seizure detection which revealed no abnormalities. BACKGROUND: The posterior background rhythm is 8.5 hertz. No significant reactivity seen with eye opening and eye closure. HYPERVENTILATION: Not performed. PHOTIC STIMULATION: No significant response seen with photic stimulation. SLEEP: Drowsiness is observed. EEG DIAGNOSIS: Nonsustained posterior background rhythm. CLINICAL INTERPRETATION: THIS EEG IS CONSISTENT WITH MILD GENERALIZED NONSPECIFIC CEREBRAL DYSFUNCTION. NO ICTAL OR INTERICTAL EPILEPTIFORM ABNORMALITIES SEEN DURING THE RECORDING. Artificial Stone Applicator: SHAHEEN Salt Lifter: EEG.CAMILLE SHEPHERD
--- NOTE | 2019-07-26 15:06 | PDOC.HOSPP ---
- Subjective Encounter Date: 07/26/19 Subjective: Feeling a little better. Slept a little better. Less abdominal pain. Only had three very small BM's with miralax. - Objective Vital Signs & Weight: Vital Signs (12 hours) Temp Pulse Resp BP BP BP Pulse Ox 07/26/19 11:53 97.5 F L 69 16 166/77 H 96 07/26/19 09:40 66 07/26/19 09:37 70 130/87 07/26/19 07:05 98.3 F 66 18 143/66 H 94 L 07/26/19 04:00 97.6 F 73 18 182/89 H 95 Weight Weight 235 lb 8 oz I&O: 07/25/19 07/26/19 07/27/19 06:59 06:59 06:59 Intake Total 300 960 Output Total 175 350 Balance 300 785 -350 Result Diagrams: 07/25/19 04:37 07/26/19 05:29 Hospitalist ROS - Medication Medications: Active Medications Generic Name Dose Route Start Last Admin Trade Name Yfnq PRN Reason Stop Dose Admin Acetaminophen 650 mg 07/24/19 09:15 07/26/19 10:45 Tylenol PO 650 mg Q4H PRN Administration Headache/Fever/Mild Pain (1-3) Al Hydroxide/Mg Hydroxide 30 ml 07/24/19 23:07 07/25/19 17:47 Maalox PO 30 ml Q4H PRN Administration Indigestion Amlodipine Besylate 10 mg 07/26/19 09:00 07/26/19 09:40 Norvasc PO 10 mg DAILY JAMES Administration Aspirin 81 mg 07/25/19 09:00 07/26/19 09:39 Aspirin Chewable PO 81 mg DAILY JAMES Administration Atorvastatin Calcium 40 mg 07/24/19 21:00 07/25/19 21:22 Lipitor PO 40 mg HS JAMES Administration Calcium Carbonate 1,000 mg 07/24/19 16:32 07/25/19 23:06 Tums PO 1,000 mg Q4H PRN Administration Heartburn or Indigestion Cholecalciferol 1,000 units 07/25/19 09:00 07/26/19 09:39 Vitamin D3 PO 1,000 units DAILY JAMES Administration Cyanocobalamin 1,000 mcg 07/25/19 09:00 07/26/19 09:40 Vitamin B-12 PO 1,000 mcg DAILY JAMES Administration Hydralazine HCl 10 mg 07/25/19 09:54 07/25/19 11:53 Apresoline SLOW IVP 10 mg Q4H PRN Administration Hypertension Ferric Sodium Gluconate 120 mls @ 60 mls/hr 07/26/19 09:00 07/26/19 10:36 Complex 250 mg/ Sodium IVPB 07/26/19 22:59 120 mls Chloride 0900,2100 JAMES Administration Lisinopril 10 mg 07/25/19 21:00 07/26/19 09:40 Zestril PO 10 mg BID JAMES Administration Magnesium Hydroxide 30 ml 07/25/19 09:53 07/25/19 10:37 Milk Of Magnesium PO 30 ml DAILYPRN PRN Administration Constipation Magnesium Oxide 400 mg 07/24/19 21:00 07/25/19 21:22 Magnesium Oxide PO 400 mg HS JAMES Administration Nitroglycerin 0.4 mg 07/24/19 09:30 07/25/19 12:58 Nitrostat SL 0.4 mg Q5MIN JAMES Administration Nitroglycerin 1 inch 07/25/19 21:00 07/26/19 09:41 Nitro-Bid 2% Ointment TOP Not Given BID JAMES Pantoprazole Sodium 40 mg 07/24/19 21:00 07/26/19 09:40 Protonix PO 40 mg BID JAMES Administration Polyethylene Glycol 17 gm 07/26/19 09:00 07/26/19 09:39 Miralax PO 17 gm DAILY JAMES Administration Senna/Docusate Sodium 2 tab 07/24/19 20:50 07/24/19 21:12 Senokot S PO 2 tab BIDPRN PRN Administration Constipation Sodium Chloride 10 ml 07/24/19 09:14 07/26/19 09:37 Flush - Normal Saline IVF 10 ml PRN PRN Administration Saline Flush Sodium Chloride 1 gm 07/25/19 21:00 07/26/19 09:37 Sodium Chloride PO 1 gm TID JAMES Administration Tamsulosin HCl 0.4 mg 07/24/19 21:00 07/25/19 21:22 Flomax PO 0.4 mg HS JAMES Administration Timolol Maleate 1 drop 07/24/19 21:00 07/26/19 09:37 Timoptic 0.5% Ophth Soln EA EYE 1 drop BID JAMES Administration - Exam General Appearance: NAD, awake alert General - other findings: Obese. Heart: RRR, no murmur, no gallops, no rubs, normal peripheral pulses Respiratory: CTAB, no wheezes, no rales, no ronchi, normal chest expansion, no tachypnea, normal percussion Gastrointestinal: soft, tender to palpation (Mildly, diffusely.), distended ( mildly) Extremities: no cyanosis, no clubbing, no edema Skin: normal turgor Neurological: no focal deficits Musculoskeletal: normal tone Psychiatric: normal affect Hosp A/P (1) TIA (transient ischemic attack) Code(s): G45.9 - TRANSIENT CEREBRAL ISCHEMIC ATTACK, UNSPECIFIED Status: Acute (2) History of atrial fibrillation Code(s): Z86.79 - PERSONAL HISTORY OF OTHER DISEASES OF THE CIRCULATORY SYSTEM Status: Acute (3) Coronary artery disease Code(s): I25.10 - ATHSCL HEART DISEASE OF [place] CORONARY ARTERY W/O ANG PCTRS Status: Acute (4) Hyperlipidemia Code(s): E78.5 - HYPERLIPIDEMIA, UNSPECIFIED Status: Acute (5) BPH (benign prostatic hyperplasia) Code(s): N40.0 - BENIGN PROSTATIC HYPERPLASIA WITHOUT LOWER URINRY TRACT SYMP Status: Acute (6) Hypertension Code(s): I10 - ESSENTIAL (PRIMARY) HYPERTENSION Status: Chronic (7) Obesity (BMI 30-39.9) Code(s): E66.9 - OBESITY, UNSPECIFIED Status: Chronic (8) Hyponatremia Code(s): E87.1 - HYPO-OSMOLALITY AND HYPONATREMIA Status: Acute - Plan TIA/acute metabolic encephalopathy: Echo and carotid Dopplers were unremarkable. EEG normal. Brain MRI negative for acute findings. At this point is concerning that his symptoms may be related to rapidly decreasing sodium levels. Appears resolved. Hyponatremia: Patient has developed significant hyponatremia very rapidly. Appreciate nephrology assistance. Given diuretic today and on fluid restriction. Abdominal pain: This patient saw GI on . He is apparently had some recurrent abdominal pain that has been causing him some difficulty with sleeping at night. Dr. Garrett evaluated the patient on in the outpatient clinic. He prescribed MiraLAX and PPI. Given his current abdominal pain and iron deficiency anemia he will likely need endoscopy. Because of his electrolyte issues and cardiac history will probably need to do that while he is here in the hospital. His umbilical hernia is soft and reducible. He is not particularly tender in the right upper quadrant and nothing else suggest this would be cholecystitis. GI has ordered CT abdomen. Coronary artery disease: Continue with the patient's usual home regimen including the aspirin. Hypertension: Patient's blood pressure continues to run a bit high. He is on low-dose amlodipine and lisinopril. Lisinopril has been increased. PRN's available. History of atrial fibrillation: Again the patient had a history of transient atrial fibrillation. It resolved quickly with amiodarone. This was not continued. The patient was not placed on anticoagulation because of concerns regarding iron deficiency anemia. Cards consult appreciated. Recommended asa only.
[2019-07-26 16:03] LABS: Urine Total Volume 2700 mL (250-2400)
[2019-07-26 16:20] LABS: 24 Hr Creatinine 859.41 mg/24 hr (950-2490); Creatinine, Urine 31.83 mg/dL (63-166)
[2019-07-26 16:22] LABS: Protein - 24 Hr 2781 mg/24 hr (Less than 300); Protein, Urine 103 mg/dL (1-14)
[2019-07-26] MEDS ORDERED: Bisacodyl 10 MG SUPP PR PRN (17:09)
--- NOTE | 2019-07-26 21:16 | PRG ---
DATE OF SERVICE: 07/26/2019 SUBJECTIVE: Mr. Johnson has had recurrence of his generalized abdominal discomfort. It is not severe, but it keeps him up at night and he started back on some MiraLAX and had three or four small bowel movements. His pain does improve with bowel movement, but it does not go away. PHYSICAL EXAMINATION: VITAL SIGNS: Temperature is 97.6, pulse 78, blood pressure 196/91. GENERAL: He is in no acute distress. Alert and oriented x3. LUNGS: Clear to auscultation bilaterally. HEART: Regular rate and rhythm without murmur. ABDOMEN: Soft. Minimal tenderness without guarding. Bowel sounds are present. EXTREMITIES: No lower extremity edema. LABORATORY DATA: White blood cell count 11.7, hemoglobin 10.9, MCV 74.6, platelets 269. Ferritin is 8, creatinine 1.01. His sodium was 124 today. IMPRESSION: 1. Altered mental status. This might have been related to the hyponatremia. He is on fluid restriction now and the hyponatremia is being worked up by the Primary Service. 2. Iron deficiency anemia. We have discussed option for upper and lower endoscopy to evaluate this further. We will plan for a bowel prep when his electrolytes are little bit better sorted out. Possibly prep tomorrow for a scope on Wednesday or prep on Wednesday for scope on Wednesday depending on how he is doing from a hyponatremia standpoint. 3. Generalized abdominal pain. Complains of frequent urination, keeping him up at night along with abdominal discomfort. We will check a postvoid bladder scan. 4. CT scan of the abdomen and pelvis shows a left renal mass concerning for neoplastic lesion. Does show signs of significant stool retention consistent with constipation. His constipation still might be the primary source for his abdominal pain. RECOMMENDATIONS: 1. Continue scheduled MiraLAX. 2. Evaluation of hyponatremia per the Primary Service. 3. EGD and colonoscopy once he is okay to take the bowel prep. 4. Renal mass. We will defer this to the Primary Service/Urology. 5. Check a postvoid bladder scan this evening. Job ID: [id number]
[2019-07-26] MEDS: Magnesium Oxide 400 MG TAB PO SCH (21:26)
[2019-07-26] MEDS: Atorvastatin Calcium 40 MG TAB PO SCH (21:26)
[2019-07-26] MEDS: Tamsulosin HCl 0.4 MG CAP PO SCH (21:27)
[2019-07-26] MEDS: Calcium Carbonate 500 MG ChewTAB PO PRN (23:23)
[2019-07-26] MEDS: Melatonin 3 MG TAB PO PRN (23:23)
[2019-07-27 05:13] LABS: #Eosinphils 0.1 thou/uL (0.0-0.7); #Lymphocytes 0.8 thou/uL (1.20-3.40); #Monocytes 1.5 thou/uL (0.11-0.59); #Neutrophils 8.8 thou/uL (1.40-6.50); %Basophils 0.2 % (0.0-1.0); %Eosinophils 0.7 % (0.0-10.0); %Monocytes 13.1 % (0.0-10.0); Hemoglobin 10.6 g/dL (14.0-18.0); Mean Corpuscular HGB CONC 29.5 g/dL (32.0-36.0); Mean Corpuscular Hemoglobin 21.7 pg (27.0-31.0); Mean Corpuscular Volume 73.7 fL (78.0-98.0); Mean Platelet Volume 10.4 fL (7.4-10.4); Platelet Count 259 thou/uL (130-400); RBC Distribution Width 16.5 % (11.5-14.5); Red Blood Cell (RBC) Count 4.89 mill/uL (4.70-6.10); White Blood Cell (WBC) Count 11.2 thou/uL (4.8-10.8)
[2019-07-27 05:27] LABS: Anion Gap 9 mmol/L (10-20); BUN (Urea Nitrogen) 16 mg/dL (8.4-25.7); Calc. Creatinine Clearance 90 mL/min (70-130); Carbon Dioxide 28 mmol/L (23-31); Chloride 93 mmol/L (98-107); Estimated GFR-MDRD 83; Glucose 111 mg/dL (83-110); Potassium 3.4 mmol/L (3.5-5.1); Sodium 127 mmol/L (136-145)
[2019-07-27] MEDS ORDERED: Potassium Chloride 20 MEQ TAB PO SCH ×2 (08:15→16:00)
[2019-07-27] MEDS ORDERED: Furosemide 40 MG/4 ML VIAL SLOW IVP SCH (09:00)
[2019-07-27] MEDS: Aspirin Chewable 81 MG TAB PO SCH (09:10)
[2019-07-27] MEDS: Lisinopril 20 MG TAB PO SCH ×2 (09:10→20:10)
[2019-07-27] MEDS: Cyanocobalamin (Vitamin B-12) 1,000 MCG TAB PO SCH (09:10)
[2019-07-27] MEDS: Timolol 0.5% Ophth Soln 5 ml Bottle EA EYE SCH ×2 (09:11→20:12)
[2019-07-27] MEDS: Sodium Chloride 1 GM TAB PO SCH ×3 (09:11→20:12)
[2019-07-27] MEDS: Polyethylene Glycol 3350 17 GM Packet PO SCH (09:11)
[2019-07-27] MEDS: Nitroglycerin 2% Ointment 1 INCH/1 GM Packet TOP SCH ×2 (09:11→20:11)
--- NOTE | 2019-07-27 11:42 | PDOC.HOSPP ---
- Subjective Encounter Date: 07/27/19 Subjective: Patient is doing okay today. He has no specific complaints. Says he is aware that he has been retaining urine. Says that is been going on since his prostate radiation. Abdominal pain is substantially improved. Appears to be eating well. - Objective Vital Signs & Weight: Vital Signs (12 hours) Temp Pulse Resp BP BP Pulse Ox 07/27/19 11:25 97.5 F L 71 18 173/81 H 96 07/27/19 09:11 83 123/67 07/27/19 09:10 123/67 07/27/19 07:04 98.5 F 83 20 123/67 95 07/27/19 03:58 97.8 F 81 22 H 152/73 H 92 L 07/26/19 23:59 97.7 F 76 18 137/87 96 Weight Weight 235 lb 8 oz I&O: 07/26/19 07/27/19 07/28/19 06:59 06:59 06:59 Intake Total 960 Output Total 175 1375 Balance 785 -1375 Result Diagrams: 07/27/19 04:41 07/27/19 04:41 Hospitalist ROS - Medication Medications: Active Medications Generic Name Dose Route Start Last Admin Trade Name Freq PRN Reason Stop Dose Admin Acetaminophen 650 mg 07/24/19 09:15 07/26/19 10:45 Tylenol PO 650 mg Q4H PRN Administration Headache/Fever/Mild Pain (1-3) Al Hydroxide/Mg Hydroxide 30 ml 07/24/19 23:07 07/25/19 17:47 Maalox PO 30 ml Q4H PRN Administration Indigestion Amlodipine Besylate 10 mg 07/26/19 09:00 07/26/19 09:40 Norvasc PO 10 mg DAILY JAMES Administration Aspirin 81 mg 07/25/19 09:00 07/27/19 09:10 Aspirin Chewable PO 81 mg DAILY JAMES Administration Atorvastatin Calcium 40 mg 07/24/19 21:00 07/26/19 21:26 Lipitor PO 40 mg HS JAMES Administration Calcium Carbonate 1,000 mg 07/24/19 16:32 07/26/19 23:23 Tums PO 1,000 mg Q4H PRN Administration Heartburn or Indigestion Cholecalciferol 1,000 units 07/25/19 09:00 07/27/19 09:10 Vitamin D3 PO 1,000 units DAILY JAMES Administration Cyanocobalamin 1,000 mcg 07/25/19 09:00 07/27/19 09:10 Vitamin B-12 PO 1,000 mcg DAILY JAMES Administration Furosemide 40 mg 07/27/19 09:00 07/27/19 09:11 Lasix SLOW IVP 40 mg DAILY JAMES Administration Hydralazine HCl 10 mg 07/25/19 09:54 07/25/19 11:53 Apresoline SLOW IVP 10 mg Q4H PRN Administration Hypertension Lisinopril 20 mg 07/27/19 09:00 07/27/19 09:10 Zestril PO 20 mg BID JAMES Administration Magnesium Hydroxide 30 ml 07/25/19 09:53 07/25/19 10:37 Milk Of Magnesium PO 30 ml DAILYPRN PRN Administration Constipation Magnesium Oxide 400 mg 07/24/19 21:00 07/26/19 21:26 Magnesium Oxide PO 400 mg HS JAMES Administration Melatonin 3 mg 07/26/19 22:40 07/26/19 23:23 Melatonin PO 3 mg HS PRN Administration Insomnia Nitroglycerin 0.4 mg 07/24/19 09:30 07/25/19 12:58 Nitrostat SL 0.4 mg Q5MIN JAMES Administration Nitroglycerin 1 inch 07/25/19 21:00 07/27/19 09:11 Nitro-Bid 2% Ointment TOP 1 inch BID JAMES Administration Pantoprazole Sodium 40 mg 07/24/19 21:00 07/27/19 09:10 Protonix PO 40 mg BID JAMES Administration Polyethylene Glycol 17 gm 07/26/19 09:00 07/27/19 09:11 Miralax PO 17 gm DAILY JAMES Administration Senna/Docusate Sodium 2 tab 07/24/19 20:50 07/24/19 21:12 Senokot S PO 2 tab BIDPRN PRN Administration Constipation Sodium Chloride 10 ml 07/24/19 09:14 07/26/19 21:38 Flush - Normal Saline IVF 10 ml PRN PRN Administration Saline Flush Sodium Chloride 1 gm 07/25/19 21:00 07/27/19 09:11 Sodium Chloride PO 1 gm TID JAMES Administration Tamsulosin HCl 0.4 mg 07/24/19 21:00 07/26/19 21:27 Flomax PO 0.4 mg HS JAMES Administration Timolol Maleate 1 drop 07/24/19 21:00 07/27/19 09:11 Timoptic 0.5% Ophth Soln EA EYE 1 drop BID JAMES Administration - Exam General Appearance: NAD, awake alert General - other findings: Obese Heart: RRR, no murmur, no gallops, no rubs, normal peripheral pulses Respiratory: CTAB, no wheezes, no rales, no ronchi, normal chest expansion, no tachypnea, normal percussion Gastrointestinal: soft, non-tender, non-distended, normal bowel sounds, no palpable masses, no hepatomegaly, no splenomegaly, no bruit Extremities: no cyanosis, no clubbing, no edema Skin: normal turgor Psychiatric: normal affect, normal behavior, A&O x 3 Hosp A/P (1) TIA (transient ischemic attack) Code(s): G45.9 - TRANSIENT CEREBRAL ISCHEMIC ATTACK, UNSPECIFIED Status: Acute (2) History of atrial fibrillation Code(s): Z86.79 - PERSONAL HISTORY OF OTHER DISEASES OF THE CIRCULATORY SYSTEM Status: Acute (3) Coronary artery disease Code(s): I25.10 - ATHSCL HEART DISEASE OF [place] CORONARY ARTERY W/O ANG PCTRS Status: Acute (4) Hyperlipidemia Code(s): E78.5 - HYPERLIPIDEMIA, UNSPECIFIED Status: Acute (5) BPH (benign prostatic hyperplasia) Code(s): N40.0 - BENIGN PROSTATIC HYPERPLASIA WITHOUT LOWER URINRY TRACT SYMP Status: Acute (6) Hypertension Code(s): I10 - ESSENTIAL (PRIMARY) HYPERTENSION Status: Chronic (7) Obesity (BMI 30-39.9) Code(s): E66.9 - OBESITY, UNSPECIFIED Status: Chronic (8) Hyponatremia Code(s): E87.1 - HYPO-OSMOLALITY AND HYPONATREMIA Status: Acute (9) Urinary retention Code(s): R33.9 - RETENTION OF URINE, UNSPECIFIED Status: Acute (10) History of prostate cancer Code(s): Z85.46 - PERSONAL HISTORY OF MALIGNANT NEOPLASM OF PROSTATE Status: Acute - Plan TIA/acute metabolic encephalopathy: Echo and carotid Dopplers were unremarkable. EEG normal. Brain MRI negative for acute findings. At this point is concerning that his symptoms may be related to rapidly decreasing sodium levels. Appears resolved. Hyponatremia: Patient has developed significant hyponatremia very rapidly. Appreciate nephrology assistance. Given diuretic today and on fluid restriction. Much improved. Sodium is up to 127 today. Abdominal pain: This patient saw GI as an outpatient a couple of days prior to his admission. He is apparently had some recurrent abdominal pain that has been causing him some difficulty with sleeping at night. He was prescribed MiraLAX and PPI. Given his current abdominal pain and iron deficiency anemia he will likely need endoscopy. Because of his electrolyte issues and cardiac history will probably need to do that while he is here in the hospital. Currently the plan is to do a bowel prep tomorrow and endoscopy on Wednesday. This is primarily to allow his sodium to continue to improve prior to the bowel prep. His umbilical hernia is soft and reducible. Renal mass: Discussed the case with urology. The mass is probably a little too big to consider cryo therapy. It is in the parenchyma of the kidney and not exophytic. Would likely be a bit of a complicated surgery. Patient has a urologist who has been following him for his prior prostate cancer. Currently the recommendation is to consider repeat imaging in about 6 months. coronary artery disease: Continue with the patient's usual home regimen including the aspirin. Hypertension: Patient's blood pressure continues to run a bit high but improved. His amlodipine has been discontinued and that appears to have improved his lower extremity edema. May improve his constipation issues as well. His BISI inhibitor has been increased. We will continue to monitor. History of atrial fibrillation: Again the patient had a history of transient atrial fibrillation. It resolved quickly with amiodarone. This was not continued. The patient was not placed on anticoagulation because of concerns regarding iron deficiency anemia. Cards consult appreciated. Recommended asa only.
--- NOTE | 2019-07-27 14:20 | PRG ---
DATE OF SERVICE: 07/27/2019 REASON FOR CONSULTATION: Iron deficiency anemia, chronic abdominal pain. SUBJECTIVE: Over the last 24 to 48 hours, the patient has been having improved mental status with increasing serum sodium. He also states today that he has had significant improvement of his generalized abdominal pain with minimal pain today when compared to pain that he was experiencing on admission. He has had one small volume semi-solid stool today as well with no difficulty with defecation. Currently, he denies any nausea, vomiting, fevers, chills, hematemesis, melena, hematochezia, dysphagia, or odynophagia. OBJECTIVE: VITAL SIGNS: Temperature 97.5, pulse 71, blood pressure 173/81, respiratory rate 18, saturating 96% on room air. GENERAL: The patient was lying in bed, in no acute distress. Alert and oriented x4. CARDIOVASCULAR: Regular rate and rhythm. RESPIRATORY: Clear to auscultation bilaterally. ABDOMEN: Normoactive bowel sounds. Soft, nondistended. Mild tenderness to palpation in the right lower quadrant. EXTREMITIES: No cyanosis, clubbing, or edema. LABORATORY DATA: CBC with a white blood cell count of 11.2, hemoglobin 10.6, hematocrit 36, platelets 259. Chemistry with a sodium of 127, potassium of 3.4, chloride 93, CO2 of 28, BUN 16, creatinine 0.87, and glucose 111. IMAGING DATA: CT of the abdomen and pelvis was obtained on July 26, 2019, which showed mild cardiomegaly as well as a small right pleural effusion. There was mild narrowing involving the origin of the internal iliac artery and proximal left common iliac artery as well as vascular calcifications seen within the abdominal aorta. The superior mesenteric artery was patent, but vascular calcifications were seen at the origin of the inferior mesenteric artery, but it did also appear patent. A stable 1.5 cm hypodense lesion was again seen in the right hepatic lobe, which is unchanged in size when compared to imaging from 2018. A 2.8 cm heterogenously enhancing mass was seen at the inferior pole of the left kidney with possible neoplastic process on the differential. A small fat containing umbilical hernia was also seen, but no evidence of incarceration and stable when compared to imaging from 2018. Colonic diverticulosis was also seen throughout the colon as well as retained fecal material. ASSESSMENT AND PLAN: The patient is an 89-year-old male with past medical history of coronary artery disease status post stent placement, atrial fibrillation, hypertension, hyperlipidemia, DJD, BPH, history of colonic polyps with the last colonoscopy performed in 2010, and anemia, presenting with increased generalized abdominal pain and iron deficiency anemia. Iron deficiency anemia: The patient is presenting with a history of chronic anemia, but on this admission was noted to have a small decrease when compared to his baseline. Further testing/characterization of his anemia showed a ferritin of approximately 8.4, consistent with an iron deficiency anemia. He currently denies any evidence of overt gastrointestinal bleeding including hematemesis, melena, or hematochezia. However, with his increased abdominal pain, it is concerning for a possible gastrointestinal origin. However, this is further complicated by his significant hyponatremia and altered mental status on admission, which is currently being managed and slowly up trending. At this time, prior to endoscopic evaluation, I would recommend further correction of his sodium prior to institution of deep sedation medications and/or GoLYTELY which could potentially cause fluid shifts resulting in electrolyte abnormalities. Recommendations: 1. We would continue with management of his hyponatremia prior to endoscopic evaluation. We would like the serum sodium higher prior to initiation of GoLYTELY. 2. We would continue to trend his hemoglobin and hematocrit and transfuse as necessary to maintain hemoglobin and hematocrit of 7/21. 3. We would continue to monitor clinically for signs of active gastrointestinal bleeding. 4. We would place the patient on a diet today and place him on a clear liquid diet tomorrow with a tentative plan to proceed with EGD and colonoscopy on Wednesday if his sodium is up trending. 5. We would proceed with GoLYTELY prep tomorrow, given his significant cardiac history. Generalized abdominal pain: During the course of this admission with increased urination and bowel movements, the patient has had significant improvement in his generalized abdominal pain. At this point, the etiology for his abdominal pain is unclear, but could be due to either a urinary or colonic origin. Recommendations: We will continue with current bowel regimen and evaluation of possible renal mass. We will continue to follow. Please call with any questions. Job ID: [id number]
--- NOTE | 2019-07-27 14:46 | PRG ---
DATE OF SERVICE: 07/27/2019 SERVICE: Nephrology. SUBJECTIVE: An 89-year-old male seen in followup for hyponatremia and volume overload. The patient was admitted due to acute mental status change, which has improved. He was also found to have hyponatremia that developed after presentation associated with bilateral leg edema. Reports feeling better. The patient also was found to have renal mass incidentally found during evaluation for abdominal pain. OBJECTIVE: VITAL SIGNS: Temperature 98.5, pulse 83, respiratory rate 20, SpO2 of 95% on room air, blood pressure is 123/67. I and O in the last 24 hours showed total intake was not documented, but total output was 1375. GENERAL: Obese male, in no obvious distress. Afebrile. Anicteric. Acyanotic. HEENT: Normocephalic, atraumatic. Oral mucosa is mildly dry. CARDIOVASCULAR: Regular rhythm and rate with normal heart sounds 1 and 2. Soft systolic murmur noted. RESPIRATORY: Fair air entry bilaterally with few bibasilar crackles posteriorly. No obvious rhonchi or use of accessory muscles appreciated. GI: Obese, soft, nontender, nondistended with normal bowel sounds. EXTREMITIES: Mild bilateral leg edema noted with no erythema. BIOMEDICAL ENGINEERING TECHNOLOGIST: Conscious, alert, oriented x3 with appropriate mental status. Cranial nerves 2 through 12 are grossly intact. DIAGNOSTIC DATA: BMP showed sodium 127, potassium 3.4, chloride 93, CO2 of 28, BUN 16, creatinine 0.87, glucose 111, calcium 8.0. 24-hour urine collection showed total protein of 2781. Total urine collected was 2700 mL and urine creatinine concentration was 31.83 mg/dL. ASSESSMENT: 1. Hyponatremia: This is thought to be due to syndrome of inappropriate antidiuretic hormone secretion related to volume overload and congestive heart failure. The patient with prior history of found to have renal mass, which is concerning for neoplasm. Plasma sodium is trending up with diuretics and salt tablets. Of note, the patient with sodium of 132 on presentation. Developed acute hyponatremia from 132 to 122 overnight after treatment with normal saline. Note that on presentation, sodium was 132 with acute drop subsequently, by which time mental status change has resolved. 2. Proteinuria: Etiology is unclear, but seems to be related to and volume overload. Occult glomerulonephritis cannot be ruled out. The patient also is on amlodipine, which could cause proteinuria. Also, the patient is obese and could have obesity hyperfiltration. 3. Hypertension: Control is fair. 4. Volume overload: Improving with Lasix. 5. Acute mental status change: Resolved. PLAN: 1. We will continue salt tablets as well as IV Lasix. 2. We will discontinue amlodipine in view of bilateral leg edema and proteinuria. 3. We will increase lisinopril from 10 mg p.o. b.i.d. to 20 mg p.o. b.i.d. this will help both the blood pressure and proteinuria. 4. We will recheck electrolytes and monitor intake and output. 5. Further treatment to follow depending on hospital course. Evaluation and treatment of renal mass as per Urology. Job ID: [id number]
[2019-07-27] MEDS: Acetaminophen 325 MG TAB PO PRN ×2 (14:53→20:13)
[2019-07-27] MEDS: Calcium Carbonate 500 MG ChewTAB PO PRN ×2 (14:54→20:13)
--- NOTE | 2019-07-27 14:55 | CON ---
DATE OF CONSULTATION: 07/27/2019 HISTORY: This is an 89-year-old man, who was admitted I think on transfer from [place] on the , today is the . He was admitted with altered mental status. He may have had a small stroke or TIA. Neurology has seen him. Cardiology has seen him. He has been admitted by the hospitalist. It sounds like his workups have been negative so far. He was having some abdominal pain. He had a CT of the abdomen and pelvis done that showed a small lower pole left intrarenal lesion that appears suspicious for potentially renal cell carcinoma. It was 2.8 cm in size. He did not have any adenopathy noted. I have been asked to see him because of this. His white count is normal. His hemoglobin is 10.6, it is stable since he got here. Platelet count is normal. His creatinine is normal at 0.87. He is hyponatremic and that is being corrected by Nephrology. On talking with him, he has a history of prostate cancer. He was initially seen by with a PSA around 16. At least 10 to 12 years ago, he underwent radiation therapy. His last PSA which was early this year was, I think in the 2 range. He has been seeing Dr. Mercado for that since. He has lower urinary tract symptoms consisting mainly of frequency and nocturia. He is not having infections. He is not having any gross hematuria, not having dysuria, just nocturia about every hour and daytime frequency about every hour. He takes tamsulosin because it does help him some to take it. He did not know anything about this renal mass, so he either has not had upper tract studies in the recent past or if it was, this was too small at that time to notice it. I have reviewed his CAT scan already. I talked with him about the findings of it. He is an 89-year-old male. He is very overweight. He has some significant health issues. Going after this tumor surgery today, I think it would pose him some significant risks. It is not something I am currently doing in my practice. I am not sure if Dr. Mercado is doing, but you could talk with him about it. Often would refer patients to [facility] if they wish to pursue these. I think in his case the choice is going to have to be whether or not have him pursue treatment for this or just to follow it up in 6 [address] with a repeat CT scan and see if it is changing or not. We will leave this up to Dr. Mercado as he already has established care with him. He is in agreement with this and he will contact Dr. Mercado after his discharge. I have asked Dr. Hull, the hospitalist, to make sure a copy of his discharge goes to Dr. Mercado. Job ID: [id number]
[2019-07-27] MEDS: Atorvastatin Calcium 40 MG TAB PO SCH (20:10)
[2019-07-27] MEDS: Magnesium Oxide 400 MG TAB PO SCH (20:10)
[2019-07-27] MEDS: Tamsulosin HCl 0.4 MG CAP PO SCH (20:12)
[2019-07-27] MEDS: Melatonin 3 MG TAB PO PRN (20:13)
[2019-07-27 22:05] LABS: Anion Gap 8 mmol/L (10-20); BUN (Urea Nitrogen) 16 mg/dL (8.4-25.7); Calc. Creatinine Clearance 79 mL/min (70-130); Calcium 8.5 mg/dL (7.8-10.44); Carbon Dioxide 31 mmol/L (23-31); Chloride 96 mmol/L (98-107); Estimated GFR-MDRD 72; Glucose 123 mg/dL (83-110); Magnesium 2.6 mg/dL (1.6-2.6); Phosphorus 2.3 mg/dL (2.3-4.7); Potassium 4.1 mmol/L (3.5-5.1); Sodium 131 mmol/L (136-145)
[2019-07-27] MEDS ORDERED: traMADol HCl 50 MG TAB PO SCH (23:59)
[2019-07-28 05:33] LABS: Band 3 % (5-11); Hemoglobin 11.1 g/dL (14.0-18.0); Lymphocytes 16 % (21-51); MDiff Complete? YES; Mean Corpuscular HGB CONC 28.7 g/dL (32.0-36.0); Mean Corpuscular Hemoglobin 21.6 pg (27.0-31.0); Mean Corpuscular Volume 75.1 fL (78.0-98.0); Mean Platelet Volume 10.4 fL (7.4-10.4); Monocytes 7 % (0-10); Neutrophil 74 % (42-75); Nucleated RBC 1 % (0); Platelet Count 272 thou/uL (130-400); Platelet Morphology Comment Appears Adequate; RBC Distribution Width 17.1 % (11.5-14.5); Red Blood Cell (RBC) Count 5.13 mill/uL (4.70-6.10); White Blood Cell (WBC) Count 9.8 thou/uL (4.8-10.8)
[2019-07-28 05:34] LABS: Anion Gap 9 mmol/L (10-20); BUN (Urea Nitrogen) 16 mg/dL (8.4-25.7); Calc. Creatinine Clearance 84 mL/min (70-130); Calcium 8.4 mg/dL (7.8-10.44); Carbon Dioxide 30 mmol/L (23-31); Chloride 97 mmol/L (98-107); Estimated GFR-MDRD 80; Glucose 108 mg/dL (83-110); Magnesium 2.8 mg/dL (1.6-2.6); Potassium 4.1 mmol/L (3.5-5.1); Sodium 132 mmol/L (136-145)
[2019-07-28] MEDS: Polyethylene Glycol 3350 17 GM Packet PO SCH (08:39)
[2019-07-28] MEDS: hydrALAZINE 20 MG/ML VIAL SLOW IVP PRN (08:40)
[2019-07-28] MEDS: Furosemide 40 MG/4 ML VIAL SLOW IVP SCH ×2 (08:43→16:07)
[2019-07-28] MEDS ORDERED: Carvedilol 3.125 MG TAB PO SCH (08:45)
[2019-07-28] MEDS: Nitroglycerin 2% Ointment 1 INCH/1 GM Packet TOP SCH ×2 (08:46→20:15)
[2019-07-28] MEDS: Lisinopril 20 MG TAB PO SCH ×2 (08:47→20:14)
[2019-07-28] MEDS: Amlodipine 10 MG TAB PO SCH (08:47)
[2019-07-28] MEDS: Aspirin Chewable 81 MG TAB PO SCH (08:47)
[2019-07-28] MEDS: Sodium Chloride 1 GM TAB PO SCH ×3 (08:47→20:15)
[2019-07-28] MEDS: Cyanocobalamin (Vitamin B-12) 1,000 MCG TAB PO SCH (08:47)
[2019-07-28] MEDS: Timolol 0.5% Ophth Soln 5 ml Bottle EA EYE SCH ×2 (08:48→20:15)
--- NOTE | 2019-07-28 08:55 | PRG ---
DATE OF SERVICE: 07/28/2019 SUBJECTIVE: Mr. Johnson is much more lucid today, was not confused at all. He says he has some pain in his shoulders and between his shoulder blades. It is continuous. I do not think that is angina. OBJECTIVE: VITAL SIGNS: Blood pressures, however, as high as 207/88. Pulse 77, it is regular. LUNGS: Clear. CARDIAC: Normal S1, normal S2. ABDOMEN: Soft, nontender. EXTREMITIES: There is only mild edema. LABORATORY DATA: Serum sodium has improved up to 132. Reviewing the records again, the patient has had severe hyponatremia ever since he has been here. Apparently, the sodium was only mildly low at [place] that was the cause of his confusion, however, as the confusion seemed to get better with his improvement in sodium level. ASSESSMENT: 1. Hypertension. 2. Coronary artery disease. 3. Remote history of atrial fibrillation. 4. Hyponatremia, improving. 5. Appears to have some iron deficiency with ferritin of 8.4. 6. Abdominal pain, improved. PLAN: 1. Agree with colonoscopy. 2. If there is no source of bleeding, consideration for starting at least low-dose anticoagulant in the form of Eliquis. We will hold off on that until we see if there is a source of bleeding. 3. Catheterization was done in October 2017 that revealed right coronary occluded, filled by collateral from the left 80% diagonal, small to medium vessel only option, and we will add low-dose beta-blockers. Certainly, he could get angina from the right coronary if he is severely hypertensive. Job ID: [id number]
--- NOTE | 2019-07-28 11:01 | PRG ---
DATE OF SERVICE: 07/28/2019 SERVICE: Nephrology. SUBJECTIVE: An 89-year-old male, seen in followup for hyponatremia and volume overload. The patient reports feeling better. Reportedly, had some sleepless night, only started sleeping around 4 a.m. this morning. Still with bilateral leg edema. Denied nausea, vomiting, dysuria, hematuria, or diarrhea. OBJECTIVE: VITAL SIGNS: Temperature 98.8, pulse 77, respiratory rate 20, SpO2 of 97 on room air, blood pressure is 207/88. Intake and output in the last 24 hours showed total intake of 140 with total output of 1225. This is grossly incomplete and inconclusive. GENERAL: Obese male, in no obvious distress. Afebrile, anicteric, acyanotic. HEENT: Normocephalic and atraumatic. Oral mucosa is moist. CARDIOVASCULAR: Regular rhythm and rate with normal heart sounds 1 and 2. RESPIRATORY: Fair air entry bilaterally with few bibasilar crackles posteriorly. No obvious rhonchi or use of accessory muscles appreciated. GI: Obese, soft, nontender, nondistended with normal bowel sounds. EXTREMITIES: [id number] bilateral leg edema noted. DISTRIBUTION ACCOUNTING CLERK: Conscious, alert, oriented x3 with appropriate mental status. DIAGNOSTIC DATA: CBC showed WBC count of 9.8, hemoglobin of 11.1, MCV of 75.1, platelets of 272. Chemistry showed sodium 132, potassium 4.1, chloride 97, CO2 of 30, BUN 15, creatinine 0.90, glucose 108, calcium 8.4, magnesium 2.8. ASSESSMENT: 1. Hyponatremia: Multifactorial from congestive heart failure and presumed syndrome of inappropriate antidiuretic hormone secretion. Sodium is trending up with diuretics and salt tablets. 2. Volume overload: The patient is still with bilateral leg edema. 3. Microcytic anemia due to iron deficiency anemia. Etiology is unclear. Colonoscopy is planned. 4. Hypertension: Control is suboptimal. Amlodipine held yesterday due to the leg edema and proteinuria, while lisinopril was augmented, but blood pressure is still suboptimally controlled. PLAN: 1. We will restart amlodipine for now to get adequate BP control. 2. Agree with hydralazine IV p.r.n. for acute elevations in blood pressure. 3. We will increase Lasix IV 40 mg b.i.d. to improve volume overload as well as help in BP control. 4. We will recheck electrolytes and renal function test in the morning. Further treatment to follow depending on hospital course. Job ID: [id number]
--- NOTE | 2019-07-28 12:12 | PRG ---
DATE OF SERVICE: 07/28/2019 REASON FOR CONSULTATION: Iron deficiency anemia, chronic abdominal pain. SUBJECTIVE: The patient states that he had difficulty sleeping last night, but was ultimately given a medication to help him rest at approximately 3 to 4 a.m. this morning. He also states that he had a small semi-solid bowel movement this morning that was nonbloody and confirmed via nursing staff. Otherwise, he states that his abdominal pain has completely resolved, and his altered mental status has also resolved as well. Otherwise, he denies any nausea, vomiting, fevers, chills, hematemesis, melena, hematochezia, dysphagia, or odynophagia. OBJECTIVE: VITAL SIGNS: Temperature 97.6, pulse 79, blood pressure 138/83, respiratory rate 18, saturating 99% on room air. GENERAL: The patient was lying in bed, in no acute distress. Alert and oriented x4. CARDIOVASCULAR: Regular rate and rhythm. RESPIRATORY: Clear to auscultation bilaterally. ABDOMEN: Normoactive bowel sounds. Soft, nontender, nondistended. EXTREMITIES: No cyanosis, clubbing, or edema. LABORATORY DATA: CBC with a white blood cell count of 9.8, hemoglobin 11.1, hematocrit 38.5, platelets 272. Chemistry with a sodium of 132, potassium 4.1, chloride 97, CO2 of 30, BUN 16, creatinine 0.9, glucose 108. IMAGING DATA: No current GI imaging is available for review. ASSESSMENT AND PLAN: The patient is an 89-year-old male with past medical history of coronary artery disease, status post stent placement; atrial fibrillation; hypertension; hyperlipidemia; degenerative joint disease; benign prostatic hypertrophy; history of colonic polyps with the last colonoscopy performed in 2010 (also with a family history of colon cancer); and chronic anemia, now presenting with increased generalized abdominal pain (now resolved) and iron deficiency anemia. Iron deficiency anemia: The patient is presenting with a history of chronic anemia, but was noted to have a decrease during this admission when compared to previous/baseline. Further testing showed a significantly low ferritin consistent with iron deficiency anemia. At this time, he denies any overt episodes of bleeding from any source, but given the abdominal pain on admission, personal history of colon polyps, and a family history of colon cancer (albeit in a first-degree relative greater than the age of 60), it is concerning for possible neoplastic process. Currently, the patient is doing well in terms of his electrolyte status with his sodium almost at normal levels at which point, proceeding with endoscopic evaluation is indicated. Recommendations: 1. Continue with management of his hyponatremia. 2. Continue to trend his H and H and transfuse as necessary to maintain an H and H of 7/21. 3. Continue to monitor clinically for signs of active GI bleeding. 4. We will place the patient on a clear liquid diet today in preparation for the EGD and colonoscopy tomorrow. Would give approximately 2 L of GoLYTELY tonight starting at 8:00 p.m. with the remaining 2 L tomorrow at 3:00 a.m. in preparation for colonoscopy tomorrow. Generalized abdominal pain: The patient initially presented with increased generalized abdominal pain, but has significantly improved during the course of this hospitalization at the point of resolution at this time. At this point, the etiology of his abdominal pain is unclear, but could be due to either urinary or colonic origin, especially given the incidental finding of a renal mass during this hospitalization. Recommendations: 1. Would continue with current bowel regimen and evaluation of the renal mass. 2. Pain control per primary team. We will continue to follow. Please call with any questions. Job ID: [id number]
--- NOTE | 2019-07-28 12:18 | PDOC.HOSPP ---
- Subjective Encounter Date: 07/28/19 Subjective: Doing ok. Reports some shoulder pain bilaterally. Arthritis type pains. - Objective Vital Signs & Weight: Vital Signs (12 hours) Temp Pulse Resp BP BP Pulse Ox 07/28/19 11:31 97.6 F 79 18 138/83 99 07/28/19 08:48 77 207/88 H 07/28/19 08:47 77 207/88 H 07/28/19 08:40 77 207/88 H 07/28/19 07:31 97 07/28/19 07:30 98.8 F 77 20 207/88 H 97 07/28/19 03:50 98.5 F 67 18 174/83 H 94 L Weight Weight 225 lb 1.6 oz I&O: 07/27/19 07/28/19 07/29/19 06:59 06:59 06:59 Intake Total 240 300 Output Total 1375 425 450 Balance -1375 -185 -150 Result Diagrams: 07/28/19 04:53 07/28/19 04:53 Hospitalist ROS - Medication Medications: Active Medications Generic Name Dose Route Start Last Admin Trade Name Freq PRN Reason Stop Dose Admin Acetaminophen 650 mg 07/24/19 09:15 07/27/19 20:13 Tylenol PO 650 mg Q4H PRN Administration Headache/Fever/Mild Pain (1-3) Al Hydroxide/Mg Hydroxide 30 ml 07/24/19 23:07 07/25/19 17:47 Maalox PO 30 ml Q4H PRN Administration Indigestion Amlodipine Besylate 10 mg 07/26/19 09:00 07/28/19 08:47 Norvasc PO 10 mg DAILY JAMES Administration Aspirin 81 mg 07/25/19 09:00 07/28/19 08:47 Aspirin Chewable PO 81 mg DAILY JAMES Administration Atorvastatin Calcium 40 mg 07/24/19 21:00 07/27/19 20:10 Lipitor PO 40 mg HS JAMES Administration Bisacodyl 10 mg 07/26/19 17:09 07/27/19 14:54 Dulcolax NE 10 mg DAILYPRN PRN Administration Constipation Calcium Carbonate 1,000 mg 07/24/19 16:32 07/27/19 20:13 Tums PO 1,000 mg Q4H PRN Administration Heartburn or Indigestion Cholecalciferol 1,000 units 07/25/19 09:00 07/28/19 08:47 Vitamin D3 PO 1,000 units DAILY JAMES Administration Cyanocobalamin 1,000 mcg 07/25/19 09:00 07/28/19 08:47 Vitamin B-12 PO 1,000 mcg DAILY JAMES Administration Furosemide 40 mg 07/28/19 08:00 07/28/19 08:43 Lasix SLOW IVP 40 mg 0800,1600 JAMES Administration Hydralazine HCl 10 mg 07/25/19 09:54 07/28/19 08:40 Apresoline SLOW IVP 10 mg Q4H PRN Administration Hypertension Lisinopril 20 mg 07/27/19 09:00 07/28/19 08:47 Zestril PO 20 mg BID JAMES Administration Magnesium Hydroxide 30 ml 07/25/19 09:53 07/25/19 10:37 Milk Of Magnesium PO 30 ml DAILYPRN PRN Administration Constipation Magnesium Oxide 400 mg 07/24/19 21:00 07/27/19 20:10 Magnesium Oxide PO 400 mg HS JAMES Administration Melatonin 3 mg 07/26/19 22:40 07/27/19 20:13 Melatonin PO 3 mg HS PRN Administration Insomnia Nitroglycerin 0.4 mg 07/24/19 09:30 07/25/19 12:58 Nitrostat SL 0.4 mg Q5MIN JAMES Administration Nitroglycerin 1 inch 07/25/19 21:00 07/28/19 08:46 Nitro-Bid 2% Ointment TOP 1 inch BID JAMES Administration Pantoprazole Sodium 40 mg 07/24/19 21:00 07/28/19 08:47 Protonix PO 40 mg BID JAMES Administration Polyethylene Glycol 17 gm 07/26/19 09:00 07/28/19 08:39 Miralax PO 17 gm DAILY JAMES Administration Senna/Docusate Sodium 2 tab 07/24/19 20:50 07/24/19 21:12 Senokot S PO 2 tab BIDPRN PRN Administration Constipation Sodium Chloride 10 ml 07/24/19 09:14 07/26/19 21:38 Flush - Normal Saline IVF 10 ml PRN PRN Administration Saline Flush Sodium Chloride 1 gm 07/25/19 21:00 07/28/19 08:47 Sodium Chloride PO 1 gm TID JAMES Administration Tamsulosin HCl 0.4 mg 07/24/19 21:00 07/27/19 20:12 Flomax PO 0.4 mg HS JAMES Administration Timolol Maleate 1 drop 07/24/19 21:00 07/28/19 08:48 Timoptic 0.5% Ophth Soln EA EYE 1 drop BID JAMES Administration - Exam General Appearance: NAD, awake alert General - other findings: Obese. Heart: RRR, no murmur, no gallops, no rubs, normal peripheral pulses Respiratory: CTAB, no wheezes, no rales, no ronchi, normal chest expansion, no tachypnea, normal percussion Gastrointestinal: soft, non-tender, non-distended, normal bowel sounds, no palpable masses, no hepatomegaly, no splenomegaly, no bruit Extremities: no cyanosis, no clubbing, no edema Skin: normal turgor Neurological: no focal deficits Musculoskeletal: normal tone Psychiatric: normal affect, normal behavior, A&O x 3 Hosp A/P (1) TIA (transient ischemic attack) Code(s): G45.9 - TRANSIENT CEREBRAL ISCHEMIC ATTACK, UNSPECIFIED Status: Acute (2) History of atrial fibrillation Code(s): Z86.79 - PERSONAL HISTORY OF OTHER DISEASES OF THE CIRCULATORY SYSTEM Status: Acute (3) Coronary artery disease Code(s): I25.10 - ATHSCL HEART DISEASE OF [place] CORONARY ARTERY W/O ANG PCTRS Status: Acute (4) Hyperlipidemia Code(s): E78.5 - HYPERLIPIDEMIA, UNSPECIFIED Status: Acute (5) BPH (benign prostatic hyperplasia) Code(s): N40.0 - BENIGN PROSTATIC HYPERPLASIA WITHOUT LOWER URINRY TRACT SYMP Status: Acute (6) Hypertension Code(s): I10 - ESSENTIAL (PRIMARY) HYPERTENSION Status: Chronic (7) Obesity (BMI 30-39.9) Code(s): E66.9 - OBESITY, UNSPECIFIED Status: Chronic (8) Hyponatremia Code(s): E87.1 - HYPO-OSMOLALITY AND HYPONATREMIA Status: Acute (9) Urinary retention Code(s): R33.9 - RETENTION OF URINE, UNSPECIFIED Status: Acute (10) History of prostate cancer Code(s): Z85.46 - PERSONAL HISTORY OF MALIGNANT NEOPLASM OF PROSTATE Status: Acute (11) Renal mass Code(s): N28.89 - OTHER SPECIFIED DISORDERS OF KIDNEY AND URETER Status: Acute - Plan TIA/acute metabolic encephalopathy: Echo and carotid Dopplers were unremarkable. EEG normal. Brain MRI negative for acute findings. At this point is concerning that his symptoms may be related to rapidly decreasing sodium levels. Appears resolved. Hyponatremia: Patient has developed significant hyponatremia very rapidly. Appreciate nephrology assistance. Given diuretic today and on fluid restriction. Much improved. Sodium is up to 133 today. Abdominal pain: Given his recurrent abdominal pain and iron deficiency anemia he will likely need endoscopy. Because of his electrolyte issues and cardiac history will need to do that while he is here in the hospital. Currently the plan is to do a bowel prep today and endoscopy on Wednesday. Renal mass: Discussed the case with urology. The mass is probably a little too big to consider cryo therapy. It is in the parenchyma of the kidney and not exophytic. Would likely be a bit of a complicated surgery. Patient has a urologist who has been following him for his prior prostate cancer. Currently the recommendation is to consider repeat imaging in about 6 months. coronary artery disease: Continue with the patient's usual home regimen including the aspirin. Hypertension: Patient's blood pressure continues to run a bit high but improved. His amlodipine has been discontinued and that appears to have improved his lower extremity edema. May improve his constipation issues as well. His BISI inhibitor has been increased. We will continue to monitor. History of atrial fibrillation: Again the patient had a history of transient atrial fibrillation. It resolved quickly with amiodarone. This was not continued. The patient was not placed on anticoagulation because of concerns regarding iron deficiency anemia. Cards consult appreciated. Recommended asa only. Reassess after endoscopy.
[2019-07-28] MEDS: Carvedilol 3.125 MG TAB PO SCH (16:06)
[2019-07-28] MEDS: GoLYTELY 4,000 ml Bottle PO SCH (20:12)
[2019-07-28] MEDS: Magnesium Oxide 400 MG TAB PO SCH (20:14)
[2019-07-28] MEDS: Atorvastatin Calcium 40 MG TAB PO SCH (20:14)
[2019-07-28] MEDS: Tamsulosin HCl 0.4 MG CAP PO SCH (20:15)
[2019-07-28] MEDS: Melatonin 3 MG TAB PO PRN (23:41)
[2019-07-29] MEDS: GoLYTELY 4,000 ml Bottle PO SCH (02:54)
[2019-07-29 05:56] LABS: #Eosinphils 0.1 thou/uL (0.0-0.7); #Monocytes 1.4 thou/uL (0.11-0.59); #Neutrophils 8.5 thou/uL (1.40-6.50); %Basophils 0.3 % (0.0-1.0); %Eosinophils 1.1 % (0.0-10.0); %Lymphocytes 9.1 % (21.0-51.0); %Monocytes 12.6 % (0.0-10.0); %Neutrophils 76.9 % (42.0-75.0); Hemoglobin 11.9 g/dL (14.0-18.0); Mean Corpuscular HGB CONC 30.9 g/dL (32.0-36.0); Mean Corpuscular Volume 74.4 fL (78.0-98.0); Mean Platelet Volume 10.2 fL (7.4-10.4); Platelet Count 307 thou/uL (130-400); RBC Distribution Width 17.1 % (11.5-14.5); Red Blood Cell (RBC) Count 5.15 mill/uL (4.70-6.10)
[2019-07-29 06:14] LABS: Anion Gap 11 mmol/L (10-20); BUN (Urea Nitrogen) 13 mg/dL (8.4-25.7); Calc. Creatinine Clearance 88 mL/min (70-130); Calcium 8.3 mg/dL (7.8-10.44); Carbon Dioxide 32 mmol/L (23-31); Chloride 92 mmol/L (98-107); Estimated GFR-MDRD 85; Glucose 105 mg/dL (83-110); Potassium 3.2 mmol/L (3.5-5.1); Sodium 132 mmol/L (136-145)
[2019-07-29] MEDS: Carvedilol 3.125 MG TAB PO SCH ×2 (07:24→16:10)
[2019-07-29] MEDS ORDERED: Potassium Chloride 20 MEQ TAB PO SCH ×3 (08:45→18:00)
[2019-07-29] MEDS ORDERED: Ketamine 50 MG/ML (10ML VIAL) ONE (08:58)
--- NOTE | 2019-07-29 10:05 | OP ---
DATE OF PROCEDURE: 07/29/2019 INDICATION FOR PROCEDURE: Iron deficiency anemia PROCEDURES PERFORMED: Esophagogastroduodenoscopy with biopsy and colonoscopy (diagnostic). DESCRIPTION OF PROCEDURES: After the risks and benefits of the procedures were explained to the patient including risks of bleeding, infection, perforation, reactions to anesthesia, aspiration, and/or pain, informed consent was obtained. The patient was then taken to the endoscopy suite, where he was placed in the left lateral decubitus position, followed by introduction of deep sedation via propofol and anesthesia support. Once adequate sedation was achieved, the standard gastroscope was introduced into the mouth with intubation of the esophagus, stomach, and the proximal small intestines with the findings listed below. The patient tolerated the procedure well with no immediate perioperative complications. On conclusion of this portion of the procedure, all equipment was removed from the patient and the bed was rotated 180 degrees in anticipation of the colonoscopy. After a digital rectal examination was performed, the standard colonoscope was then introduced into the rectum and advanced to the cecum with some difficulty due to tortuosity of the colon as well as redundancy of the colon that required manual abdominal pressure to facilitate passage of the scope. The quality of the prep was good with a small amount of retained semi-solid stool that was easily removed with irrigation and suctioning. The patient tolerated the procedure well with no immediate perioperative complications. Upon conclusion of the procedure, all equipment was removed from the patient and he was transferred to PACU in satisfactory condition. EGD FINDINGS: Esophagus: Normal-appearing mucosa was seen in the proximal, mid, and distal esophagus. There was no evidence of erosions, ulcerations, mass lesions, or active/recent bleeding. Stomach: Normal-appearing mucosa was seen in the gastric cardia, fundus, body, greater curvature, antrum, and incisura. 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 Otherwise, there was no evidence of erosions, ulcerations, mass lesions, or active/recent bleeding. Duodenum: Normal-appearing mucosa was seen in both the duodenal bulb and second portion of the duodenum. There was no evidence of erosions, ulcerations, mass lesions, or active/recent bleeding. Multiple random biopsies were taken from the duodenal bulb and second portion of the duodenum for evaluation of possible celiac sprue. IMPRESSION: 1. 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 2. Otherwise normal upper endoscopy. COLONOSCOPY FINDINGS: Digital rectal exam: Medium sized to large external hemorrhoids were seen on external examination with large perianal skin tag associated with them. Otherwise, no masses were seen or palpated. Colon findings: Small amount of retained semi-solid stool was seen at various points throughout the colon that was easily removed with irrigation with sterile water and suctioning with adequate visualization of the colonic mucosa. Normal-appearing mucosa was seen in the cecum as well as at the ileocecal valve and appendiceal orifice. Scattered small and large mouth diverticula were seen throughout the entire colon in the ascending, transverse, descending, and sigmoid colons. Otherwise, normal-appearing mucosa was seen in the ascending, transverse, descending, sigmoid colon, and rectum. Small to medium-sized internal hemorrhoids were seen on rectal retroflexion. IMPRESSION: 1. Moderate pancolonic diverticulosis without evidence of diverticulitis. 2. Medium-sized internal and external hemorrhoids (unlikely to be the source of the patient's anemia). 3. Otherwise normal colonoscopy. RECOMMENDATIONS: 1. Would continue to trend the patient's H and H and transfuse as necessary to maintain an H and H of 7/21. 2. Continue to monitor clinically for signs of active GI bleeding. 3. Would pursue a non-GI workup of the iron deficiency anemia, especially in light of the patient's renal mass. 4. We will continue with iron supplementation as you are doing. 5. If the renal workup is essentially negative and the patient continues to have iron deficiency anemia after supplementation, would then consider a capsule endoscopy for further evaluation of the GI tract (to be performed as an outpatient). 6. We will follow up on the biopsy results for possible celiac sprue (unlikely). We will sign off at this time. Please call with any questions. Job ID: [id number]
[2019-07-29] MEDS: Sodium Chloride 1 GM TAB PO SCH (10:52)
[2019-07-29] MEDS: Furosemide 40 MG/4 ML VIAL SLOW IVP SCH ×2 (10:52→15:20)
[2019-07-29] MEDS: Polyethylene Glycol 3350 17 GM Packet PO SCH (10:52)
[2019-07-29] MEDS: Aspirin Chewable 81 MG TAB PO SCH (10:53)
[2019-07-29] MEDS: Cyanocobalamin (Vitamin B-12) 1,000 MCG TAB PO SCH (10:53)
[2019-07-29] MEDS: Amlodipine 10 MG TAB PO SCH (10:53)
[2019-07-29] MEDS: Nitroglycerin 2% Ointment 1 INCH/1 GM Packet TOP SCH (10:54)
[2019-07-29] MEDS: Timolol 0.5% Ophth Soln 5 ml Bottle EA EYE SCH (11:05)
[2019-07-29 12:11] VITALS: TEMP 96.7
[2019-07-29] MEDS: Lisinopril 20 MG TAB PO SCH (14:36)
[2019-07-29 14:37] VITALS: BP 119/77
--- NOTE | 2019-07-29 15:13 | PRG ---
DATE OF SERVICE: 07/29/2019 SERVICE: Nephrology. SUBJECTIVE: An 89-year-old male seen in followup for volume overload and hyponatremia. The patient had EGD and colonoscopy earlier today. Feeling better. Desires to be discharged home. Denied nausea, vomiting, abdominal pain, or shortness of breath. OBJECTIVE: VITAL SIGNS: Temperature 96.7, pulse 75, respiratory rate 14, SpO2 of 97 on room air, and blood pressure 161/74. I and O in the last 24 hours showed total intake of 5000 mL, which included bowel preparation with total output of 950. Of note, urine output was inconclusive. Weight, however, has dropped from 235 on admission to 223. GENERAL: Obese male, in no obvious distress. Afebrile. Anicteric. Acyanotic. HEENT: Normocephalic and atraumatic. Oral mucosa is moist. CARDIOVASCULAR: Regular rhythm and rate. Normal heart sounds 1 and 2. RESPIRATORY: Fair air entry bilaterally with some transmitted breath sounds, but no obvious crackle or rhonchi or use of accessory muscles. GI: Obese, soft, nontender, and nondistended with normal bowel sounds. EXTREMITIES: Mild bilateral leg edema noted. ENTRY REP: Conscious and alert and oriented x3 with appropriate mental status. Cranial nerves 2 through 12 are grossly intact. DIAGNOSTIC DATA: CBC showed WBC count of 11.0, hemoglobin of 11.9, platelets of 307, and MCV of 74.4. Chemistry showed sodium 132, potassium 3.2, chloride 92, CO2 of 32, BUN 13, creatinine 0.85, glucose 105, and calcium 8.3. ASSESSMENT: 1. Hypokalemia: Due to diuretic therapy. 2. Hyponatremia: Improved with salt tablets and diuretics. Mayo to be related to syndrome of inappropriate antidiuretic hormone and congestive heart failure exacerbation. 3. 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 4. Proteinuria. 5. Hypertension: Control is better with recommencement of amlodipine, which was initially stopped due to proteinuria. 6. Volume overload: Improved with diuretic therapy. 7. Iron-deficiency anemia, status post esophagogastroduodenoscopy and colonoscopy. PLAN: 1. We will replete serum potassium with potassium chloride. 2. We will continue fluid restriction as well as diuretic therapy. 3. We will, however, discontinue salt tablets. DISPOSITION: The patient can be discharged from Nephrology point of view. Close outpatient followup with repeat BMP is recommended. Appointment is made for the patient to be seen on 08/07 at 10 a.m. Anticipate the patient going home on diuretic therapy. Job ID: [id number]
[2019-07-29] MEDS ORDERED: EPHEDRINE 25 MG/5 ML SYRINGE ONE (15:36)
[2019-07-29] MEDS ORDERED: PROPOFOL 200 MG/20 ML VIAL ONE (15:36)
--- NOTE | 2019-07-29 20:23 | DIS ---
DATE OF ADMISSION: 07/24/2019 DATE OF DISCHARGE: 07/29/2019 DISCHARGE DIAGNOSES: As of the followin. Transient ischemic attack. 2. Acute metabolic encephalopathy. 3. Remote history of atrial fibrillation. 4. Left renal tumor. 5. Coronary artery disease. 6. Hyperlipidemia. 7. Benign prostatic hypertrophy. 8. Hypertension. 9. Obesity. 10. Hyponatremia, resolved. 11. History of prostate cancer. 12. Renal mass. HOSPITAL COURSE: The patient is an 89-year-old male, who initially presented to the hospital with change in mental status. The patient initially presented to the hospital with change in mental status and at this time, he was admitted for possible TIA. At this time, the patient underwent a CT head which was negative. He also had echocardiogram, carotid Dopplers and brain MRI. 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 No hemodynamically significant stenosis was noted. He also had an MRI of brain, which showed atrophic and chronic white matter changes. No evidence of acute infarct was noted. He had an echocardiogram, which indicated an EF of 55% to 60% with mitral regurgitation and mild tricuspid regurgitation. The patient at this time was seen by Neurology. Neurology recommended EEG, if his confusion did not resolve. The patient did undergo an EEG, which indicated mild generalized nonspecific cerebral dysfunction. No ictal or interictal epileptiform abnormalities seen during the recording. The patient at this time also was noted to have hyponatremia. His sodium was noted to be 122. He was seen by Nephrology services. He was initially put on salt tablets. 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 The patient was put on as I mentioned salt tablets. His sodium improved. The patient continued to improve. He was then seen by GI for abdominal pain and iron deficiency anemia. At this time, an EGD, colonoscopy was done, which indicated no active bleeding form. 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 The patient continued to improve throughout the hospital stay. He also had an abdominal pelvic CTA, which indicated a fat containing umbilical hernia with linear stranding of minimal amount of edema, also heterogenic enhancing inferior pole left renal mass, neoplasm is diagnosis of exclusion. Also difficult to characterize hypodense lesion posterior segment to the right hepatic lobe. At this time, per the notes from the prior hospitalization, urology was consulted who recommended a followup in 6 months for repeat CAT scan to see, if this is changing. Apparently, patient's Urologist is Dr. Mercado. I did speak with the patient's about this and asked her to follow up with a urologist. However, when I spoke with her, she stated that she did not have a urologist. At this time, I have given her a urologist in [place]. I have also asked her to ask her to get the records from our hospital to make an appointment in the next week or so. I also educated her that he will be started on Eliquis and not using drugs such as ibuprofen or Advil while he is on Eliquis. She understands and also noted that if he starts having any dark stools or bright blood stools that she needs to bring him to the ER. He has a remote history of atrial fibrillation and per cardiology's recommendations this was something to be restarted. The patient post EGD colonoscopy did well. DISCHARGE MEDICATIONS: He will be discharged home on the following medications: 1. Eliquis 5 mg twice daily. 2. Lisinopril 20 mg twice daily. 3. Norvasc 1 p.o. daily. 4. Furosemide 1 p.o. daily. 5. Atorvastatin 1 p.o. at bedtime. 6. Protonix 40 mg twice daily. 7. Aspirin 80 mg daily. 8. Tamsulosin 0.4 at bedtime. 9. Magnesium oxide 400 mg p.o. at bedtime. PHYSICAL EXAMINATION: VITAL SIGNS: Temperature of 96.7, 75, 119/77, 14, 97% on room air. GENERAL: He is awake, alert, oriented x3. Does not appear in distress. CV: S1, S2 present. No murmurs, rubs, or gallops. ABDOMEN: Soft and nontender. Bowel sounds are present x2. I spoke with Nephrology who will follow up with the patient as an outpatient. I also have provided the phone number for a urologist in [place] since the patient's stated that it is difficult for her to drive back and forth. He will also follow up with his primary care doctor. Job ID: [id number]
== END 2019-07-29 16:16 | disposition home or self-care (01) | DRG 643 ==
LOC: T4-B 04:21 → 2SE 05:03
PROVIDERS: ADMIT Family Medicine; ATTEND Internal Medicine
PROC: 0DB78ZX Excision of Stomach, Pylorus, Via Natural or Artificial Opening Endoscopic, Diagnostic (ICD-10-PCS; principal; 2019-07-29)
PROC: 0DJD8ZZ Inspection of Lower Intestinal Tract, Via Natural or Artificial Opening Endoscopic (ICD-10-PCS; 2019-07-29)
DX: E22.2 Syndrome of inappropriate secretion of antidiuretic hormone (principal); G93.41 Metabolic encephalopathy; G45.9 Transient cerebral ischemic attack, unspecified; D50.9 Iron deficiency anemia, unspecified; K31.819 Angiodysplasia of stomach and duodenum without bleeding; I48.91 Unspecified atrial fibrillation; I25.10 Atherosclerotic heart disease of native coronary artery without angina pectoris; I10 Essential (primary) hypertension; E78.5 Hyperlipidemia, unspecified; M19.90 Unspecified osteoarthritis, unspecified site; N40.0 Benign prostatic hyperplasia without lower urinary tract symptoms; E66.9 Obesity, unspecified; I73.9 Peripheral vascular disease, unspecified; E87.70 Fluid overload, unspecified; K57.30 Diverticulosis of large intestine without perforation or abscess without bleeding; K64.8 Other hemorrhoids; E78.00 Pure hypercholesterolemia, unspecified; E87.6 Hypokalemia; K59.00 Constipation, unspecified; I25.2 Old myocardial infarction; Z79.899 Other long term (current) drug therapy; Z68.34 Body mass index [BMI] 34.0-34.9, adult; Z88.0 Allergy status to penicillin; Z88.5 Allergy status to narcotic agent; Z88.8 Allergy status to other drugs, medicaments and biological substances; Z79.82 Long term (current) use of aspirin; Z85.46 Personal history of malignant neoplasm of prostate
CPT/HCPCS: 36415; 70551; 74174; 80048; 80061; 80069; 82570; 82728; 83540; 83550; 83735; 83930; 83935; 84100; 84156; 84300; 84443; 84484; 85007; 85025; 85027; 88305; 93005; 93010; 93306; 93880; 95712; 95816; 95819; 95957; J0360; J1940; J2704; J2916; J3490; Q0162